=== PATIENT | male | born 1940 | race Caucasian/White ===

== ENCOUNTER 2018-03-28 09:29 | Emergency (ER) | payer MEDICARE, OTHER, SELFPAY ==
[2018-03-28] VITALS (11 sets, daily range): BP systolic 132–156; BP diastolic 71–96; PULSE 60–77; RESP 14–22; TEMP 36.2; O2SAT 95–99
--- NOTE | 2018-03-28 09:44 | ED_ITS ---
HPI - Neuro Symptoms/Deficit General Chief Complaint: Neuro Symptoms/Deficit Stated Complaint: headache Time Seen by Provider: 03/28/18 09:41 Source: patient Mode of arrival: ambulatory Limitations: no limitations History of Present Illness HPI Narrative: Patient has been confused since yesterday, and states he has been forgetting things, like his address. He has also been forgetting phone numbers he usually knows by heart. Patient states he had 3 ?TIAs? 2 days ago; however, when questioned, the episodes were dizzy spells that lasted for few seconds each. Patient denies any focal neurologic deficits at that time, though he does feel that his mentation has been slow over the last day. His friend, who is accompanied him, states that he seems to be functioning more slowly than usual. Patient denies chest pain, shortness of breath, nausea, or vomiting. No recent illnesses. No head trauma recently. Patient has never been formally diagnosed with a cerebral vascular accident of any kind. He states that he has been having the dizzy episodes for many years on and off, and that he calls them TIAs because a friend of his told him he was having TIAs when he had these episodes. Patient does note that he has had a very bad headache today. On Anticoagulants: Yes (ASA 81 mg) Related Data Home Medications Medication Instructions Recorded Confirmed ezetimibe [Zetia] 10 mg PO QPM #0 06/10/12 03/28/18 rosuvastatin [Crestor] 20 mg PO QPM #0 06/10/12 03/28/18 Fish Oil 1 cap PO BID 03/28/18 03/28/18 Vitamin D3 1 cap PO DAILY 03/28/18 03/28/18 ascorbic acid (vitamin C) [Vitamin 8 tab PO DAILY PRN 03/28/18 03/28/18 C] betamethasone valerate 1 applic TOPICAL DIRECTED 03/28/18 03/28/18 ibuprofen [Advil] 1 tab PO PRN PRN 03/28/18 03/28/18 multivitamin 1 tab PO DAILY 03/28/18 03/28/18 niacinamide 1 dose PO DIRECTED 03/28/18 03/28/18 omeprazole 1 cap PO DAILY 03/28/18 03/28/18 prednisone 1 dose PO DIRECTED 03/28/18 03/28/18 tamsulosin 1 - 2 cap PO DAILY 03/28/18 03/28/18 Previous Rx's Medication Instructions Recorded sumatriptan succinate [Imitrex] 50 mg PO Q2-4H PRN #20 tab 03/28/18 Allergies Allergy/AdvReac Type Severity Reaction Status Date / Time Sulfa (Sulfonamide Allergy Unknown Verified 03/28/18 09:37 Antibiotics) Review of Systems Review of Systems All systems reviewed & are unremarkable except as noted in HPI and below Constitutional Denies chills, Denies fever(s), Denies lethargy and Denies weakness Eyes Denies change in vision, Denies eye discharge, Denies irritation and Denies loss of vision ENT Ears, Nose, Mouth, and Throat: Denies change in voice, Reports dizziness, Denies neck pain and Denies sore throat Cardiovascular Denies chest pain, Denies irregular heart rhythm, Denies lightheadedness, Denies palpitations, Denies dyspnea, Denies dyspnea on exertion and Denies orthopnea Respiratory Denies cough, Denies dyspnea, Denies dyspnea on exertion and Denies wheezing Gastrointestinal Gastrointestinal: Denies abdominal pain, Denies change in bowel habits, Denies diarrhea, Denies nausea and Denies vomiting Genitourinary Denies hematuria, Denies flank pain, Denies urinary incontinence and Denies urinary urgency Musculoskeletal Denies neck pain Integumentary/Breasts Denies pruritus, Denies erythema, Denies rash and Denies wounds Neurologic Reports confusion, Reports dizziness, Denies loss of vision and Denies weakness Psychiatric Denies anxiety, Reports confusion, Denies depression, Denies homicidal ideation and Denies suicidal ideation Endocrine Denies palpitations Hematologic/Lymphatic Denies easy bruising Allergic/Immunologic Denies wheezing [facility] Medical History Hyperlipemia (Acute) Migraine (Acute) Atypical chest pain (Acute) Surgical History History of angioplasty Social History Smoking Status: Never smoker Exam Initial Vital Signs Initial Vital Signs: Vital Signs Temperature 97.1 F L 03/28/18 09:33 Pulse Rate 74 03/28/18 09:33 Respiratory Rate 14 03/28/18 09:33 Blood Pressure 133/75 03/28/18 09:33 Pulse Oximetry 98 03/28/18 09:33 Const General: cooperative and well developed Nutritional Appearance: well nourished Orientation: alert, awake, oriented x3 and not confused [facility] Head: normocephalic and atraumatic Ears: external ears normal and TM's normal bilaterally Nose: external nose normal and No nasal discharge Face and sinus: sinuses nontender, face symmetric, no sinus tenderness and No dry mucous membranes Mouth: oral mucosae normal and moist mucous membranes Teeth and gingiva: dentition normal Throat: tonsils normal and uvula midline Eyes General: appearance normal, both eyes and all related structures Eyelids: eyelids normal Conjunctivae: conjunctivae normal Sclera: sclerae normal Pupils: PERRL EOM: EOM intact bilaterally Neck Neck: normal visual inspection, trachea midline, No lymphadenopathy, No midline deformity and No JVD Lymphatic: No lymphedema Chest Chest: normal inspection of the chest Resp Effort & Inspection: normal respiratory effort, able to speak in complete sentences, no respiratory distress and no use of accessory muscles Auscultation: clear to auscultation bilaterally, no rales, no rhonchi and no wheezes Cardio Rate: regular rate Rhythm: regular rhythm Heart Sounds: no click, no gallops, no murmurs and no rubs Pulses: normal peripheral pulses GI Inspection: non-distended Palpation: soft, no hepatosplenomegaly, No guarding, No pulsatile mass and No tender Auscultation: normal bowel sounds Back/Spine/Pelvis Back: No CVA tenderness Cervical Spine: cervical ROM normal and No pain with cervical ROM Thoracic/Lumbar Spine: thoracic and lumbar spine normal to inspection Skin General: no rashes or lesions noted, No jaundice and No petechiae Neuro General: alert, oriented x3, gait normal and no focal motor deficits Speech: speech normal Gait: normal gait Motor: muscle tone normal throughout, strength 5/5 throughout, no pronator drift , no movement abnormalities noted, No fasciculations, No movement abnormality noted and No tremor Sensory Exam: no sensory deficits noted Other: Patient's neurologic exam is essentially normal. Extrem General: full ROM, no clubbing, cyanosis or edema, no pedal edema and no calf tenderness Psych Appearance: well kempt Mental Status: mental status grossly normal Attitude: cooperative Thought Content: normal and suicidality Judgment: judgment good Course Course Narrative: Patient was worked up in the emergency department with labs, EKG, and head CT. He was also treated symptomatically. Head CT was normal, so at this point, an MRI of the brain was ordered to sort out the dizzy episodes the patient was having. While patient was waiting to have his MRI done he was noted to have a run of narrow complex, supraventricular appearing tachycardia, for approximately 12 beats. This was noted on the surveillance monitor by staff. Patient was immediately asked how he was feeling if he had just felt dizzy and patient stated ?yes?. I felt that this was the most likely cause of the patient 's episodes of dizziness. However, since patient had other vague neurologic symptoms, I did go ahead with the MRI, which was found to be negative. I did go back and speak with the patient, his girlfriend, and his friend, all of who agreed the patient was back to his normal baseline. I have discussed with him the results of his tests, as well as home management of his symptoms. Patient is advised to follow up with his primary care physician, as well as Cardiology regarding the tachyarrhythmias. We have discussed the usual indications for return. Orders Ordered: Discontinued Medications Acetaminophen (Tylenol) 975 mg PO NOW ONE Stop: 03/28/18 11:32 Last Admin: 03/28/18 11:36 Dose: 975 mg Ketorolac Tromethamine (Toradol) 30 mg IV NOW ONE Stop: 03/28/18 11:32 Last Admin: 03/28/18 11:37 Dose: 30 mg Morphine Sulfate (Morphine) 4 mg IV NOW ONE Stop: 03/28/18 12:57 Last Admin: 03/28/18 13:13 Dose: 4 mg Vital Signs - 8 hr 03/28/18 09:33 Temperature 97.1 F L Pulse Rate 74 Respiratory Rate 14 Blood Pressure 133/75 Pulse Oximetry 98 MDM - Neuro Symptoms/Deficit Medical Records Attestation: I reviewed the patient's medical records. Lab Data Attestation: I reviewed the patient's lab results. Result diagrams: 03/28/18 09:45 03/28/18 09:45 Lab Results 03/28/18 03/28/18 03/28/18 Range/Units 09:45 09:45 09:45 WBC 6.6 (4.5-11.0) X10^3/uL RBC 4.61 (4.5-5.9) X10^6/uL Hgb 14.9 (13.5-17.5) g/dL Hct 44.0 (41-53) % MCV 95.3 (80-100) fL MCH 32.3 (26-34) PG MCHC 33.9 (30-36) % RDW 13.0 (11.6-14.8) % Plt Count 125 L (150-400) X10^3/uL Neut % (Auto) 86.5 H (50-75) % Lymph % (Auto) 6.0 L (25-40) % [place] % (Auto) 7.0 (3-14) % Eos % (Auto) 0.2 L (2-4) % Baso % (Auto) 0.3 (0-2) % Neut # (Auto) 5700 (4352-5400) /uL PT 12.3 (10.1-12.7) SECONDS INR 1.1 (0.9-1.3) APTT 24 L (26.4-36.2) SECONDS Sodium 136 L (137-145) mmol/L Potassium 3.8 (3.4-5.1) mmol/L Chloride 102 (98-107) mmol/L Carbon Dioxide 23 (22-32) mmol/L BUN 17 (9-20) mg/dL Creatinine 0.70 (0.66-1.25) mg/dL Estimated GFR > 60.0 (>60) mL/min BUN/Creatinine Ratio 24.3 H (6-22) Glucose 161 H (80-110) mg/dL Calcium 9.0 (8.4-10.2) mg/dL Total Bilirubin 0.8 (0.2-1.3) mg/dL AST 39 (17-59) IU/L ALT 37 (21-72) IU/L Alkaline Phosphatase 83 (38-126) U/L Total Creatine Kinase 93 (55-170) U/L CK-MB (CK-2) TNP CK-MB (CK-2) Rel Index TNP Troponin I < 0.012 (0.01-0.034) ng/mL Total Protein 6.7 (6.3-8.2) g/dL Albumin 4.2 (3.5-5.0) g/dL Globulin 2.5 (1.7-4.1) g/dL Albumin/Globulin Ratio 1.7 (1.0-2.8) Lipase 59 (23-300) U/L Ethyl Alcohol mg/dL 03/28/18 Range/Units 09:45 WBC (4.5-11.0) X10^3/uL RBC (4.5-5.9) X10^6/uL Hgb (13.5-17.5) g/dL Hct (41-53) % MCV (80-100) fL MCH (26-34) PG MCHC (30-36) % RDW (11.6-14.8) % Plt Count (150-400) X10^3/uL Neut % (Auto) (50-75) % Lymph % (Auto) (25-40) % [place] % (Auto) (3-14) % Eos % (Auto) (2-4) % Baso % (Auto) (0-2) % Neut # (Auto) (8104-0219) /uL PT (10.1-12.7) SECONDS INR (0.9-1.3) APTT (26.4-36.2) SECONDS Sodium (137-145) mmol/L Potassium (3.4-5.1) mmol/L Chloride (98-107) mmol/L Carbon Dioxide (22-32) mmol/L BUN (9-20) mg/dL Creatinine (0.66-1.25) mg/dL Estimated GFR (>60) mL/min BUN/Creatinine Ratio (6-22) Glucose (80-110) mg/dL Calcium (8.4-10.2) mg/dL Total Bilirubin (0.2-1.3) mg/dL AST (17-59) IU/L ALT (21-72) IU/L Alkaline Phosphatase (38-126) U/L Total Creatine Kinase (55-170) U/L CK-MB (CK-2) CK-MB (CK-2) Rel Index Troponin I (0.01-0.034) ng/mL Total Protein (6.3-8.2) g/dL Albumin (3.5-5.0) g/dL Globulin (1.7-4.1) g/dL Albumin/Globulin Ratio (1.0-2.8) Lipase (23-300) U/L Ethyl Alcohol < 10 mg/dL Imaging Data CT scan - head: Attestation: I personally reviewed and interpreted this imaging study as follows: My impression: Negative Radiologist's impression: PROCEDURE: CT HEAD/BRAIN WO CON INDICATIONS: memory loss, large frontal headache. TECHNIQUE: Noncontrast 4.5 mm thick angled axial sections acquired from the foramen magnum to the vertex, with coronal and sagittal reformats. For radiation dose reduction, the following was used: automated exposure control, adjustment of mA and/or kV according to patient size. COMPARISON: [facility], CT, HEAD WITHOUT CONTRAST, 10/19/2016, 21:47. FINDINGS: Image quality: Excellent. CSF spaces: Basal cisterns are patent. No extra-axial fluid collections. The ventricles are symmetric in size and shape. Brain: No intracranial bleeds or masses. There is cerebral volume loss for age , with resultant ventricular and sulcal prominence. There are periventricular and deep white matter chronic small vessel ischemic changes. There is intracranial internal carotid artery atherosclerosis. Skull and face: Calvarium and visualized facial bones appear intact, without suspicious lesions. Mild left maxillary sinus disease IMPRESSION: No acute intracranial abnormality. Mild left maxillary sinus disease. Dictated by: Anson Amador M.D. on 03/28/2018 at 10:37 Approved by: Anson Amador M.D. on 03/28/2018 at 10:44 MRI - head: Radiologist's impression: PROCEDURE: MR HEAD/BRAIN WO/W CON INDICATIONS: confusion, speech difficulty TECHNIQUE: Noncontrast axial T1 spin echo, axial T2 fast spin echo, sagittal and axial FLAIR, coronal T2 fast spin echo, axial gradient echo, axial diffusion and ADC through the brain. After the administration of contrast, axial T1 spin echo with fat saturation through the brain, with coronal and sagittal reformatted images. COMPARISON: [facility], CT, HEAD WITHOUT CONTRAST, 10/19/2016, 21:47. [facility], CT, CT HEAD/BRAIN WO CON, 03/28/2018, 10:14. FINDINGS: Image quality: Excellent. CSF spaces: Basal cisterns are patent. No extra-axial fluid collections. Ventricles are normal in size and shape. Brain: No midline shift. No intracranial bleeds or masses. No abnormal intracranial enhancement. There is cerebral volume loss for age. There is periventricular white matter chronic small vessel ischemic change. The brainstem appears normal. Diffusion-weighted images demonstrate no acute ischemic insults. No chronic ischemic insults. Normal intravascular flow voids are present. Skull and face: Calvarial marrow is normal in signal. Orbits appear normal. Note is made of bilateral lens replacements. Sinuses: Sinuses and mastoids appear clear. IMPRESSION: No findings of acute or subacute infarction can be seen. Note is made of age-appropriate brain parenchymal volume loss and chronic small vessel ischemic changes. No masses or abnormal enhancement can be seen. Dictated by: Deshaun Burris M.D. on 03/28/2018 at 15:32 Approved by: Deshaun Burris M.D. on 03/28/2018 at 15:34 Chest x-ray: Attestation: I personally reviewed and interpreted this imaging study as follows: My impression: Negative Radiologist's impression: [address] [address] XRay Report Signed Patient: Bon Corral MMR#: [id number] : 1940Acct:[id number] Age/Sex: 77 / MDate of Service: 03/28/18 Loc: ED Accession Number: [id number] Procedure: XR chest 1V Ordering Provider: Alyse Herron MD PROCEDURE: XR CHEST 1V INDICATIONS: chest pain TECHNIQUE: One view of the chest was acquired. COMPARISON: [facility] , CHEST 1 VIEW, 10/19/2016, 20:52. FINDINGS: Surgical changes and devices: None. Lungs and pleura: No pleural effusions or pneumothorax. Lungs are clear. Mediastinum: Mediastinal contours appear normal. Heart size is normal. Bones and chest wall: No suspicious bony lesions. Overlying soft tissues appear unremarkable. IMPRESSION: No acute pulmonary process. Dictated by: Alma Shelby M.D. on 03/28/2018 at 10:57 Approved by: Alma Shelby M.D. on 03/28/2018 at 10:58 ECG Data Attestation: I personally reviewed and interpreted this ECG as follows: (See below) Interpretation: Twelve lead EKG performed on March 28, 2018 at 9:45 a.m. as follows: Regular irregular ventricular rhythm with a rate of 68 beats per minute GA interval 167 millisecond QRS duration 102 millisecond QTC interval 408 milliseconds No ectopy Normal axis Interpretation: Sinus rhythm with sinus arrhythmia, probable IA of indeterminate age; abnormal EKG is interpreted by ED MD Discharge Plan Departure Patient Disposition: Home Clinical Impression: Tachyarrhythmia, Migraine Discharge Date/Time: 03/28/18 18:40 Interventions: ED Discharge Assessment Last Done: 03/28/18 19:41 Instructions: DI for Migraine, DI for Tachycardia Activity Restrictions/Additional Instructions: Your labs, CT, and MRI all look good. You have had at least one episode of a short-lived, high heart rate in the emergency department, which has been associated with your dizziness. It is not clear why you have had episodes of confusion, but there is no evidence of a stroke on any level, even a small one. Your heart rate is most likely the cause of your intermittent dizzy episodes. As such, you will need to follow up with your primary doctor and Cardiology to determine the next best step for your heart issues. Prescriptions: New sumatriptan succinate [Imitrex] 50 mg tablet 50 mg PO Q2-4H PRN (Reason: migraine headache) Qty: 20 RF: 0 No Action rosuvastatin [Crestor] 20 MG tablet 20 mg PO QPM Qty: 0 RF: 0 ezetimibe [Zetia] 10 MG tablet 10 mg PO QPM Qty: 0 RF: 0 betamethasone valerate 0.1 % ointment 1 applic Topical DIRECTED RF: 0 tamsulosin 0.4 mg capsule 1 - 2 cap PO DAILY RF: 0 multivitamin Tablet 1 tab PO DAILY RF: 0 prednisone 10 mg tablet 1 dose PO DIRECTED RF: 0 ibuprofen [Advil] 200 mg Tablet 1 tab PO PRN PRN (Reason: pain) RF: 0 Fish Oil 1 cap PO BID RF: 0 Vitamin D3 1 cap PO DAILY RF: 0 niacinamide 1 dose PO DIRECTED RF: 0 omeprazole 1 cap PO DAILY RF: 0 ascorbic acid (vitamin C) [Vitamin C] 500 mg Tablet 8 tab PO DAILY PRN (Reason: onset of cold symptoms) RF: 0 Referrals: [facility] [Provider Group] (Please call to make an appointment to be seen within the next week to follow up on your episodes of fast heartbeat.) Zack Iverson MD [Primary Care Provider] -
--- NOTE | 2018-03-28 10:13 | DI.CT.S_ITS ---
PROCEDURE: CT HEAD/BRAIN WO CON INDICATIONS: memory loss, large frontal headache. TECHNIQUE: Noncontrast 4.5 mm thick angled axial sections acquired from the foramen magnum to the vertex, with coronal and sagittal reformats. For radiation dose reduction, the following was used: automated exposure control, adjustment of mA and/or kV according to patient size. COMPARISON: [facility], CT, HEAD WITHOUT CONTRAST, 10/19/2016, 21:47. FINDINGS: Image quality: Excellent. CSF spaces: Basal cisterns are patent. No extra-axial fluid collections. The ventricles are symmetric in size and shape. Brain: No intracranial bleeds or masses. There is cerebral volume loss for age, with resultant ventricular and sulcal prominence. There are periventricular and deep white matter chronic small vessel ischemic changes. There is intracranial internal carotid artery atherosclerosis. Skull and face: Calvarium and visualized facial bones appear intact, without suspicious lesions. Mild left maxillary sinus disease IMPRESSION: No acute intracranial abnormality. Mild left maxillary sinus disease. Dictated by: Anson Amador M.D. on 03/28/2018 at 10:37 Approved by: Anson Amador M.D. on 03/28/2018 at 10:44
--- NOTE | 2018-03-28 10:13 | DI.RAD.S_ITS ---
PROCEDURE: XR CHEST 1V INDICATIONS: chest pain TECHNIQUE: One view of the chest was acquired. COMPARISON: [facility], , CHEST 1 VIEW, 10/19/2016, 20:52. FINDINGS: Surgical changes and devices: None. Lungs and pleura: No pleural effusions or pneumothorax. Lungs are clear. Mediastinum: Mediastinal contours appear normal. Heart size is normal. Bones and chest wall: No suspicious bony lesions. Overlying soft tissues appear unremarkable. IMPRESSION: No acute pulmonary process. Dictated by: Alma Shelby M.D. on 03/28/2018 at 10:57 Approved by: Alma Shelby M.D. on 03/28/2018 at 10:58
[2018-03-28 10:20] LABS: Add Manual Diff / Slide Review NO; Basophils Percent Auto 0.3 % (0-2); Eosinophils Percent Auto 0.2 % (2-4); Hemoglobin 14.9 g/dL (13.5-17.5); Mean Corpuscular HGB Conc 33.9 % (30-36); Mean Corpuscular Hemoglobin 32.3 PG (26-34); Mean Corpuscular Volume 95.3 fL (80-100); Neutrophils Absolute Auto 5700 /uL (3000-5900); Neutrophils Percent Auto 86.5 % (50-75); Platelet Count 125 X10^3/uL (150-400); Red Blood Cell Count 4.61 X10^6/uL (4.5-5.9); White Blood Cell Count 6.6 X10^3/uL (4.5-11.0)
[2018-03-28 10:21] LABS: INR 1.1 (0.9-1.3); Prothrombin Time 12.3 SECONDS (10.1-12.7)
[2018-03-28 10:24] LABS: PTT Partial Thromboplastin Tim 24 SECONDS (26.4-36.2)
[2018-03-28 10:26] LABS: Alanine Aminotransferase 37 IU/L (21-72); Albumin 4.2 g/dL (3.5-5.0); Albumin Globulin Ratio 1.7 (1.0-2.8); Alkaline Phosphatase 83 U/L (38-126); Aspartate Aminotransferase 39 IU/L (17-59); BUN Creatinine Ratio 24.3 (6-22); Bilirubin Total 0.8 mg/dL (0.2-1.3); Blood Urea Nitrogen 17 mg/dL (9-20); Carbon Dioxide 23 mmol/L (22-32); Chloride 102 mmol/L (98-107); Creatine Kinase 93 U/L (55-170); Estimated Glomerular Filt Rate > 60.0 mL/min (>60); Globulin 2.5 g/dL (1.7-4.1); Glucose 161 mg/dL (80-110); HEMOLYSIS 29 (0-50); Lipase 59 U/L (23-300); Potassium 3.8 mmol/L (3.4-5.1); Sodium 136 mmol/L (137-145); Total Protein 6.7 g/dL (6.3-8.2)
--- NOTE | 2018-03-28 10:27 | PC.NURSE ---
Per , ok to have water. Friend at bedside has left and pts sig other will be here soon
[2018-03-28 10:38] LABS: Troponin I < 0.012 ng/mL (0.01-0.034)
[2018-03-28 11:10] LABS: Ethanol (ETOH) < 10 mg/dL
--- NOTE | 2018-03-28 11:19 | PC.NURSE ---
Pt with tachy arrhythmia. Strip on chart, MD sevilla
--- NOTE | 2018-03-28 11:29 | DI.MRI.S_ITS ---
PROCEDURE: MR HEAD/BRAIN WO/W CON INDICATIONS: confusion, speech difficulty TECHNIQUE: Noncontrast axial T1 spin echo, axial T2 fast spin echo, sagittal and axial FLAIR, coronal T2 fast spin echo, axial gradient echo, axial diffusion and ADC through the brain. After the administration of contrast, axial T1 spin echo with fat saturation through the brain, with coronal and sagittal reformatted images. COMPARISON: [facility], CT, HEAD WITHOUT CONTRAST, 10/19/2016, 21:47. [facility], CT, CT HEAD/BRAIN WO CON, 03/28/2018, 10:14. FINDINGS: Image quality: Excellent. CSF spaces: Basal cisterns are patent. No extra-axial fluid collections. Ventricles are normal in size and shape. Brain: No midline shift. No intracranial bleeds or masses. No abnormal intracranial enhancement. There is cerebral volume loss for age. There is periventricular white matter chronic small vessel ischemic change. The brainstem appears normal. Diffusion-weighted images demonstrate no acute ischemic insults. No chronic ischemic insults. Normal intravascular flow voids are present. Skull and face: Calvarial marrow is normal in signal. Orbits appear normal. Note is made of bilateral lens replacements. Sinuses: Sinuses and mastoids appear clear. IMPRESSION: No findings of acute or subacute infarction can be seen. Note is made of age-appropriate brain parenchymal volume loss and chronic small vessel ischemic changes. No masses or abnormal enhancement can be seen. Dictated by: Deshaun Burris M.D. on 03/28/2018 at 15:32 Approved by: Deshaun Burris M.D. on 03/28/2018 at 15:34
[2018-03-28] MEDS: ACETAMINOPHEN 325 MG TABLET 975 MG PO (11:36)
[2018-03-28] MEDS: KETOROLAC 60 MG/2 ML VIAL 30 MG IV (11:37)
[2018-03-28] MEDS: MORPHINE 4 MG/ML INJ IV (13:13)
== END 2018-03-28 18:40 | disposition home or self-care (01) ==
PROVIDERS: Emergency Provider Emergency Medicine; Family Provider Internal Medicine; PCP Internal Medicine
DX: G43.909 Migraine, unspecified, not intractable, without status migrainosus (principal); R00.0 Tachycardia, unspecified
CPT/HCPCS: 36591; 70450; 70553; 71045; 80053; 80320; 82550; 83690; 84484; 85025; 85610; 85730; 93005; 93010; 93041; 96374; 96375; 99285; 99291; J1885; J2270

== ENCOUNTER → 2018-07-20 16:19 | Outpatient (CLI) | payer MEDICARE, OTHER, SELFPAY | PROVIDERS: Family Provider Internal Medicine; PCP Internal Medicine; Visit Provider Urology | DX: R97.20 Elevated prostate specific antigen [PSA] (principal) | CPT/HCPCS: 36415; 84153 ==

== ENCOUNTER 2018-08-16 13:22 | Day surgery (SDC) | payer MEDICARE, OTHER, SELFPAY ==
[2018-08-16] VITALS (7 sets, daily range): BP systolic 103–136; BP diastolic 70–92; PULSE 57–70; RESP 12–24; TEMP 36.1–36.3; O2SAT 92–96; BMI 24.4
[2018-08-16] MEDS: SODIUM CHLORIDE 0.9% 1,000 ML 200 ML IV (13:59)
--- NOTE | 2018-08-16 14:16 | PM.HP.1 ---
History of Present Illness Date Patient Seen: 08/16/18 Time Patient Seen: 14:16 Chief complaint: [id number] SCREENING COLONOSCOPY Narrative: 78-year-old male who presents for colorectal screening. His last examination was 7 years ago. He has a personal history of colon polyps removed at that time. On further history today he denies any recent gastrointestinal symptoms. No nausea, vomiting, loss of appetite, abdominal pain, unexplained weight loss, change in bowel habits, diarrhea, constipation, melena, hematochezia, or bright red blood per rectum. Patient History Medical History Hyperlipemia (Acute) Atypical chest pain (Acute) Benign prostatic hyperplasia (Acute) Gastroesophageal reflux disease (Acute) History of TIA (transient ischemic attack) (Acute) History of migraine (Acute) History of myocardial infarction (Acute) Hypertension (Acute) Urinary frequency (Acute) Migraine (Inactive) Surgical History History of angioplasty History of coronary artery stent placement (Acute) Social History household members: none Smoking Status: Never smoker Family & Social History Social History: household members none Tobacco & Substance use: Smoking Status Never smoker alcohol intake frequency 0-2 drinks per day Substance Use Type does not use Meds Home Medications Medication Instructions Recorded Confirmed Type ezetimibe [Zetia] 10 mg PO QPM #0 06/10/12 08/16/18 History rosuvastatin [Crestor] 20 mg PO QPM #0 06/10/12 08/16/18 History Fish Oil 1 cap PO BID 03/28/18 08/16/18 History Vitamin D3 1 cap PO DAILY 03/28/18 08/16/18 History ascorbic acid (vitamin C) [Vitamin 8 tab PO DAILY PRN 03/28/18 08/16/18 History C] multivitamin 1 tab PO DAILY 03/28/18 08/16/18 History niacinamide 1 dose PO DIRECTED 03/28/18 08/16/18 History omeprazole 1 cap PO DAILY 03/28/18 08/16/18 History tamsulosin 1 - 2 cap PO DAILY 03/28/18 08/16/18 History Allergies Allergy/AdvReac Type Severity Reaction Status Date / Time Sulfa (Sulfonamide Allergy Unknown Verified 08/16/18 13:46 Antibiotics) Review of Systems Review of Systems All systems reviewed & are unremarkable except as noted in HPI and below Exam Vital Signs (past 8 hours): - 08/16/18 13:50 Temperature 97.2 F L Pulse Rate 65 Respiratory Rate 24 Blood Pressure 136/92 H Pulse Oximetry 96 Oxygen Delivery Method Room Air Narrative Exam Narrative: Well-nourished well-developed male in no acute distress. Alert oriented x3 Sclera nonicteric Regular rhythm Abdomen is protuberant but soft. Nondistended. No masses. Extremities show no clubbing or cyanosis Objective Labs Labs: No recent laboratory or radiographic studies review Assessment & Plan Assessment & Plan narrative: 78-year-old male requiring colorectal screening for personal history colon polyps. Colonoscopy is currently recommended since his last examination was 7 years ago. Technical details of procedure were explained. Risks, benefits, and alternatives were discussed. Risks including but not limited to sedation, aspiration, bleeding, pain, missed lesion, incomplete examination, need for further radiographic studies, colonic perforation, need for major abdominal surgery, and all attendant risks of major surgery were discussed at length. All questions were answered to his satisfaction, and he voiced understanding. Consent was placed on the chart. We will proceed as above.
--- NOTE | 2018-08-16 14:19 | PM.PREOP ---
Pre-operative Note Interval Note History & Physical reviewed/Exam performed by Physician: Yes Changes to H&P: No H&P completed within 30 days and has changed as indicated here:: Patient seen and examined today. History and physical examination documented and placed on the chart. Obviously, there have been no changes in the last 15 min. Proceed with colonoscopy today as planned. ASA Class (for procedural sedation): II
[2018-08-16] MEDS: fentaNYL 250 MCG/5 ML INJ IV (14:37)
[2018-08-16] MEDS: MIDAZOLAM 5 MG/5 ML VIAL IV (14:38)
--- NOTE | 2018-08-16 14:47 | PM.OP.ENDO ---
Operative Date/Time/Diagnoses Date of procedure: 08/16/18 Time of procedure: 14:47 Pre-op diagnosis: Personal history of colon polyps Post-op diagnosis: other (Diverticulosis but otherwise normal colon and rectum) Procedure & Clinicians Study performed: 1. Sedation per surgeon 2. Colonoscopy Same procedure as scheduled: Yes Indications: 78-year-old male with personal history of colon polyps. Last colonoscopy was 7 years ago. He presents now for screening. Colonoscopy is once again recommended. Surgeon: Zack Wolff Procedure Notes SCOAP/Timeout: Yes Procedure in detail: After obtaining informed consent, the patient was brought to the GI suite and placed in the left lateral decubitus position on the examination table. After placement of appropriate monitors, the patient was given incremental doses of Versed and Fentanyl until an appropriate level of sedation was achieved. A time out was held per SCOAP protocol. A digital rectal examination was performed and did not reveal any masses or obstructing lesions. The colonoscope was gently passed into the patient's anus and the entire colon navigated to the level of the cecum with minimal difficulty. Terminal ileum was intubated and noted to be grossly normal. Once in the cecum, the scope was withdrawn being sure to go before and beyond all mucosal folds and prominences and get an excellent examination. The findings are noted above. At the level of the rectal vault, the scope was retroflexed and the internal anal canal was examined. The scope was straightened and air aspirated from the colon. The instrument was removed from the patient's body and the procedure was concluded. The patient was allowed to awaken from sedation without difficulty and taken to the post-anesthesia care unit in good condition. Scope withdrawal time: 9:31 min Sedation minutes: 26 Findings: diverticulosis and other findings (Otherwise normal colon and rectum) Specimen(s): none sent Complications: none Recommendations: High fiber diet and Other recommendation (No further colonoscopy indicated in the absence of any new symptoms or issues) Plan for aftercare: 1. Discharge home Follow up: as needed Disposition: PACU
--- NOTE | 2018-08-16 15:27 | SUR.PHASEII ---
Stable phase 2, ready for discharge, here just awaiting his friend to pick him up, report to mckay.
== END 2018-08-16 15:38 | disposition home or self-care (01) ==
PROVIDERS: Family Provider Internal Medicine; PCP Internal Medicine; Visit Provider Surgery
PROC: 0DJD8ZZ Inspection of Lower Intestinal Tract, Via Natural or Artificial Opening Endoscopic (ICD-10-PCS; CPT 45378; principal; 2018-08-16 15:00)
DX: Z86.010 Personal history of colon polyps (principal); K57.30 Diverticulosis of large intestine without perforation or abscess without bleeding; E78.5 Hyperlipidemia, unspecified; I10 Essential (primary) hypertension; Z86.73 Personal history of transient ischemic attack (TIA), and cerebral infarction without residual deficits; I25.2 Old myocardial infarction
CPT/HCPCS: G0105; 99152; 99153; J2250; J3010

== ENCOUNTER → 2018-09-26 11:38 | Outpatient (CLI) | payer MEDICARE, OTHER, SELFPAY ==
[2018-09-26 13:14] LABS: Cholesterol 176 mg/dL (140-199); HDL Cholesterol 74 mg/dL (40-60); LDL Cholesterol Calculated 87 mg/dL (<100); Triglycerides 77 mg/dL (35-150)
== END ==
PROVIDERS: Family Provider Internal Medicine; PCP Internal Medicine; Visit Provider Internal Medicine Endocrinology, Diabetes & Metabolism
DX: E78.01 Familial hypercholesterolemia (principal); R73.01 Impaired fasting glucose
CPT/HCPCS: 36415; 80061; 83036

== ENCOUNTER → 2019-03-28 16:51 | Outpatient (CLI) | payer MEDICARE, OTHER, SELFPAY ==
[2019-03-28 17:44] LABS: Alanine Aminotransferase 52 IU/L (21-72); Aspartate Aminotransferase 47 IU/L (17-59)
== END ==
PROVIDERS: PCP Internal Medicine; Visit Provider Internal Medicine
DX: E78.00 Pure hypercholesterolemia, unspecified (principal)
CPT/HCPCS: 36415; 84450; 84460

== ENCOUNTER → 2019-05-25 10:03 | Outpatient (CLI) | payer MEDICARE, OTHER, SELFPAY ==
[2019-05-25 13:26] LABS: Prostate Specific Antigen 3.29 ng/mL (0.10-4.00)
== END ==
PROVIDERS: Family Provider Internal Medicine; PCP Internal Medicine; Visit Provider Urology
DX: R97.20 Elevated prostate specific antigen [PSA] (principal)
CPT/HCPCS: 36415; 84153

== ENCOUNTER → 2019-10-18 11:19 | Outpatient (CLI) | payer MEDICARE, OTHER, SELFPAY ==
[2019-10-18 13:16] LABS: Cholesterol 127 mg/dL (140-199); HDL Cholesterol 78 mg/dL (40-60); LDL Cholesterol Calculated 40 mg/dL (<100); Triglycerides 46 mg/dL (35-150)
== END ==
PROVIDERS: Family Provider Internal Medicine; PCP Internal Medicine; Referring Provider Internal Medicine Endocrinology, Diabetes & Metabolism; Visit Provider Internal Medicine Endocrinology, Diabetes & Metabolism
DX: E78.01 Familial hypercholesterolemia (principal)
CPT/HCPCS: 36415; 80061

== ENCOUNTER → 2020-01-01 11:24 | Outpatient (CLI) | payer MEDICARE, OTHER, SELFPAY ==
[2020-01-01 12:57] LABS: Alanine Aminotransferase 37 IU/L (<50); Albumin 4.2 g/dL (3.5-5.0); Albumin Globulin Ratio 1.9 (1.0-2.8); Alkaline Phosphatase 87 U/L (38-126); Aspartate Aminotransferase 36 IU/L (17-59); BUN Creatinine Ratio 27.9 (6-22); Blood Urea Nitrogen 19 mg/dL (9-20); Calcium 9.5 mg/dL (8.4-10.2); Carbon Dioxide 29 mmol/L (22-32); Chloride 105 mmol/L (98-107); Cholesterol 143 mg/dL (140-199); Estimated Glomerular Filt Rate > 60.0 mL/min (>60); Globulin 2.2 g/dL (1.7-4.1); Glucose 110 mg/dL (80-110); HDL Cholesterol 74 mg/dL (40-60); HEMOLYSIS < 15 (0-50); LDL Cholesterol Calculated 57 mg/dL (<100); Potassium 4.3 mmol/L (3.4-5.1); Sodium 137 mmol/L (137-145); Total Protein 6.4 g/dL (6.3-8.2); Triglycerides 59 mg/dL (35-150)
== END ==
PROVIDERS: Family Provider Internal Medicine; PCP Internal Medicine; Referring Provider Internal Medicine; Visit Provider Internal Medicine
DX: E78.2 Mixed hyperlipidemia (principal); I10 Essential (primary) hypertension
CPT/HCPCS: 36415; 80053; 80061

== ENCOUNTER → 2020-02-14 10:03 | Outpatient (CLI) | payer MEDICARE, OTHER, SELFPAY ==
[2020-02-14 11:57] LABS: Alanine Aminotransferase 40 IU/L (<50); Albumin 4.1 g/dL (3.5-5.0); Albumin Globulin Ratio 1.7 (1.0-2.8); Alkaline Phosphatase 83 U/L (38-126); Aspartate Aminotransferase 39 IU/L (17-59); BUN Creatinine Ratio 18.8 (6-22); Bilirubin Total 0.9 mg/dL (0.2-1.3); Blood Urea Nitrogen 15 mg/dL (9-20); Calcium 9.3 mg/dL (8.4-10.2); Carbon Dioxide 26 mmol/L (22-32); Chloride 105 mmol/L (98-107); Cholesterol 149 mg/dL (140-199); Estimated Glomerular Filt Rate > 60.0 mL/min (>60); Globulin 2.4 g/dL (1.7-4.1); Glucose 108 mg/dL (80-110); HDL Cholesterol 74 mg/dL (40-60); HEMOLYSIS < 15 (0-50); LDL Cholesterol Calculated 64 mg/dL (<100); Potassium 4.7 mmol/L (3.4-5.1); Sodium 137 mmol/L (137-145); Total Protein 6.5 g/dL (6.3-8.2); Triglycerides 53 mg/dL (35-150)
== END ==
PROVIDERS: Family Provider Internal Medicine; PCP Internal Medicine; Referring Provider Internal Medicine Endocrinology, Diabetes & Metabolism; Visit Provider Internal Medicine Endocrinology, Diabetes & Metabolism
DX: E78.01 Familial hypercholesterolemia (principal)
CPT/HCPCS: 36415; 80053; 80061

== ENCOUNTER → 2020-04-17 11:21 | Outpatient (CLI) | payer MEDICARE, OTHER, SELFPAY ==
[2020-04-17 13:31] LABS: Cholesterol 164 mg/dL (140-199); HDL Cholesterol 83 mg/dL (40-60); LDL Cholesterol Calculated 68 mg/dL (<100); Triglycerides 64 mg/dL (35-150)
== END ==
PROVIDERS: Family Provider Internal Medicine; PCP Internal Medicine; Referring Provider Internal Medicine Endocrinology, Diabetes & Metabolism; Visit Provider Internal Medicine Endocrinology, Diabetes & Metabolism
DX: E78.01 Familial hypercholesterolemia (principal)
CPT/HCPCS: 36415; 80061

== ENCOUNTER 2020-07-14 15:47 | Emergency (ER) | payer MEDICARE, OTHER, SELFPAY ==
[2020-07-14] VITALS (11 sets, daily range): BP systolic 131–163; BP diastolic 78–91; PULSE 51–76; RESP 10–20; TEMP 36.7–36.8; O2SAT 90–98
--- NOTE | 2020-07-14 15:55 | DI.RAD.S_ITS ---
PROCEDURE: XR CHEST 1V INDICATIONS: chest pain TECHNIQUE: One view of the chest was acquired. COMPARISON: [facility], , XR CHEST 1V, 03/28/2018, 9:56. [facility], , CHEST 1 VIEW, 10/19/2016, 20:52. FINDINGS: Surgical changes and devices: None. Lungs and pleura: Lungs are mildly abnormal, with a mild interstitial prominence. No pleural effusions or pneumothorax. Mediastinum: Mediastinal contours appear stable considering patient mild rotation rightward. Heart size is normal. Bones and chest wall: No suspicious bony lesions. Overlying soft tissues appear unremarkable. IMPRESSION: Chronic mild interstitial prominence. Cardiovascular structures are slightly accentuated at the mediastinal borders by patient rotation rightward. Dictated by: Pedro Tello M.D. on 07/14/2020 at 16:39 Approved by: Pedro Tello M.D. on 07/14/2020 at 16:40
[2020-07-14 16:24] LABS: Add Manual Diff / Slide Review NO; Basophils Absolute Auto 0 /uL (0-100); Basophils Percent Auto 0.8 % (0-2); Eosinophils Absolute Auto 0 /uL (0-450); Eosinophils Percent Auto 0.7 % (2-4); Hematocrit 42.9 % (41-53); Hemoglobin 14.6 g/dL (13.5-17.5); Lymphocytes Absolute Auto 900 /uL (1100-4500); Lymphocytes Percent Auto 20.4 % (25-40); Mean Corpuscular HGB Conc 34.1 % (30-36); Mean Corpuscular Hemoglobin 32.5 PG (26-34); Mean Corpuscular Volume 95.4 fL (80-100); Monocytes Absolute Auto 500 /uL (0-900); Monocytes Percent Auto 12.5 % (3-14); Neutrophils Absolute Auto 2900 /uL (1500-7000); Neutrophils Percent Auto 65.6 % (50-75); Platelet Count 145 X10^3/uL (150-400); Red Blood Cell Count 4.49 X10^6/uL (4.5-5.9); Red Cell Distribution Width 13.5 % (11.6-14.8); White Blood Cell Count 4.4 X10^3/uL (4.5-11.0)
[2020-07-14 16:28] LABS: INR 1.1 (0.9-1.3); Prothrombin Time 12.3 SECONDS (10.1-12.7)
[2020-07-14 16:31] LABS: PTT Partial Thromboplastin Tim 30 SECONDS (26.4-36.2)
[2020-07-14 16:34] LABS: Alanine Aminotransferase 45 IU/L (<50); Albumin 4.2 g/dL (3.5-5.0); Albumin Globulin Ratio 1.6 (1.0-2.8); Alkaline Phosphatase 74 U/L (38-126); Aspartate Aminotransferase 40 IU/L (17-59); BUN Creatinine Ratio 21.1 (6-22); Bilirubin Total 0.6 mg/dL (0.2-1.3); Blood Urea Nitrogen 15 mg/dL (9-20); Calcium 9.4 mg/dL (8.4-10.2); Carbon Dioxide 25 mmol/L (22-32); Chloride 107 mmol/L (98-107); Creatine Kinase 135 U/L (55-170); Estimated Glomerular Filt Rate > 60.0 mL/min (>60); Globulin 2.7 g/dL (1.7-4.1); Glucose 83 mg/dL (80-110); HEMOLYSIS 22 (0-50); Lipase 87 U/L (23-300); Potassium 3.9 mmol/L (3.4-5.1); Sodium 137 mmol/L (137-145); Total Protein 6.9 g/dL (6.3-8.2)
--- NOTE | 2020-07-14 16:39 | ED_ITS ---
HPI - Chest Pain General Chief Complaint: Chest Pain Stated Complaint: respiratory issues Time Seen by Provider: 07/14/20 16:24 Source: patient Mode of arrival: Ambulatory Limitations: no limitations History of Present Illness HPI narrative: Patient is an 80-year-old male. He does have a history of coronary artery disease and had a stent placed but this was 20 years ago. Also has a history of high cholesterol. He does have a primary doctor that he sees on a fairly regular basis. He reports the emergency department today stating that he for the past week he has had intermittent episodes where he is having d iscomfort in his neck. Describes it is both sides of his neck. Does not get worse with movement or palpation. Does not seem to be associated with any exercise. He also reports that he has noticed some issues with shortness of breath with exertion although he states that this is not with his normal everyday activities with walking. He states he can walk several miles without having any issues but is when he starts to run or is on a treadmill with elevation associated with that that he become short of breath. He is here because he thinks that there are potentially issues with the vasculature in his neck. Related Data Home Medications Medication Instructions Recorded Confirmed ezetimibe [Zetia] 10 mg PO QPM #0 06/10/12 07/14/20 ascorbic acid (vitamin C) [Vitamin 8 tab PO DAILY PRN 03/28/18 07/14/20 C] multivitamin 1 tab PO DAILY 03/28/18 07/14/20 tamsulosin 1 - 2 cap PO DAILY 03/28/18 07/14/20 aspirin [Adult Low Dose Aspirin] 81 mg PO DAILY 07/14/20 07/14/20 niacin 500 mg PO DAILY 07/14/20 07/14/20 rosuvastatin 40 mg PO DAILY 07/14/20 07/14/20 Allergies Allergy/AdvReac Type Severity Reaction Status Date / Time Sulfa (Sulfonamide Allergy Unknown Verified 07/14/20 16:13 Antibiotics) Review of Systems Constitutional Constitutional: Denies headache(s) ENT Ears, Nose, Mouth, and Throat: Denies headache(s) Comments: Neck pain Cardiovascular Cardiovascular: Denies chest pain and Denies dyspnea Respiratory Respiratory: Denies cough and Denies dyspnea Gastrointestinal Gastrointestinal: Denies abdominal pain and Denies nausea Musculoskeletal Musculoskeletal: Denies back pain and Denies myalgias Integumentary/Breasts Skin/Breast: Denies rash Neurologic Neurologic: Denies behavioral changes and Denies headache(s) Psychiatric Psychiatric: Denies behavioral changes Hematologic/Lymphatic On Anticoagulants: No Allergic/Immunologic Allergic/Immunologic: Denies urticaria Patient History Medical History Atypical chest pain Benign prostatic hyperplasia Gastroesophageal reflux disease History of migraine History of myocardial infarction History of TIA (transient ischemic attack) Hyperlipemia Hypertension Migraine Urinary frequency Surgical History History of angioplasty History of coronary artery stent placement Social History household members: none Smoking Status: Never smoker Smoking Status: Never smoker alcohol intake frequency: 0-2 drinks per day Substance Use Type: does not use Exam Initial Vital Signs Initial Vital Signs: Vital Signs Temperature 98.2 F 07/14/20 15:50 Pulse Rate 76 07/14/20 15:50 Respiratory Rate 20 07/14/20 15:50 Blood Pressure 149/88 H 07/14/20 15:50 Pulse Oximetry 97 07/14/20 15:50 Const General: cooperative and comfortable Limitations: mental status not altered HENMT Head: normal to inspection and normocephalic Neck Lymphatic: No lymphadenopathy Chest Chest: No crepitus and No tenderness Resp Effort & Inspection: normal respiratory effort Auscultation: clear to auscultation bilaterally Cardio Rate: regular rate Rhythm: regular rhythm GI Inspection: non-distended Palpation: soft Skin Lesions: no lesions Rashes: no rashes Neuro General: patient alert, patient awake and patient oriented x3 Cognition: normal cognition Speech: speech normal Extrem General: normal to inspection and capillary refill normal Psych Appearance: grossly normal and well kempt Scores GCS Brenna coma scale eye opening: Spontaneous Howard coma scale verbal response: Orientated Howard coma scale motor response: Obey commands Brenna coma scale total score: 15 Course Orders Ordered: ED Orders 07/14/20 15:55 XR chest 1V Stat EKG-12 Lead Stat 07/14/20 16:05 BNP [NT-proBNP (BNP-Adult 18+)] Stat Complete Blood Count AUTO DIFF Stat Comprehensive Metabolic Panel Stat Lipase Stat Partial Thromboplastin Time Stat Prothrombin Time INR Stat Troponin & CK Cardiac Panel Stat 07/14/20 18:47 Troponin & CK Cardiac Panel Stat Vital Signs Vital signs: Vital Signs - 8 hr 07/14/20 15:50 07/14/20 16:01 07/14/20 16:09 Temperature 98.2 F 98.1 F Pulse Rate 76 57 L 57 L Respiratory Rate 20 18 15 Blood Pressure 149/88 H 145/84 H Pulse Oximetry 97 96 98 07/14/20 16:30 07/14/20 17:00 07/14/20 17:30 Temperature Pulse Rate 53 L 52 L 52 L Respiratory Rate 14 14 15 Blood Pressure 158/82 H 150/89 H 163/91 H Pulse Oximetry 96 95 97 07/14/20 18:00 07/14/20 18:01 07/14/20 19:01 Temperature Pulse Rate 52 L 51 L Respiratory Rate 16 17 Blood Pressure 154/83 H Pulse Oximetry 98 97 90 L MDM - Chest Pain Lab Data Attestation: I reviewed the patient's lab results. Result diagrams: 07/14/20 16:05 07/14/20 16:05 Labs: Lab Results 07/14/20 07/14/20 07/14/20 Range/Units 16:05 16:05 16:05 WBC 4.4 L (4.5-11.0) X10^3/uL RBC 4.49 L (4.5-5.9) X10^6/uL Hgb 14.6 (13.5-17.5) g/dL Hct 42.9 (41-53) % MCV 95.4 (80-100) fL MCH 32.5 (26-34) PG MCHC 34.1 (30-36) % RDW 13.5 (11.6-14.8) % Plt Count 145 L (150-400) X10^3/uL Neut % (Auto) 65.6 (50-75) % Lymph % (Auto) 20.4 L (25-40) % [place] % (Auto) 12.5 (3-14) % Eos % (Auto) 0.7 L (2-4) % Baso % (Auto) 0.8 (0-2) % Neut # (Auto) 2900 (9485-5203) /uL Lymph # (Auto) 900 L (2318-6455) /uL [place] # (Auto) 500 (0-900) /uL Eos # (Auto) 0 (0-450) /uL Baso # (Auto) 0 (0-100) /uL PT 12.3 (10.1-12.7) SECONDS INR 1.1 (0.9-1.3) APTT 30 D (26.4-36.2) SECONDS Sodium 137 (137-145) mmol/L Potassium 3.9 (3.4-5.1) mmol/L Chloride 107 (98-107) mmol/L Carbon Dioxide 25 (22-32) mmol/L BUN 15 (9-20) mg/dL Creatinine 0.71 (0.66-1.25) mg/dL Estimated GFR > 60.0 (>60) mL/min BUN/Creatinine Ratio 21.1 (6-22) Glucose 83 (80-110) mg/dL Calcium 9.4 (8.4-10.2) mg/dL Total Bilirubin 0.6 (0.2-1.3) mg/dL AST 40 (17-59) IU/L ALT 45 (<50) IU/L Alkaline Phosphatase 74 (38-126) U/L Total Creatine Kinase 135 (55-170) U/L CK-MB (CK-2) 1.07 (<2.37) ng/mL CK-MB (CK-2) Rel Index 0.8 L (1.5-5.0) % Troponin I < 0.012 (0.01-0.034) ng/mL NT-Pro-B Natriuret Pep 107 (<450) pg/mL Total Protein 6.9 (6.3-8.2) g/dL Albumin 4.2 (3.5-5.0) g/dL Globulin 2.7 (1.7-4.1) g/dL Albumin/Globulin Ratio 1.6 (1.0-2.8) Lipase 87 (23-300) U/L 07/14/20 Range/Units 18:47 WBC (4.5-11.0) X10^3/uL RBC (4.5-5.9) X10^6/uL Hgb (13.5-17.5) g/dL Hct (41-53) % MCV (80-100) fL MCH (26-34) PG MCHC (30-36) % RDW (11.6-14.8) % Plt Count (150-400) X10^3/uL Neut % (Auto) (50-75) % Lymph % (Auto) (25-40) % [place] % (Auto) (3-14) % Eos % (Auto) (2-4) % Baso % (Auto) (0-2) % Neut # (Auto) (4016-6196) /uL Lymph # (Auto) (7573-9740) /uL [place] # (Auto) (0-900) /uL Eos # (Auto) (0-450) /uL Baso # (Auto) (0-100) /uL PT (10.1-12.7) SECONDS INR (0.9-1.3) APTT (26.4-36.2) SECONDS Sodium (137-145) mmol/L Potassium (3.4-5.1) mmol/L Chloride (98-107) mmol/L Carbon Dioxide (22-32) mmol/L BUN (9-20) mg/dL Creatinine (0.66-1.25) mg/dL Estimated GFR (>60) mL/min BUN/Creatinine Ratio (6-22) Glucose (80-110) mg/dL Calcium (8.4-10.2) mg/dL Total Bilirubin (0.2-1.3) mg/dL AST (17-59) IU/L ALT (<50) IU/L Alkaline Phosphatase (38-126) U/L Total Creatine Kinase 120 (55-170) U/L CK-MB (CK-2) 0.99 (<2.37) ng/mL CK-MB (CK-2) Rel Index 0.8 L (1.5-5.0) % Troponin I < 0.012 (0.01-0.034) ng/mL NT-Pro-B Natriuret Pep (<450) pg/mL Total Protein (6.3-8.2) g/dL Albumin (3.5-5.0) g/dL Globulin (1.7-4.1) g/dL Albumin/Globulin Ratio (1.0-2.8) Lipase (23-300) U/L Imaging Data Chest x-ray: Radiologist's Impression: [address] [id number] ReportSigned Patient: Bon [place]ral MMR#: [id number]: 1940Acct:[id number]/Sex: 80 / MDate of Service: 07/14/20Loc: EDAccession Number: [id number] Procedure: XR chest 1V Ordering Provider: Jaime Carlos D.O. PROCEDURE: XR CHEST 1V INDICATIONS: chest pain TECHNIQUE: One view of the chest was acquired. COMPARISON: [facility], , XR CHEST 1V, 03/28/2018, 9:56. [facility], , CHEST 1 VIEW, 10/19/2016, 20:52. FINDINGS: Surgical changes and devices: None. Lungs and pleura: Lungs are mildly abnormal, with a mild interstitial prominence. No pleural effusions or pneumothorax. Mediastinum: Mediastinal contours appear stable considering patient mild rotation rightward. Heart size is normal. Bones and chest wall: No suspicious bony lesions. Overlying soft tissues appear unremarkable. IMPRESSION: Chronic mild interstitial prominence. Cardiovascular structures are slightly accentuated at the mediastinal borders by patient rotation rightward. Dictated by: Pedro Tello M.D. on 07/14/2020 at 16:39 Approved by: Pedro Tello M.D. on 07/14/2020 at 16:40 ECG Data Attestation: I personally reviewed and interpreted this ECG as follows: Prior ECG tracings: not available for review Interpretation: Sinus bradycardia Ventricular rate of 59 Normal axis Normal QRS Normal QTC No ST T wave changes MDM Narrative Medical decision making narrative: Patient is asymptomatic here in the emergency department. He came under the advice from the nurse at his primary doctor's office. His EKG is unremarkable. He has had troponins negative x2. The shortness of breath with exertion is not during his normal daily activities but when he is exercising. The pain in his neck is not consistent with classic ACS. Had a discussion with him regarding his symptoms. We did discuss his risks of ACS. Plan will be is to discharge home. He will continue all of his medications. He was given return precautions. Will have him contact his primary doctor to discuss further workup to include a stress test or potential further evaluation of his neck vasculature is to include carotid Dopplers. He expressed understanding and agree with this plan Discharge Plan Departure Patient Disposition: Home Clinical Impression: Atypical chest pain Instructions: DI for Atypical Chest Pain Activity Restrictions/Additional Instructions: I do recommend that you contact your primary doctor to discuss further workup to include a stress test and also to discuss the indications for further imaging of the vessels in your neck. Return to the emergency department for any new or worsening symptoms. Continue all of your medications as directed. Prescriptions: No Action ezetimibe [Zetia] 10 MG tablet 10 mg PO QPM Qty: 0 RF: 0 tamsulosin 0.4 mg capsule 1 - 2 cap PO DAILY RF: 0 multivitamin Tablet 1 tab PO DAILY RF: 0 ascorbic acid (vitamin C) [Vitamin C] 500 mg Tablet 8 tab PO DAILY PRN (Reason: onset of cold symptoms) RF: 0 Adult Low Dose Aspirin 81 mg Tablet 81 mg PO DAILY RF: 0 rosuvastatin 40 mg tablet 40 mg PO DAILY RF: 0 niacin 500 mg tablet extended release 500 mg PO DAILY RF: 0 Referrals: Zack Iverson MD [Primary Care Provider] -
[2020-07-14 16:46] LABS: NT-proBNP (BNP-Adult 18+) 107 pg/mL (<450); Troponin I < 0.012 ng/mL (0.01-0.034)
[2020-07-14 16:49] LABS: CKMB % Relative Index 0.8 % (1.5-5.0); Creatine Kinase MB 1.07 ng/mL (<2.37)
[2020-07-14 19:03] LABS: Creatine Kinase 120 U/L (55-170)
[2020-07-14 19:16] LABS: Troponin I < 0.012 ng/mL (0.01-0.034)
[2020-07-14 19:25] LABS: CKMB % Relative Index 0.8 % (1.5-5.0); Creatine Kinase MB 0.99 ng/mL (<2.37)
== END 2020-07-14 19:47 | disposition home or self-care (01) ==
PROVIDERS: Emergency Provider Emergency Medicine; Family Provider Internal Medicine; PCP Internal Medicine
DX: R07.89 Other chest pain (principal); M54.2 Cervicalgia; R06.02 Shortness of breath; R00.1 Bradycardia, unspecified; I25.10 Atherosclerotic heart disease of native coronary artery without angina pectoris; Z86.73 Personal history of transient ischemic attack (TIA), and cerebral infarction without residual deficits; Z95.5 Presence of coronary angioplasty implant and graft; E78.5 Hyperlipidemia, unspecified; I10 Essential (primary) hypertension
CPT/HCPCS: 36415; 71045; 80053; 82550; 82553; 83690; 83880; 84484; 85025; 85610; 85730; 93005; 99283; 99284

== ENCOUNTER → 2020-07-23 16:17 | Outpatient (CLI) | payer MEDICARE, OTHER, SELFPAY ==
--- NOTE | 2020-07-23 | DI.US.S_ITS ---
PROCEDURE: US CAROTID DOPPLER BI INDICATIONS: Transient cerebral ischemic attack, unspecified TECHNIQUE: Color and pulse Doppler interrogation was performed of both carotid systems, with image documentation and velocity measurements. COMPARISON: [facility], , CAROTID ARTERY DOPPLER BIL, 11/02/2016, 10:31. FINDINGS: Stenosis calculations are based on SRU (Society of Radiologists in Ultrasound) criteria. The flow velocities and the arterial waveforms are normal within both carotid arterial systems. A small amount of atherosclerotic plaque can be seen on the left. The estimated degree of internal carotid artery stenosis is less than 50%. Antegrade flow is confirmed within both vertebral arteries. IMPRESSION: No hemodynamically significant stenosis is seen. Dictated by: Deshaun Burris M.D. on 07/23/2020 at 16:45 Approved by: Deshaun Burris M.D. on 07/23/2020 at 16:46
== END ==
PROVIDERS: Family Provider Internal Medicine; PCP Internal Medicine; Referring Provider Internal Medicine; Visit Provider Internal Medicine
DX: G45.9 Transient cerebral ischemic attack, unspecified (principal)
CPT/HCPCS: 93880

== ENCOUNTER → 2020-09-08 11:33 | Outpatient (CLI) | payer MEDICARE, OTHER, SELFPAY ==
[2020-09-08 13:37] LABS: Prostate Specific Antigen 3.21 ng/mL (0.10-4.00)
== END ==
PROVIDERS: Family Provider Internal Medicine; PCP Internal Medicine; Referring Provider Specialist; Visit Provider Specialist
DX: R97.20 Elevated prostate specific antigen [PSA] (principal); N39.0 Urinary tract infection, site not specified; N40.1 Benign prostatic hyperplasia with lower urinary tract symptoms; N13.8 Other obstructive and reflux uropathy
CPT/HCPCS: 36415; 51798; 81002; 84153; 99214

== ENCOUNTER → 2021-03-15 09:57 | Outpatient (CLI) | payer MEDICARE, OTHER, SELFPAY ==
[2021-03-15 12:42] LABS: Prostate Specific Antigen 1.33 ng/mL (0.10-4.00)
== END ==
PROVIDERS: Family Provider Internal Medicine; PCP Internal Medicine; Referring Provider Specialist; Visit Provider Specialist
DX: N13.8 Other obstructive and reflux uropathy (principal); N40.1 Benign prostatic hyperplasia with lower urinary tract symptoms
CPT/HCPCS: 36415; 84153

== ENCOUNTER → 2021-09-20 14:02 | Outpatient (CLI) | payer MEDICARE, OTHER, SELFPAY ==
[2021-09-20 16:42] LABS: Prostate Specific Antigen 1.46 ng/mL (0.10-4.00)
== END ==
PROVIDERS: Family Provider Internal Medicine; PCP Internal Medicine; Referring Provider Specialist; Visit Provider Specialist
DX: N13.8 Other obstructive and reflux uropathy (principal); N40.1 Benign prostatic hyperplasia with lower urinary tract symptoms
CPT/HCPCS: 36415; 84153

== ENCOUNTER → 2021-11-25 15:20 | Outpatient (CLI) | payer MEDICARE, OTHER, SELFPAY ==
[2021-11-25 16:37] LABS: Appearance Urine UA CLEAR; Bilirubin Urine UA NEGATIVE (NEGATIVE); Color Urine UA YELLOW; Glucose Urine UA NEGATIVE (Negative); Ketones Urine UA NEGATIVE (NEGATIVE); Leukocyte Esterase Urine UA NEGATIVE (NEGATIVE); Nitrite Urine UA NEGATIVE (Negative); Occult Blood Urine UA TRACE-INTACT (Negative); Protein Urine UA NEGATIVE (Negative); Specific Gravity Urine UA 1.015 (1.000-1.035); Urobilinogen Urine UA 0.2 E.U./dL (0.2); pH Urine UA 6.5 (4.5-8.0)
[2021-11-25 16:49] LABS: Add Manual Diff / Slide Review NO; Basophils Absolute Auto 0 /uL (0-100); Basophils Percent Auto 0.8 % (0-2); Eosinophils Absolute Auto 0 /uL (0-450); Eosinophils Percent Auto 1.4 % (2-4); Hematocrit 46.6 % (41-53); Hemoglobin 15.8 g/dL (13.5-17.5); Lymphocytes Absolute Auto 800 /uL (1100-4500); Lymphocytes Percent Auto 24.3 % (25-40); Mean Corpuscular HGB Conc 33.9 % (30-36); Mean Corpuscular Hemoglobin 32.6 PG (26-34); Mean Corpuscular Volume 96.2 fL (80-100); Monocytes Absolute Auto 400 /uL (0-900); Monocytes Percent Auto 12.2 % (3-14); Neutrophils Absolute Auto 2100 /uL (1500-7000); Neutrophils Percent Auto 61.3 % (50-75); Platelet Count 150 X10^3/uL (150-400); Red Blood Cell Count 4.84 X10^6/uL (4.5-5.9); Red Cell Distribution Width 13.3 % (11.6-14.8); White Blood Cell Count 3.4 X10^3/uL (4.5-11.0)
[2021-11-25 17:35] LABS: Alanine Aminotransferase 45 IU/L (<50); Albumin 4.8 g/dL (3.5-5.0); Albumin Globulin Ratio 1.7 (1.0-2.8); Alkaline Phosphatase 85 U/L (38-126); Aspartate Aminotransferase 39 IU/L (17-59); BUN Creatinine Ratio 18.4 (6-22); Bilirubin Total 0.9 mg/dL (0.2-1.3); Blood Urea Nitrogen 14 mg/dL (9-20); Calcium 9.3 mg/dL (8.4-10.2); Carbon Dioxide 27 mmol/L (22-32); Chloride 103 mmol/L (98-107); Cholesterol 178 mg/dL (140-199); Estimated Glomerular Filt Rate > 60 mL/min (>60); Globulin 2.8 g/dL (1.7-4.1); Glucose 114 mg/dL (80-110); HDL Cholesterol 90 mg/dL (40-60); HEMOLYSIS < 15 (0-50); LDL Cholesterol Calculated 77 mg/dL (<100); Potassium 3.8 mmol/L (3.4-5.1); Sodium 138 mmol/L (137-145); Total Protein 7.6 g/dL (6.3-8.2); Triglycerides 55 mg/dL (35-150)
[2021-11-25 18:29] LABS: Bacteria Urine None Seen; Culture Indicated Urine Cult Not Indicated; RBC Urine None Seen (0-5/HPF); Squamous Epithelial Cell Urine None Seen (0-5/HPF); WBC Urine None Seen (0-5/HPF)
[2021-11-25 19:01] LABS: Hemoglobin A1C% w Est Avg Glu 6.2 % (4.0-6.0)
== END ==
PROVIDERS: Family Provider Internal Medicine; PCP Internal Medicine; Referring Provider Internal Medicine Endocrinology, Diabetes & Metabolism; Visit Provider Internal Medicine Endocrinology, Diabetes & Metabolism
DX: E78.01 Familial hypercholesterolemia (principal); E74.89 Other specified disorders of carbohydrate metabolism
CPT/HCPCS: 36415; 80053; 80061; 81001; 83036; 85025

== ENCOUNTER → 2022-08-04 09:13 | Outpatient (CLI) | payer MEDICARE, OTHER, SELFPAY ==
[2022-08-04 11:14] LABS: Hemoglobin A1C% w Est Avg Glu 6.4 % (4.0-6.0)
[2022-08-04 11:19] LABS: Alanine Aminotransferase 45 IU/L (<50); Albumin 4.4 g/dL (3.5-5.0); Alkaline Phosphatase 78 U/L (38-126); Aspartate Aminotransferase 41 IU/L (17-59); Blood Urea Nitrogen 20 mg/dL (9-20); Calcium 9.2 mg/dL (8.4-10.2); Carbon Dioxide 29 mmol/L (22-32); Chloride 103 mmol/L (98-107); Cholesterol 150 mg/dL (140-199); Estimated Glomerular Filt Rate > 60 mL/min (>60); Globulin 2.2 g/dL (1.7-4.1); Glucose 103 mg/dL (80-110); HDL Cholesterol 75 mg/dL (40-60); HEMOLYSIS < 15 (0-50); LDL Cholesterol Calculated 65 mg/dL (<100); Potassium 4.3 mmol/L (3.4-5.1); Sodium 138 mmol/L (137-145); Total Protein 6.6 g/dL (6.3-8.2); Triglycerides 49 mg/dL (35-150)
== END ==
PROVIDERS: Family Provider Internal Medicine; PCP Internal Medicine; Referring Provider Internal Medicine; Visit Provider Internal Medicine
DX: R73.02 Impaired glucose tolerance (oral) (principal); E78.2 Mixed hyperlipidemia; I10 Essential (primary) hypertension
CPT/HCPCS: 36415; 80053; 80061; 83036

== ENCOUNTER → 2022-09-15 10:57 | Outpatient (CLI) | payer MEDICARE, OTHER, SELFPAY ==
[2022-09-15 13:25] LABS: Prostate Specific Antigen 1.53 ng/mL (0.10-4.00)
== END ==
PROVIDERS: Family Provider Internal Medicine; PCP Internal Medicine; Referring Provider Specialist; Visit Provider Specialist
DX: N40.1 Benign prostatic hyperplasia with lower urinary tract symptoms (principal); N13.8 Other obstructive and reflux uropathy
CPT/HCPCS: 36415; 84153

== ENCOUNTER → 2022-10-03 10:40 | Outpatient (CLI) | payer MEDICARE, OTHER, SELFPAY ==
[2022-10-03 12:47] LABS: Alanine Aminotransferase 38 IU/L (<50); Albumin 4.2 g/dL (3.5-5.0); Albumin Globulin Ratio 1.8 (1.0-2.8); Alkaline Phosphatase 86 U/L (38-126); Aspartate Aminotransferase 31 IU/L (17-59); BUN Creatinine Ratio 16.7 (6-22); Bilirubin Total 1.1 mg/dL (0.2-1.3); Blood Urea Nitrogen 13 mg/dL (9-20); Calcium 8.9 mg/dL (8.4-10.2); Carbon Dioxide 29 mmol/L (22-32); Chloride 103 mmol/L (98-107); Estimated Glomerular Filt Rate > 60 mL/min (>60); Globulin 2.3 g/dL (1.7-4.1); Glucose 111 mg/dL (80-110); HEMOLYSIS < 15 (0-50); Potassium 4.3 mmol/L (3.4-5.1); Sodium 137 mmol/L (137-145); Total Protein 6.5 g/dL (6.3-8.2)
[2022-10-03 16:41] LABS: Creatinine Urine Random 106.1 mg/dL
[2022-10-03 17:00] LABS: Microalbumin Urine Random < 0.6 mg/dL (0-1.6)
[2022-10-04 03:09] LABS: x Labcorp Estim. Avg Glu (eAG) 134 mg/dL (.); x Labcorp Hemoglobin A1c 6.3 % (4.8-5.6)
== END ==
PROVIDERS: Family Provider Internal Medicine; PCP Internal Medicine; Referring Provider Internal Medicine; Visit Provider Internal Medicine
DX: E11.9 Type 2 diabetes mellitus without complications (principal); I10 Essential (primary) hypertension
CPT/HCPCS: 36415; 80053; 82043; 82570; 83036

== ENCOUNTER → 2023-02-22 14:44 | Outpatient (CLI) | payer MEDICARE, OTHER, SELFPAY ==
--- NOTE | 2023-02-22 14:45 | DI.RAD.S_ITS ---
PROCEDURE: XR ELBOW RT MIN 3V INDICATIONS: fall 7d [employer], eval for effusion/suspect traumatic bursitis TECHNIQUE: 3 views of the elbow were acquired. COMPARISON: None. FINDINGS: Bones: No fractures or dislocations. No suspicious bony lesions. Soft tissues: No elbow joint effusion. No suspicious soft tissue calcifications. No significant soft tissue swelling to suggest bursitis. IMPRESSION: No acute osseous abnormality. If pain persists with conservative management, consider repeat x-ray in 10-14 days or cross-sectional imaging. Dictated by: Igor Olsen M.D. on 02/22/2023 at 15:23 Approved by: Igor Olsen M.D. on 02/22/2023 at 15:24
== END ==
PROVIDERS: Family Provider Internal Medicine; PCP Internal Medicine; Referring Provider Student in an Organized Health Care Education/Training Program; Visit Provider Student in an Organized Health Care Education/Training Program
DX: M25.521 Pain in right elbow (principal)
CPT/HCPCS: 73080

== ENCOUNTER → 2023-04-24 10:18 | Outpatient (CLI) | payer MEDICARE, OTHER, SELFPAY ==
[2023-04-24 11:22] LABS: Alanine Aminotransferase 59 IU/L (<50); Albumin 4.1 g/dL (3.5-5.0); Albumin Globulin Ratio 1.6 (1.0-2.8); Alkaline Phosphatase 72 U/L (38-126); Aspartate Aminotransferase 51 IU/L (17-59); BUN Creatinine Ratio 15.4 (6-22); Bilirubin Total 0.9 mg/dL (0.2-1.3); Blood Urea Nitrogen 10 mg/dL (9-20); Calcium 9.7 mg/dL (8.4-10.2); Carbon Dioxide 27 mmol/L (22-32); Chloride 103 mmol/L (98-107); Cholesterol 138 mg/dL (140-199); Estimated Glomerular Filt Rate > 60 mL/min (>60); Globulin 2.6 g/dL (1.7-4.1); Glucose 109 mg/dL (80-110); HDL Cholesterol 64 mg/dL (40-60); HEMOLYSIS 16 (0-50); Hemoglobin A1C% w Est Avg Glu 6.2 % (4.0-6.0); LDL Cholesterol Calculated 62 mg/dL (<100); Potassium 4.2 mmol/L (3.4-5.1); Sodium 137 mmol/L (137-145); Total Protein 6.7 g/dL (6.3-8.2); Triglycerides 60 mg/dL (35-150)
== END ==
PROVIDERS: Family Provider Internal Medicine; PCP Internal Medicine; Referring Provider Internal Medicine; Visit Provider Internal Medicine
DX: E11.9 Type 2 diabetes mellitus without complications (principal); I10 Essential (primary) hypertension; E78.2 Mixed hyperlipidemia
CPT/HCPCS: 36415; 80053; 80061; 83036

== ENCOUNTER → 2023-08-10 16:03 | Outpatient (CLI) | payer MEDICARE, OTHER, SELFPAY ==
--- NOTE | 2023-08-10 16:05 | DI.RAD.S_ITS ---
PROCEDURE: XR LUMBAR SPINE 2-3V INDICATIONS: low back pain TECHNIQUE: 3 views of the lumbar spine were acquired. COMPARISON: None. FINDINGS: Bones: 5 [id number] vertebrae are present. There is straightening of the normal lumbar lordosis. Multilevel disc height loss, worse at L4-L5 and L5-S1. Prominent anterior osteophyte at. L2-L3. No vertebral body compression fractures. No suspicious bony lesions. Soft tissues: Overlying bowel gas pattern is normal. No suspicious soft tissue calcifications. IMPRESSION: No acute bony abnormality. Multilevel degenerative disc disease, worse at L4-L5 and L5-S1. If symptoms persist with conservative management, consider cross-sectional imaging such as CT or MRI. Approved by: Carrie Duque M.D. on 08/11/2023 at 7:23
== END ==
PROVIDERS: Family Provider Internal Medicine; PCP Internal Medicine; Referring Provider Internal Medicine; Visit Provider Internal Medicine
DX: M51.36 Other intervertebral disc degeneration, lumbar region (principal); M51.37 Other intervertebral disc degeneration, lumbosacral region; M54.50 Low back pain, unspecified
CPT/HCPCS: 72100

== ENCOUNTER → 2023-09-13 11:36 | Outpatient (CLI) | payer MEDICARE, OTHER, SELFPAY ==
[2023-09-13 13:40] LABS: Prostate Specific Antigen 1.75 ng/mL (0.10-4.00)
== END ==
PROVIDERS: Family Provider Internal Medicine; PCP Internal Medicine; Referring Provider Specialist; Visit Provider Specialist
DX: N40.1 Benign prostatic hyperplasia with lower urinary tract symptoms (principal); N13.8 Other obstructive and reflux uropathy
CPT/HCPCS: 36415; 84153

== ENCOUNTER → 2023-10-26 14:10 | Outpatient (CLI) | payer MEDICARE, OTHER, SELFPAY ==
[2023-10-26 20:57] LABS: Microalbumin Urine Random < 0.6 mg/dL (0-1.6)
[2023-10-26 21:00] LABS: Creatinine Urine Random 110.24 mg/dL
[2023-10-26 21:02] LABS: Alanine Aminotransferase 39 IU/L (<50); Albumin 4.6 g/dL (3.5-5.0); Albumin Globulin Ratio 2.1 (1.0-2.8); Alkaline Phosphatase 76 U/L (38-126); Aspartate Aminotransferase 38 IU/L (17-59); BUN Creatinine Ratio 19.2 (6-22); Blood Urea Nitrogen 15 mg/dL (9-20); Calcium 9.1 mg/dL (8.4-10.2); Carbon Dioxide 27 mmol/L (22-32); Chloride 106 mmol/L (98-107); Cholesterol 147 mg/dL (140-199); Estimated Glomerular Filt Rate > 60 mL/min (>60); Globulin 2.2 g/dL (1.7-4.1); Glucose 97 mg/dL (80-110); HDL Cholesterol 79 mg/dL (40-60); HEMOLYSIS < 15 (0-50); LDL Cholesterol Calculated 56 mg/dL (<100); Potassium 4.1 mmol/L (3.4-5.1); Sodium 141 mmol/L (137-145); Total Protein 6.8 g/dL (6.3-8.2); Triglycerides 62 mg/dL (35-150)
== END ==
PROVIDERS: Family Provider Internal Medicine; PCP Internal Medicine; Referring Provider Internal Medicine; Visit Provider Internal Medicine
DX: E11.9 Type 2 diabetes mellitus without complications (principal); I10 Essential (primary) hypertension; E78.2 Mixed hyperlipidemia
CPT/HCPCS: 36415; 80053; 80061; 82043; 82570; 83036

== ENCOUNTER → 2023-10-30 12:53 | Outpatient (CLI) | payer MEDICARE, OTHER, SELFPAY ==
--- NOTE | 2023-10-30 13:59 | DI.RAD.S_ITS ---
PROCEDURE: XR THORACIC SPINE 2V INDICATIONS: Mid thoracic jolting pain, previous T7 fx 1979 TECHNIQUE: Numeral 3 views of the thoracic spine were acquired. COMPARISON: None. FINDINGS: Bones: No acute appearing vertebral body height loss. No traumatic subluxation. Mild overall degenerative changes and bridging osteophytes anterior to the vertebral bodies. Partially seen moderate cervical degenerative changes Cervical thoracic junction is not well seen. Soft tissues: No suspicious calcifications. IMPRESSION: Mild overall thoracic degenerative changes. No acute radiographic abnormality. If there is high concern for further derangement, consider MRI evaluation. Dictated by: Heron Cano M.D. on 10/30/2023 at 16:19 Approved by: Heron Cano M.D. on 10/30/2023 at 16:20
== END ==
LOC: RAD 12:54
PROVIDERS: Family Provider Internal Medicine; PCP Internal Medicine; Referring Provider Physician Assistant Medical; Visit Provider Physician Assistant Medical
DX: M47.814 Spondylosis without myelopathy or radiculopathy, thoracic region (principal); M54.6 Pain in thoracic spine
CPT/HCPCS: 72070

== ENCOUNTER 2023-12-01 11:15 | Outpatient (RCR) | payer MEDICARE, OTHER, SELFPAY ==
--- NOTE | 2023-09-11 15:57 | PT.OIE ---
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) Coronary heart disease Diabetes type 2, controlled Essential hypertension Gastroesophageal reflux disease History of adenomatous polyp of colon History of migraine History of myocardial infarction History of TIA (transient ischemic attack) Impaired glucose tolerance Migraine Mixed hyperlipidemia Primary osteoarthritis involving multiple joints Urinary frequency Past Surgical History (Last Reviewed 02/21/23 @ 16:25 by Comfort Nuñez PA-C) History of angioplasty History of circumcision History of coronary artery stent placement (~1999) History of hernia repair History of testicular surgery Visit Care Team Role Provider Type Zack Iverson MD Family Provider Physician Specialty: Internal Medicine Address: [address] [place] [address], [facility] Email: [email or web address] Rogers Martinez MD Attending Provider Physician Primary Care Provider Referring Provider Specialty: Internal Medicine Address: [address] [place] [address], [address], [place], [facility] Email: [email or web address] Physical Therapy Initial Evaluation PT-OP-A Visit Information Start: 09/11/23 09:44 Freq: Status: Active Protocol: Document 09/11/23 09:45 NM (Rec: 09/11/23 10:34 NM [id number]) Out-Patient Physical Therapy Visit Information Visit Information Visit Type Initial Evaluation Visit Start Time 09:45 Visit Stop Time 10:30 Visit Number 1 Evaluation Information Evaluation Date 09/11/23 Precautions Precautions Hx of thoracic and lumbar stress fractures PT-OP-B Current Condition Start: 09/11/23 09:44 Freq: Status: Active Protocol: Document 09/11/23 09:45 NM (Rec: 09/11/23 10:34 NM [id number]) Current Condition History of Current Condition Onset Date 3 weeks ago Current Complaints pain, decreased activity History of Current Condition Pt presents with low back pain after doing yard work. He was shoveling sand/mulch for 3 hours into a wheelbarrow (to L >R), which over did it. He had immediately increased soreness pain after that day, commonly flared with physical activity now. Reports restricting motions, very easily flared. Pt has hx of stress fracture (T5,7) in spine from from lifting/ carry 75# crate, previous L shoulder injury from fall ( rotator cuff tear) in 2021. Recent lumbar spine imaging reveals no fractures but degenerative disc disease L4-5 and L5-S1. Pt states he has not numbness/tingling, no changes in sensation. Pt reports no falls, but states balance is worsening and he is having balance issues/neuro issues (eyes, ears) Prior Treatments and Tests Previous PT for back pain injuries from (prone extension exercises helpful, traditional PT not helpful) Current Functional Impairments (Reported) Functional Limitations- ADL's just be careful with dressing/shoes Functional Limitations- Mobility/Gait 1/2 hr-1 hr standing, walk 9- 10 blocks (30-45 min) Functional Limitations- Work/School [employer] 1 day/month (lifting, loading) -unable to lift Functional Limitations- Recreation/ yard work: blower/bending to Hobbies pickling 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 work (1 hr) Functional Limitations- Other sit 1.5 hrs in [address] PT-OP-C Subjective Start: 09/11/23 09:44 Freq: Status: Active Protocol: Document 09/11/23 09:45 NM (Rec: 09/11/23 10:34 NM [id number]) OP-PT Subjective Patient Comments Patient Comments see hx above for pt report OP-PT Pain Assessment Location back Pain Location Details mid back, low back, bandlike Intensity 5 Description Aching,Stabbing Description- Other worst: 6/10 Frequency Constant Pain Duration 24-48 hrs Pain Aggravating Factors Activity,Bending,Lifting Other Pain Aggravating Factors sit in car (1.5 hr), twisting, bent over fatigues Pain Alleviating Factors Heat,Medication,Lying Supine, Rest Other Pain Alleviating Factors extension, sleep L side Home Pain Medication Use Pain Medications Used Yes: ibuprofen prn Patient Goal ended 1 week ago PT-OP-E Functional Tests Start: 09/11/23 09:44 Freq: Status: Active Protocol: Document 09/11/23 09:45 NM (Rec: 09/11/23 16:09 NM [id number]) Functional Tests 30 Second Sit to Stand Test Score 20 Comments pain free, valgus, fatiguing , feels pull/stretch Other Forward trunk flexion test Name of Test measured finger to floor Score 4 Comment cued knee ext due to hamstring length, no pain but stretch PT-OP-F Manual Assessment Start: 09/11/23 09:44 Freq: Status: Active Protocol: Document 09/11/23 09:45 NM (Rec: 09/11/23 16:09 NM [id number]) Manual Assessments Soft Tissue Assessment Soft Tissue Mobility Assessment Decreased B hamstring length. Tenderness of B paraspinals, Joint Mobility Assessment Joint Mobility Assessment Decreased lumbar lordosis. Decreased mobility with P-A springing along lumbar and thoracic spine. Midline tenderness at thoracic spine near T7; tenderness slightly lateral to spine at L4-S1. PT-OP-G Mobility & Gait Start: 09/11/23 09:44 Freq: Status: Active Protocol: Document 09/11/23 09:45 NM (Rec: 09/11/23 16:09 NM [id number]) OP Gait Assessment Gait Gait Assistance Required: Independent Distance (Feet) 150 Gait Deviations General Gait Pattern Antalgic,Flexed Trunk Factors Limiting Gait Function Factors Limiting Gait Function Decreased Strength,Pain PT-OP-H Neuro Start: 09/11/23 09:44 Freq: Status: Active Protocol: Document 09/11/23 09:45 NM (Rec: 09/11/23 10:34 NM [id number]) Sensation Evaluation Comments Summary Comments BLE equally intact to light touch sensation Deep Tendon Reflex & Clonus Assessment Deep Tendon Reflex Bilateral Patellar Deep Tendon Reflex 2+ Normal PT-OP-J Posture/Palpation/Skin Start: 09/11/23 09:44 Freq: Status: Active Protocol: Document 09/11/23 09:45 NM (Rec: 09/11/23 16:09 NM [id number]) Posture Evaluation Position Standing Head/C-Spine Posture Forward Head T-Spine Posture Flattened L-Spine Posture Decreased Lordosis Pelvis Posture Posterior Tilted Weight Distribution Balanced Hip Posture (L) Externally Rotated,(R) Externally Rotated Palpation Assessment Location back Palpation Findings Soft Tissue Tightness,Muscle Guarding,Tenderness Palpation Details Tenderness: T7, L4-L5, S1-2. Soft tissue tightness of B paraspinals, QL. Mid-thoracic and lower lumbar spine most tender, demos muscle guarding but no spasms PT-OP-K Range of Motion Start: 09/11/23 09:44 Freq: Status: Active Protocol: Document 09/11/23 09:45 NM (Rec: 09/11/23 10:34 NM [id number]) Lumbar Spine Range of Motion Lumbar Spine Active Percentage Flexion 85 Extension 50 Rotation Left 8 Rotation Right 2 Lateral Flexion Left 75 Lateral Flexion Right 50 ROM Limitations Soft Tissue Tightness Comments soreness with ext, B SB, rotation Hip Goniometric Range of Motion Hip Right Flexion w/Knee Flexed 100 Internal Rotation 25 External Rotation 25 Comments hamstring length 150 deg Left Flexion w/Knee Flexed 100 Internal Rotation 35 External Rotation 20 Comments hamstring length 160 deg Knee Goniometric Range of Motion Knee Right Flexion Active (degrees) 110 Extension Active (degrees) 2 Left Flexion Active (degrees) 110 Extension Active (degrees) 2 PT-OP-L Special Tests Start: 09/11/23 09:44 Freq: Status: Active Protocol: Document 09/11/23 09:45 NM (Rec: 09/11/23 10:34 NM [id number]) Special Tests Lumbar Spine Special Tests Plunkett/Quadrant Test Results + Comments local pain B, no radiation distraction Test Results + Comments reports relief of symptoms Straight Leg Raise Test Results + Comments right Slump Test Results - PT-OP-M Strength Start: 09/11/23 09:44 Freq: Status: Active Protocol: Document 09/11/23 09:45 NM (Rec: 09/11/23 10:34 NM [id number]) Trunk Strength Trunk Manual Muscle Testing Flexion 4+ Good+ Extension 4+ Good+ Rotation Left 4 Good Rotation Right 4 Good Lateral Flexion Left 4 Good Lateral Flexion Right 4 Good Comments Pain with resisted R lateral flexion, B rotation Hip Strength Hip Manual Muscle Testing Right Flexion (L2) 4 Good Extension (S1) 4- Good- Abduction 4- Good- Adduction 4+ Good+ External Rotation 4 Good Internal Rotation 4 Good Left Flexion (L2) 4 Good Extension (S1) 4- Good- Abduction 4- Good- Adduction 4+ Good+ External Rotation 4 Good Internal Rotation 4 Good Knee Strength Knee Manual Muscle Testing Right Flexion (S2) 5 Normal Extension (L3) 5 Normal Left Flexion (S2) 5 Normal Extension (L3) 5 Normal Ankle/Foot Strength Ankle and Foot Manual Muscle Testing Left Dorsiflexion (L4) 4 Good Plantarflexion (S1) 4 Good Right Dorsiflexion (L4) 4 Good Plantarflexion (S1) 4 Good PT-OP-T Assessment and Plan Start: 09/11/23 09:44 Freq: Status: Active Protocol: Document 09/11/23 09:45 NM (Rec: 09/11/23 10:34 NM [id number]) Physical Therapy Assessment Rehab Potential Rehabilitation Potential Good Evaluation Complexity Number of Personal Factors/Comorbidities 1-2 Number of Body Systems Impaired 1-2 Clinical Presentation at Evaluation Stable Impairments Impairments Activity Tolerance,Balance, Functional Activities, Functional Mobility,Gait,Pain, Posture,ROM,Sensation,Soft Tissue Mobility,Strength,Tone Goals Five Impairment HEP Short Term Goal (STG) Pt will report compliance with HEP at least 2-3x/wk in order to maximize progress made during PT sessions. STG Duration 6 weeks [facility] Goal (LTG) Pt will report compliance with HEP at least 3x/wk in order to maintain progress and smoothly transition into independent exercise upon discharge from PT LTG Duration 12 weeks Four Impairment 20 STS in 30 seconds, 20 mat Short Term Goal (STG) Pt will be able to perform at least 10 bilateral squats without compensation and back pain <4/10 in order to demonstrate improved BLE and trunk strength for lifting, ADL, and activity STG Duration 6 weeks Jack Prizer Goal (LTG) Pt will be able to perform >20 sit to stands in 30 seconds without compensation or back pain in order to demonstrate improved BLE and trunk strength for lifting, ADL, and activity LTG Duration 12 weeks Three Impairment strength/stabilization Impairment B lateral flexion/rotation strength 4/5 Short Term Goal (STG) Pt will improve global trunk strength to at least 5/5 in order to demonstrate improved stability and core bracing during ADLs/activity tolerance STG Duration 6 weeks Jack Prizer Goal (LTG) Pt will be able to lift at least 10# from a low surface with good core bracing and body mechanics with back pain <4/10 in order demonstrate improved trunk strength during ADLs/activity tolerance LTG Duration 12 weeks Two Impairment strength Impairment BLE hip strength 4-/5 to 4/5 Short Term Goal (STG) Pt will improve B hip flexion, abduction, and extension strength to at least 4/5 MMT in order to demonstrate increased BLE strength required for gait, ADLs STG Duration 6 weeks Jack Prizer Goal (LTG) Pt will improve B hip flexion, abduction, and extension strength to at least 4+/5 MMT in order to demonstrate increased BLE strength required for gait, ADLs LTG Duration 12 weeks One Impairment oswestry Impairment score 9/50 Short Term Goal (STG) Pt will decrease oswestry score <9/50 points in order to demonstrate improved activity tolerance, pain management, and QOL STG Duration 6 weeks [facility] Goal (LTG) Pt will decrease oswestry score <5/50 points in order to demonstrate improved activity tolerance, pain management, and QOL LTG Duration 12 weeks Assessment Summary Assessment Pt is a 83 y.o. male presenting with back pain beginning several weeks ago after shoveling sand. Recent lumbar radiographs reveal disc degeneration of L4-S1, but no fractures; pt has not had a thoracic spine radiograph recently despite PMH of stress fractures. Pt demos decreased global trunk ROM, particularly into R lateral flexion and R rotation AROM, which are also painful. Pt also demos decreased ability to stabilize trunk against resistance with pain against resisted lateral flexion/ rotation. Upon palpation, pt has tenderness at L4-L5, L5-S1 , and T7; he also had increased muscle tone at B paraspinals. Pt able to perform 20 sit to stands in 30 seconds with reports of stretching feeling. Plunkett/ Quadrant, straight leg raise are positive for reproducing symptoms; relief with distraction and no radiation or other nerve involvement evident at this time. He has decreased lumbar lordosis. Pt would benefit from additional radiographs of thoracic spine due to ALESHIA and PMH of stress fractures. PT discussed exam findings and plan of care with pt; pt verbalizes agreement. Depending on progression with PT, pt will be referred back for additional imaging or further assessment. Pt would benefit from skilled PT for trunk stabilization, progressive BLE strengthening in order to decrease pain symptoms, improve activity tolerance, and improve QOL. Physical Therapy Plan Frequency and Duration Frequency of Treatment 2x/Week Duration of treatment (weeks) 12 Plan of Care Start Date 09/11/23 Plan of Care End Date 12/08/23 Therapeutic Interventions Therapeutic Interventions Aquatic Therapy,Balance Training,Coordination Training ,Gait Training,Home Exercise Program,Joint Mobilizations, Manual Therapy,Neuromuscular Re-education,Orthotic/ Prosthetic Management,Patient/ Caregiver Education,Self-Care/ Home Management,Sensory Integration,Soft Tissue Mobilization,Taping, Therapeutic Activities, Therapeutic Exercises Modalities Biofeedback,Cold Pack/Ice Massage,Electric Stimulation, Hot Packs,Traction- Mechanical ,Ultrasound,Vasopneumatic Devices Other Therapeutic Interventions No thoracic spine mobilizations Other Referrals/Consults Referrals/Consults Recommended Due to pt PMH of thoracic stress fractures, would benefit from additional imaging to clear thoracic spine Next Visit Focus/Plan Next Note Type Treatment Note Next Visit Plan Manual: STM Trial extension-biased vs flexion biased due to previous preference, hip strengthening
--- NOTE | 2023-09-13 12:55 | PT.OTN ---
Current Diagnoses Low back pain, unspecified (09/13/23) Weakness (09/13/23) Physical Therapy Treatment Note PT-OP-A Visit Information Start: 09/11/23 09:44 Freq: Status: Active Protocol: Document 09/13/23 10:33 NM (Rec: 09/13/23 11:18 NM [id number]) Out-Patient Physical Therapy Visit Information Visit Information Visit Type Treatment Note Visit Start Time 10:33 Visit Stop Time 11:15 Visit Number 2 PT-OP-B Current Condition Start: 09/11/23 09:44 Freq: Status: Active Protocol: Document 09/11/23 09:45 NM (Rec: 09/11/23 10:34 NM [id number]) Current Condition History of Current Condition Onset Date 3 weeks ago Current Complaints pain, decreased activity History of Current Condition Pt presents with low back pain after doing yard work. He was shoveling sand/mulch for 3 hours into a wheelbarrow (to L >R), which over did it. He had immediately increased soreness pain after that day, commonly flared with physical activity now. Reports restricting motions, very easily flared. Pt has hx of stress fracture (T5,7) in spine from from lifting/ carry 75# crate, previous L shoulder injury from fall ( rotator cuff tear) in 2021. Recent lumbar spine imaging reveals no fractures but degenerative disc disease L4-5 and L5-S1. Pt states he has not numbness/tingling, no changes in sensation. 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 Pt mowed his lawn yesterday, which also contributes. PT-OP-E Functional Tests Start: 09/11/23 09:44 Freq: Status: Active Protocol: Document 09/11/23 09:45 NM (Rec: 09/11/23 16:09 NM [id number]) Functional Tests 30 Second Sit to Stand Test Score 20 Comments pain free, valgus, fatiguing , feels pull/stretch Other Forward trunk flexion test Name of Test measured finger to floor Score 4 Comment cued knee ext due to hamstring length, no pain but stretch PT-OP-F Manual Assessment Start: 09/11/23 09:44 Freq: Status: Active Protocol: Document 09/11/23 09:45 NM (Rec: 09/11/23 16:09 NM [id number]) Manual Assessments Soft Tissue Assessment Soft Tissue Mobility Assessment Decreased B hamstring length. Tenderness of B paraspinals, Joint Mobility Assessment Joint Mobility Assessment Decreased lumbar lordosis. Decreased mobility with P-A springing along lumbar and thoracic spine. Midline tenderness at thoracic spine near T7; tenderness slightly lateral to spine at L4-S1. PT-OP-G Mobility & Gait Start: 09/11/23 09:44 Freq: Status: Active Protocol: Document 09/11/23 09:45 NM (Rec: 09/11/23 16:09 NM [id number]) OP Gait Assessment Gait Gait Assistance Required: Independent Distance (Feet) 150 Gait Deviations General Gait Pattern Antalgic,Flexed Trunk Factors Limiting Gait Function Factors Limiting Gait Function Decreased Strength,Pain PT-OP-H Neuro Start: 09/11/23 09:44 Freq: Status: Active Protocol: Document 09/11/23 09:45 NM (Rec: 09/11/23 10:34 NM [id number]) Sensation Evaluation Comments Summary Comments BLE equally intact to light touch sensation Deep Tendon Reflex & Clonus Assessment Deep Tendon Reflex Bilateral Patellar Deep Tendon Reflex 2+ Normal PT-OP-J Posture/Palpation/Skin Start: 09/11/23 09:44 Freq: Status: Active Protocol: Document 09/11/23 09:45 NM (Rec: 09/11/23 16:09 NM [id number]) Posture Evaluation Position Standing Head/C-Spine Posture Forward Head T-Spine Posture Flattened L-Spine Posture Decreased Lordosis Pelvis Posture Posterior Tilted Weight Distribution Balanced Hip Posture (L) Externally Rotated,(R) Externally Rotated Palpation Assessment Location back Palpation Findings Soft Tissue Tightness,Muscle Guarding,Tenderness Palpation Details Tenderness: T7, L4-L5, S1-2. Soft tissue tightness of B paraspinals, QL. Mid-thoracic and lower lumbar spine most tender, demos muscle guarding but no spasms PT-OP-K Range of Motion Start: 09/11/23 09:44 Freq: Status: Active Protocol: Document 09/11/23 09:45 NM (Rec: 09/11/23 10:34 NM [id number]) Lumbar Spine Range of Motion Lumbar Spine Active Percentage Flexion 85 Extension 50 Rotation Left 8 Rotation Right 2 Lateral Flexion Left 75 Lateral Flexion Right 50 ROM Limitations Soft Tissue Tightness Comments soreness with ext, B SB, rotation Hip Goniometric Range of Motion Hip Right Flexion w/Knee Flexed 100 Internal Rotation 25 External Rotation 25 Comments hamstring length 150 deg Left Flexion w/Knee Flexed 100 Internal Rotation 35 External Rotation 20 Comments hamstring length 160 deg Knee Goniometric Range of Motion Knee Right Flexion Active (degrees) 110 Extension Active (degrees) 2 Left Flexion Active (degrees) 110 Extension Active (degrees) 2 PT-OP-L Special Tests Start: 09/11/23 09:44 Freq: Status: Active Protocol: Document 09/11/23 09:45 NM (Rec: 09/11/23 10:34 NM [id number]) Special Tests Lumbar Spine Special Tests Plunkett/Quadrant Test Results + Comments local pain B, no radiation distraction Test Results + Comments reports relief of symptoms Straight Leg Raise Test Results + Comments right Slump Test Results - PT-OP-M Strength Start: 09/11/23 09:44 Freq: Status: Active Protocol: Document 09/11/23 09:45 NM (Rec: 09/11/23 10:34 NM [id number]) Trunk Strength Trunk Manual Muscle Testing Flexion 4+ Good+ Extension 4+ Good+ Rotation Left 4 Good Rotation Right 4 Good Lateral Flexion Left 4 Good Lateral Flexion Right 4 Good Comments Pain with resisted R lateral flexion, B rotation Hip Strength Hip Manual Muscle Testing Right Flexion (L2) 4 Good Extension (S1) 4- Good- Abduction 4- Good- Adduction 4+ Good+ External Rotation 4 Good Internal Rotation 4 Good Left Flexion (L2) 4 Good Extension (S1) 4- Good- Abduction 4- Good- Adduction 4+ Good+ External Rotation 4 Good Internal Rotation 4 Good Knee Strength Knee Manual Muscle Testing Right Flexion (S2) 5 Normal Extension (L3) 5 Normal Left Flexion (S2) 5 Normal Extension (L3) 5 Normal Ankle/Foot Strength Ankle and Foot Manual Muscle Testing Left Dorsiflexion (L4) 4 Good Plantarflexion (S1) 4 Good Right Dorsiflexion (L4) 4 Good Plantarflexion (S1) 4 Good PT-OP-Q Treatments Start: 09/11/23 09:44 Freq: Status: Active Protocol: Document 09/13/23 10:33 NM (Rec: 09/13/23 11:18 NM [id number]) Therapeutic Exercises Supine Exercises bridge Side bilateral Reps/Minutes 2x10 Comments cued full range, glute activation; breathing; pain free in low back TrA activation Supine Exercise Name 1. activation with breathing, 2. LTR, 3. uni march Equipment Used PT cueing at abdominals Reps/Minutes 1. 1x10 with 2 breath hold, 2. 1x15 ea, 3. 2x10 ea Comments pain free; cued for core stability, form, slower control; LTR relaxing Prone Exercises prone on elbows Prone Exercise Name trialed in PT Side bilateral Reps/Minutes 60 Comments reports stretch, 1 brief instance of sharp pain; not tolerated so d/c Sitting Exercises pelvic tilts Sitting Exercise Name added to HEP: anterior pelvic tilt <> neutral spine Side bilateral Reps/Minutes 2x10 with 2sec hold Comments breathes; pain free, feels good stretch in back hip abduction Sitting Exercise Name added to HEP Side bilateral Resistance lvl 3 green tb around thighs Reps/Minutes 2x10 with 5 hold Comments pain free Therapeutic Activity Therapeutic Activity EOB transfers Reps/Minutes 2 reps Comments Cued for dropping legs off EOB together prior to lifting trunk. Educated on keeping BLE together vs segmental motions to limit low back pain with transfers on/off plinth. Pain free after education, pt demonstration sit to stand Reps/Minutes 1x10 Comments with ant pelvic tilt, hip hinge Cued for hip abduction to limit knee valgus, fwd reach for anterior weight shift and eccentric control to mesh chair. Pt improved with reps, able to maintain neutral spine and reports pain free with less UE assistance for hands log roll Reps/Minutes 2 reps to L side Comments to reduce low back pain Cued to prevent segmental rolling of BLE/trunk. Educated on keeping BLE together to prevent twisting at spine Manual Therapy Treatment Soft Tissue Mobilization lumbar spine Body Location paraspinals Mobilization Type Oscillations,Rolling,Strumming Intensity/Depth Moderate Body Position Sidelying Comments L Sidelying with pillow between thighs. Increased tightness of R lower lumbar paraspinals, QL compared to L side. Improved with rolling, oscillations, strumming. Avoided thoracic spine, lumbar midline spine. Tenderness reported above R PSIS/iliac crest with mobilization, but reports improvement soreness levels post STM Self-Care/Home Management Treatment Education Patient Education Home Exercise Program Other Education HEP: bridge, A/P tilt, seated hip abduction with band ( issued band). Educated on HEP PT-OP-T Assessment and Plan Start: 09/11/23 09:44 Freq: Status: Active Protocol: Document 09/13/23 10:33 NM (Rec: 09/13/23 11:18 NM [id number]) Physical Therapy Assessment Goals Five Impairment HEP Short Term Goal (STG) Pt will report compliance with HEP at least 2-3x/wk in order to maximize progress made during PT sessions. STG Duration 6 weeks Photo Stylist Goal (LTG) Pt will report compliance with HEP at least 3x/wk in order to maintain progress and smoothly transition into independent exercise upon discharge from PT LTG Duration 12 weeks Four Impairment 20 STS in 30 seconds, 20 mat Short Term Goal (STG) Pt will be able to perform at least 10 bilateral squats without compensation and back pain <4/10 in order to demonstrate improved BLE and trunk strength for lifting, ADL, and activity STG Duration 6 weeks Detention Goal (LTG) Pt will be able to perform >20 sit to stands in 30 seconds without compensation or back pain in order to demonstrate improved BLE and trunk strength for lifting, ADL, and activity LTG Duration 12 weeks Three Impairment strength/stabilization Impairment B lateral flexion/rotation strength 4/5 Short Term Goal (STG) Pt will improve global trunk strength to at least 5/5 in order to demonstrate improved stability and core bracing during ADLs/activity tolerance STG Duration 6 weeks Photo Stylist Goal (LTG) Pt will be able to lift at least 10# from a low surface with good core bracing and body mechanics with back pain <4/10 in order demonstrate improved trunk strength during ADLs/activity tolerance LTG Duration 12 weeks Two Impairment strength Impairment BLE hip strength 4-/5 to 4/5 Short Term Goal (STG) Pt will improve B hip flexion, abduction, and extension strength to at least 4/5 MMT in order to demonstrate increased BLE strength required for gait, ADLs STG Duration 6 weeks Detention Goal (LTG) Pt will improve B hip flexion, abduction, and extension strength to at least 4+/5 MMT in order to demonstrate increased BLE strength required for gait, ADLs LTG Duration 12 weeks One Impairment oswestry Impairment score 9/50 Short Term Goal (STG) Pt will decrease oswestry score <9/50 points in order to demonstrate improved activity tolerance, pain management, and QOL STG Duration 6 weeks Photo Stylist Goal (LTG) Pt will decrease oswestry score <5/50 points in order to demonstrate improved activity tolerance, pain management, and QOL LTG Duration 12 weeks Assessment Summary Assessment Pt tolerated session well and reports good workout but no increase in symptoms or soreness. Initiated flexion biased treatment today. Pt does not tolerate extension based strengthening at this time due to mid back pain. Due to tendency for posterior pelvic tilt and decreased lordosis, initiated anterior pelvic tilt for spinal/pelvic mobility. Pain free with all motions compared to IE. Education and training in body mechanics during STS, transfers in/out of bed, log roll. Pt would benefit from skilled PT for lumbar/core stabilization and BLE strengthening in order to improve activity tolerance and decrease pain levels. Physical Therapy Plan Frequency and Duration Frequency of Treatment 2x/Week Duration of treatment (weeks) 12 Plan of Care Start Date 09/11/23 Plan of Care End Date 12/08/23 Therapeutic Interventions Therapeutic Interventions Aquatic Therapy,Balance Training,Coordination Training ,Gait Training,Home Exercise Program,Joint Mobilizations, Manual Therapy,Neuromuscular Re-education,Orthotic/ Prosthetic Management,Patient/ Caregiver Education,Self-Care/ Home Management,Sensory Integration,Soft Tissue Mobilization,Taping, Therapeutic Activities, Therapeutic Exercises Modalities Biofeedback,Cold Pack/Ice Massage,Electric Stimulation, Hot Packs,Traction- Mechanical ,Ultrasound,Vasopneumatic Devices Other Therapeutic Interventions No thoracic spine mobilizations Other Referrals/Consults Referrals/Consults Recommended Due to pt PMH of thoracic stress fractures, would benefit from additional imaging to clear thoracic spine Next Visit Focus/Plan Next Note Type Treatment Note Next Visit Plan Next session: assess HS length , log roll, hip hinge, flexion biased core strengthening ( trial pallof press- no rotation), trial bird dog with support vs dying bug, hip abduction/extension/quad strength Manual: STM POC: progress into flexion bias for core/lumbar strengthening, hip strengthening
--- NOTE | 2023-09-18 12:16 | PT.OTN ---
Current Diagnoses Low back pain, unspecified (09/18/23) Weakness (09/18/23) Physical Therapy Treatment Note PT-OP-A Visit Information Start: 09/11/23 09:44 Freq: Status: Active Protocol: Document 09/18/23 08:07 AB (Rec: 09/18/23 12:15 AB [id number]) Out-Patient Physical Therapy Visit Information Visit Information Visit Type Treatment Note Visit Note Access Code: [email or web address] Visit Start Time 09:48 Visit Stop Time 10:33 Visit Number 3 Number of LAND LEASE INFORMATION CLERK Visits 1 Evaluation Information Evaluation Date 09/11/23 Precautions Precautions Hx of thoracic and lumbar stress fractures PT-OP-B Current Condition Start: 09/11/23 09:44 Freq: Status: Active Protocol: Document 09/11/23 09:45 NM (Rec: 09/11/23 10:34 NM [id number]) Current Condition History of Current Condition Onset Date 3 weeks ago Current Complaints pain, decreased activity History of Current Condition Pt presents with low back pain after doing yard work. He was shoveling sand/mulch for 3 hours into a wheelbarrow (to L >R), which over did it. He had immediately increased soreness pain after that day, commonly flared with physical activity now. Reports restricting motions, very easily flared. Pt has hx of stress fracture (T5,7) in spine from from lifting/ carry 75# crate, previous L shoulder injury from fall ( rotator cuff tear) in 2021. Recent lumbar spine imaging reveals no fractures but degenerative disc disease L4-5 and L5-S1. Pt states he has not numbness/tingling, no changes in sensation. 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 Patient reports having pain thoracic area( lower comments 7-8 per patient . Patient reports the pain is sudden and sharp which is about the same as it was the previous session. Increased stiffnes observed AROM knee extension from 90/90 position in hooklying bilaterally. PT-OP-E Functional Tests Start: 09/11/23 09:44 Freq: Status: Active Protocol: Document 09/11/23 09:45 NM (Rec: 09/11/23 16:09 NM [id number]) Functional Tests 30 Second Sit to Stand Test Score 20 Comments pain free, valgus, fatiguing , feels pull/stretch Other Forward trunk flexion test Name of Test measured finger to floor Score 4 Comment cued knee ext due to hamstring length, no pain but stretch PT-OP-F Manual Assessment Start: 09/11/23 09:44 Freq: Status: Active Protocol: Document 09/11/23 09:45 NM (Rec: 09/11/23 16:09 NM [id number]) Manual Assessments Soft Tissue Assessment Soft Tissue Mobility Assessment Decreased B hamstring length. Tenderness of B paraspinals, Joint Mobility Assessment Joint Mobility Assessment Decreased lumbar lordosis. Decreased mobility with P-A springing along lumbar and thoracic spine. Midline tenderness at thoracic spine near T7; tenderness slightly lateral to spine at L4-S1. PT-OP-G Mobility & Gait Start: 09/11/23 09:44 Freq: Status: Active Protocol: Document 09/11/23 09:45 NM (Rec: 09/11/23 16:09 NM [id number]) OP Gait Assessment Gait Gait Assistance Required: Independent Distance (Feet) 150 Gait Deviations General Gait Pattern Antalgic,Flexed Trunk Factors Limiting Gait Function Factors Limiting Gait Function Decreased Strength,Pain PT-OP-H Neuro Start: 09/11/23 09:44 Freq: Status: Active Protocol: Document 09/11/23 09:45 NM (Rec: 09/11/23 10:34 NM [id number]) Sensation Evaluation Comments Summary Comments BLE equally intact to light touch sensation Deep Tendon Reflex & Clonus Assessment Deep Tendon Reflex Bilateral Patellar Deep Tendon Reflex 2+ Normal PT-OP-J Posture/Palpation/Skin Start: 09/11/23 09:44 Freq: Status: Active Protocol: Document 09/11/23 09:45 NM (Rec: 09/11/23 16:09 NM [id number]) Posture Evaluation Position Standing Head/C-Spine Posture Forward Head T-Spine Posture Flattened L-Spine Posture Decreased Lordosis Pelvis Posture Posterior Tilted Weight Distribution Balanced Hip Posture (L) Externally Rotated,(R) Externally Rotated Palpation Assessment Location back Palpation Findings Soft Tissue Tightness,Muscle Guarding,Tenderness Palpation Details Tenderness: T7, L4-L5, S1-2. Soft tissue tightness of B paraspinals, QL. Mid-thoracic and lower lumbar spine most tender, demos muscle guarding but no spasms PT-OP-K Range of Motion Start: 09/11/23 09:44 Freq: Status: Active Protocol: Document 09/11/23 09:45 NM (Rec: 09/11/23 10:34 NM [id number]) Lumbar Spine Range of Motion Lumbar Spine Active Percentage Flexion 85 Extension 50 Rotation Left 8 Rotation Right 2 Lateral Flexion Left 75 Lateral Flexion Right 50 ROM Limitations Soft Tissue Tightness Comments soreness with ext, B SB, rotation Hip Goniometric Range of Motion Hip Right Flexion w/Knee Flexed 100 Internal Rotation 25 External Rotation 25 Comments hamstring length 150 deg Left Flexion w/Knee Flexed 100 Internal Rotation 35 External Rotation 20 Comments hamstring length 160 deg Knee Goniometric Range of Motion Knee Right Flexion Active (degrees) 110 Extension Active (degrees) 2 Left Flexion Active (degrees) 110 Extension Active (degrees) 2 PT-OP-L Special Tests Start: 09/11/23 09:44 Freq: Status: Active Protocol: Document 09/11/23 09:45 NM (Rec: 09/11/23 10:34 NM [id number]) Special Tests Lumbar Spine Special Tests Plunkett/Quadrant Test Results + Comments local pain B, no radiation distraction Test Results + Comments reports relief of symptoms Straight Leg Raise Test Results + Comments right Slump Test Results - PT-OP-M Strength Start: 09/11/23 09:44 Freq: Status: Active Protocol: Document 09/11/23 09:45 NM (Rec: 09/11/23 10:34 NM [id number]) Trunk Strength Trunk Manual Muscle Testing Flexion 4+ Good+ Extension 4+ Good+ Rotation Left 4 Good Rotation Right 4 Good Lateral Flexion Left 4 Good Lateral Flexion Right 4 Good Comments Pain with resisted R lateral flexion, B rotation Hip Strength Hip Manual Muscle Testing Right Flexion (L2) 4 Good Extension (S1) 4- Good- Abduction 4- Good- Adduction 4+ Good+ External Rotation 4 Good Internal Rotation 4 Good Left Flexion (L2) 4 Good Extension (S1) 4- Good- Abduction 4- Good- Adduction 4+ Good+ External Rotation 4 Good Internal Rotation 4 Good Knee Strength Knee Manual Muscle Testing Right Flexion (S2) 5 Normal Extension (L3) 5 Normal Left Flexion (S2) 5 Normal Extension (L3) 5 Normal Ankle/Foot Strength Ankle and Foot Manual Muscle Testing Left Dorsiflexion (L4) 4 Good Plantarflexion (S1) 4 Good Right Dorsiflexion (L4) 4 Good Plantarflexion (S1) 4 Good PT-OP-Q Treatments Start: 09/11/23 09:44 Freq: Status: Active Protocol: Document 09/18/23 08:07 AB (Rec: 09/18/23 12:15 AB [id number]) Therapeutic Exercises Supine Exercises hamstring stretch from hooklying Reps/Minutes X2 each LE 60 seconds each Sitting Exercises hip abduction Sitting Exercise Name added to HEP Side bilateral Resistance lvl 3 green tb around thighs Reps/Minutes 1x10 with and 2 one min holds one with level 2 band Comments pain free Therapeutic Activity Therapeutic Activity sleep positioning Comments Patient ed to place pillow under UE and LE when in sidelying to decrease forces on thoracic spine log roll Reps/Minutes multiple trials left and right side Comments Verbal cues to bend knees prior to attempting log roll, to keep hip and shoulder aligned, to scoot back in sitting prior to sit to sidelying and for timing for supine to sit. Manual Therapy Treatment Soft Tissue Mobilization lumbar spine Body Location paraspinals Mobilization Type Sustained Pressure Intensity/Depth Moderate Body Position Sidelying Comments L Sidelying with pillow between thighs. Taping thoracic and lumbar Body Location for pain and posture Type of Tape Kinesio Tape Skin Inspection WNL Comments Patient ed to remove tape in 3 -5 days or immediately if skin irritation occurs. PT-OP-T Assessment and Plan Start: 09/11/23 09:44 Freq: Status: Active Protocol: Document 09/18/23 08:07 AB (Rec: 04/08/24 12:15 AB [id number]) Physical Therapy Assessment Goals Five Impairment HEP Short Term Goal (STG) Pt will report compliance with HEP at least 2-3x/wk in order to maximize progress made during PT sessions. STG Duration 6 weeks [employer] Manager Goal (LTG) Pt will report compliance with HEP at least 3x/wk in order to maintain progress and smoothly transition into independent exercise upon discharge from PT LTG Duration 12 weeks Four Impairment 20 STS in 30 seconds, 20 mat Short Term Goal (STG) Pt will be able to perform at least 10 bilateral squats without compensation and back pain <4/10 in order to demonstrate improved BLE and trunk strength for lifting, ADL, and activity STG Duration 6 weeks [employer] Manager Goal (LTG) Pt will be able to perform >20 sit to stands in 30 seconds without compensation or back pain in order to demonstrate improved BLE and trunk strength for lifting, ADL, and activity LTG Duration 12 weeks Three Impairment strength/stabilization Impairment B lateral flexion/rotation strength 4/5 Short Term Goal (STG) Pt will improve global trunk strength to at least 5/5 in order to demonstrate improved stability and core bracing during ADLs/activity tolerance STG Duration 6 weeks Fdc Goal (LTG) Pt will be able to lift at least 10# from a low surface with good core bracing and body mechanics with back pain <4/10 in order demonstrate improved trunk strength during ADLs/activity tolerance LTG Duration 12 weeks Two Impairment strength Impairment BLE hip strength 4-/5 to 4/5 Short Term Goal (STG) Pt will improve B hip flexion, abduction, and extension strength to at least 4/5 MMT in order to demonstrate increased BLE strength required for gait, ADLs STG Duration 6 weeks Fdc Goal (LTG) Pt will improve B hip flexion, abduction, and extension strength to at least 4+/5 MMT in order to demonstrate increased BLE strength required for gait, ADLs LTG Duration 12 weeks One Impairment oswestry Impairment score 9/50 Short Term Goal (STG) Pt will decrease oswestry score <9/50 points in order to demonstrate improved activity tolerance, pain management, and QOL STG Duration 6 weeks [employer] Manager Goal (LTG) Pt will decrease oswestry score <5/50 points in order to demonstrate improved activity tolerance, pain management, and QOL LTG Duration 12 weeks Assessment Summary Assessment Patient reports feeling sore like he got a work out this session Physical Therapy Plan Frequency and Duration Frequency of Treatment 2x/Week Duration of treatment (weeks) 12 Plan of Care Start Date 09/11/23 Plan of Care End Date 12/08/23 Next Visit Focus/Plan Next Note Type Treatment Note Next Visit Plan Next session: review log roll, hip hinge, flexion biased core strengthening (trial pallof press- no rotation), trial bird dog with support vs dying bug, hip abduction/ extension/quad strength Manual: STM POC: progress into flexion bias for core/lumbar strengthening, hip strengthening
--- NOTE | 2023-09-20 10:52 | PT.OTN ---
Current Diagnoses Low back pain, unspecified (09/20/23) Weakness (09/20/23) Physical Therapy Treatment Note PT-OP-A Visit Information Start: 09/11/23 09:44 Freq: Status: Active Protocol: Document 09/20/23 08:01 AB (Rec: 09/20/23 10:51 AB [id number]) Out-Patient Physical Therapy Visit Information Visit Information Visit Type Treatment Note Visit Note Access Code: [email or web address] Visit Start Time 09:47 Visit Stop Time 10:34 Visit Number 4 Number of ELECTRIC HOIST OPERATOR Visits 2 Evaluation Information Evaluation Date 09/11/23 Precautions Precautions Hx of thoracic and lumbar stress fractures PT-OP-B Current Condition Start: 09/11/23 09:44 Freq: Status: Active Protocol: Document 09/11/23 09:45 NM (Rec: 09/11/23 10:34 NM [id number]) Current Condition History of Current Condition Onset Date 3 weeks ago Current Complaints pain, decreased activity History of Current Condition Pt presents with low back pain after doing yard work. He was shoveling sand/mulch for 3 hours into a wheelbarrow (to L >R), which over did it. He had immediately increased soreness pain after that day, commonly flared with physical activity now. Reports restricting motions, very easily flared. Pt has hx of stress fracture (T5,7) in spine from from lifting/ carry 75# crate, previous L shoulder injury from fall ( rotator cuff tear) in 2021. Recent lumbar spine imaging reveals no fractures but degenerative disc disease L4-5 and L5-S1. Pt states he has not numbness/tingling, no changes in sensation. 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 Patient reports he was walking on and off 5 hours, Monday with no increased pain until he shoved a bookcase. Patient reports having fatigue soreness as if the muscles in the back have been worked. PT-OP-E Functional Tests Start: 09/11/23 09:44 Freq: Status: Active Protocol: Document 09/11/23 09:45 NM (Rec: 09/11/23 16:09 NM [id number]) Functional Tests 30 Second Sit to Stand Test Score 20 Comments pain free, valgus, fatiguing , feels pull/stretch Other Forward trunk flexion test Name of Test measured finger to floor Score 4 Comment cued knee ext due to hamstring length, no pain but stretch PT-OP-F Manual Assessment Start: 09/11/23 09:44 Freq: Status: Active Protocol: Document 09/11/23 09:45 NM (Rec: 09/11/23 16:09 NM [id number]) Manual Assessments Soft Tissue Assessment Soft Tissue Mobility Assessment Decreased B hamstring length. Tenderness of B paraspinals, Joint Mobility Assessment Joint Mobility Assessment Decreased lumbar lordosis. Decreased mobility with P-A springing along lumbar and thoracic spine. Midline tenderness at thoracic spine near T7; tenderness slightly lateral to spine at L4-S1. PT-OP-G Mobility & Gait Start: 09/11/23 09:44 Freq: Status: Active Protocol: Document 09/11/23 09:45 NM (Rec: 09/11/23 16:09 NM [id number]) OP Gait Assessment Gait Gait Assistance Required: Independent Distance (Feet) 150 Gait Deviations General Gait Pattern Antalgic,Flexed Trunk Factors Limiting Gait Function Factors Limiting Gait Function Decreased Strength,Pain PT-OP-H Neuro Start: 09/11/23 09:44 Freq: Status: Active Protocol: Document 09/11/23 09:45 NM (Rec: 09/11/23 10:34 NM [id number]) Sensation Evaluation Comments Summary Comments BLE equally intact to light touch sensation Deep Tendon Reflex & Clonus Assessment Deep Tendon Reflex Bilateral Patellar Deep Tendon Reflex 2+ Normal PT-OP-J Posture/Palpation/Skin Start: 09/11/23 09:44 Freq: Status: Active Protocol: Document 09/11/23 09:45 NM (Rec: 09/11/23 16:09 NM [id number]) Posture Evaluation Position Standing Head/C-Spine Posture Forward Head T-Spine Posture Flattened L-Spine Posture Decreased Lordosis Pelvis Posture Posterior Tilted Weight Distribution Balanced Hip Posture (L) Externally Rotated,(R) Externally Rotated Palpation Assessment Location back Palpation Findings Soft Tissue Tightness,Muscle Guarding,Tenderness Palpation Details Tenderness: T7, L4-L5, S1-2. Soft tissue tightness of B paraspinals, QL. Mid-thoracic and lower lumbar spine most tender, demos muscle guarding but no spasms PT-OP-K Range of Motion Start: 09/11/23 09:44 Freq: Status: Active Protocol: Document 09/11/23 09:45 NM (Rec: 09/11/23 10:34 NM [id number]) Lumbar Spine Range of Motion Lumbar Spine Active Percentage Flexion 85 Extension 50 Rotation Left 8 Rotation Right 2 Lateral Flexion Left 75 Lateral Flexion Right 50 ROM Limitations Soft Tissue Tightness Comments soreness with ext, B SB, rotation Hip Goniometric Range of Motion Hip Right Flexion w/Knee Flexed 100 Internal Rotation 25 External Rotation 25 Comments hamstring length 150 deg Left Flexion w/Knee Flexed 100 Internal Rotation 35 External Rotation 20 Comments hamstring length 160 deg Knee Goniometric Range of Motion Knee Right Flexion Active (degrees) 110 Extension Active (degrees) 2 Left Flexion Active (degrees) 110 Extension Active (degrees) 2 PT-OP-L Special Tests Start: 09/11/23 09:44 Freq: Status: Active Protocol: Document 09/11/23 09:45 NM (Rec: 09/11/23 10:34 NM [id number]) Special Tests Lumbar Spine Special Tests Plunkett/Quadrant Test Results + Comments local pain B, no radiation distraction Test Results + Comments reports relief of symptoms Straight Leg Raise Test Results + Comments right Slump Test Results - PT-OP-M Strength Start: 09/11/23 09:44 Freq: Status: Active Protocol: Document 09/11/23 09:45 NM (Rec: 09/11/23 10:34 NM [id number]) Trunk Strength Trunk Manual Muscle Testing Flexion 4+ Good+ Extension 4+ Good+ Rotation Left 4 Good Rotation Right 4 Good Lateral Flexion Left 4 Good Lateral Flexion Right 4 Good Comments Pain with resisted R lateral flexion, B rotation Hip Strength Hip Manual Muscle Testing Right Flexion (L2) 4 Good Extension (S1) 4- Good- Abduction 4- Good- Adduction 4+ Good+ External Rotation 4 Good Internal Rotation 4 Good Left Flexion (L2) 4 Good Extension (S1) 4- Good- Abduction 4- Good- Adduction 4+ Good+ External Rotation 4 Good Internal Rotation 4 Good Knee Strength Knee Manual Muscle Testing Right Flexion (S2) 5 Normal Extension (L3) 5 Normal Left Flexion (S2) 5 Normal Extension (L3) 5 Normal Ankle/Foot Strength Ankle and Foot Manual Muscle Testing Left Dorsiflexion (L4) 4 Good Plantarflexion (S1) 4 Good Right Dorsiflexion (L4) 4 Good Plantarflexion (S1) 4 Good PT-OP-Q Treatments Start: 09/11/23 09:44 Freq: Status: Active Protocol: Document 09/20/23 08:01 AB (Rec: 09/20/23 10:51 AB [id number]) Therapeutic Exercises Supine Exercises breathing from diaphragm in modified restorative pose Reps/Minutes 3 min Comments Pt ed use of self tactile cues bug Reps/Minutes X3-4 Comments Increased difficulty coordinating the pattern, in spite of verbal, vis& tac abdominal bracing with LE extension Supine Exercise Name from hooklying Side bilateral Reps/Minutes X10 Comments verbal cues to brace as LE is extended Standing Exercises counter plank bird dog Side bilateral Reps/Minutes X10 Comments VC to initiate one extremity at a time and brace with abdominal muscles Pallof press Resistance level one band Reps/Minutes 20X2 each direction Other Exercises quadruped bird dog Reps/Minutes X4 Comments unable to coordinate pattern, in spite of verbal, visual and tactile cues Manual Therapy Treatment Soft Tissue Mobilization lumbar spine Body Location paraspinals bilateral Mobilization Type Sustained Pressure Intensity/Depth Moderate Body Position Sidelying Comments L Sidelying with pillow between thighs. Taping thoracic and lumbar Comments Tape (from previous session) removed at patient's request. Self-Care/Home Management Treatment Activities Self-Care/Home Management Activities counter plank bird dog, abdominal bracing with LE extension, Pallof press with level one band, and breathing while in modified restorative pose added to HEP PT-OP-T Assessment and Plan Start: 09/11/23 09:44 Freq: Status: Active Protocol: Document 09/20/23 08:01 AB (Rec: 09/20/23 10:51 AB [id number]) Physical Therapy Assessment Goals Five Impairment HEP Short Term Goal (STG) Pt will report compliance with HEP at least 2-3x/wk in order to maximize progress made during PT sessions. STG Duration 6 weeks Mcc Goal (LTG) Pt will report compliance with HEP at least 3x/wk in order to maintain progress and smoothly transition into independent exercise upon discharge from PT LTG Duration 12 weeks Four Impairment 20 STS in 30 seconds, 20 mat Short Term Goal (STG) Pt will be able to perform at least 10 bilateral squats without compensation and back pain <4/10 in order to demonstrate improved BLE and trunk strength for lifting, ADL, and activity STG Duration 6 weeks Mcc Goal (LTG) Pt will be able to perform >20 sit to stands in 30 seconds without compensation or back pain in order to demonstrate improved BLE and trunk strength for lifting, ADL, and activity LTG Duration 12 weeks Three Impairment strength/stabilization Impairment B lateral flexion/rotation strength 4/5 Short Term Goal (STG) Pt will improve global trunk strength to at least 5/5 in order to demonstrate improved stability and core bracing during ADLs/activity tolerance STG Duration 6 weeks Mcc Goal (LTG) Pt will be able to lift at least 10# from a low surface with good core bracing and body mechanics with back pain <4/10 in order demonstrate improved trunk strength during ADLs/activity tolerance LTG Duration 12 weeks Two Impairment strength Impairment BLE hip strength 4-/5 to 4/5 Short Term Goal (STG) Pt will improve B hip flexion, abduction, and extension strength to at least 4/5 MMT in order to demonstrate increased BLE strength required for gait, ADLs STG Duration 6 weeks Proofer Prepress Goal (LTG) Pt will improve B hip flexion, abduction, and extension strength to at least 4+/5 MMT in order to demonstrate increased BLE strength required for gait, ADLs LTG Duration 12 weeks One Impairment oswestry Impairment score 9/50 Short Term Goal (STG) Pt will decrease oswestry score <9/50 points in order to demonstrate improved activity tolerance, pain management, and QOL STG Duration 6 weeks Mcc Goal (LTG) Pt will decrease oswestry score <5/50 points in order to demonstrate improved activity tolerance, pain management, and QOL LTG Duration 12 weeks Assessment Summary Assessment Patient reports having no pain end of session, feels like he did exercise. Physical Therapy Plan Frequency and Duration Frequency of Treatment 2x/Week Duration of treatment (weeks) 12 Plan of Care Start Date 09/11/23 Plan of Care End Date 12/08/23 Next Visit Focus/Plan Next Note Type Treatment Note Next Visit Plan Next session: review hip hinge/possibly add squat/sit to stand to HEP, flexion biased core strengthening ( trial pallof press- no rotation), revist bird dog with support vs dying bug, review modifed bird dog/abd bracing with LE extension if unable to progress to bird dog and bug, hip abduction/ extension/quad strength Manual: STM POC: progress into flexion bias for core/lumbar strengthening, hip strengthening
--- NOTE | 2023-09-29 12:52 | PT.OTN ---
Current Diagnoses Low back pain, unspecified (09/29/23) Weakness (09/29/23) Physical Therapy Treatment Note PT-OP-A Visit Information Start: 09/11/23 09:44 Freq: Status: Active Protocol: Document 09/29/23 11:19 NM (Rec: 09/29/23 12:06 NM [id number]) Out-Patient Physical Therapy Visit Information Visit Information Visit Type Treatment Note Visit Start Time 11:19 Visit Stop Time 12:00 Visit Number 5 Evaluation Information Evaluation Date 09/11/23 PT-OP-B Current Condition Start: 09/11/23 09:44 Freq: Status: Active Protocol: Document 09/11/23 09:45 NM (Rec: 09/11/23 10:34 NM [id number]) Current Condition History of Current Condition Onset Date 3 weeks ago Current Complaints pain, decreased activity History of Current Condition Pt presents with low back pain after doing yard work. He was shoveling sand/mulch for 3 hours into a wheelbarrow (to L >R), which over did it. He had immediately increased soreness pain after that day, commonly flared with physical activity now. Reports restricting motions, very easily flared. Pt has hx of stress fracture (T5,7) in spine from from lifting/ carry 75# crate, previous L shoulder injury from fall ( rotator cuff tear) in 2021. Recent lumbar spine imaging reveals no fractures but degenerative disc disease L4-5 and L5-S1. Pt states he has not numbness/tingling, no changes in sensation. 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 States that he was edging his yard on Monday, which aggravated his back. Currently has mid back pain and soft tissue soreness. Reports sensitive to re- aggravation. Pt states improving still since IE, able to do squat and use legs/hip if centered PT-OP-E Functional Tests Start: 09/11/23 09:44 Freq: Status: Active Protocol: Document 09/11/23 09:45 NM (Rec: 09/11/23 16:09 NM [id number]) Functional Tests 30 Second Sit to Stand Test Score 20 Comments pain free, valgus, fatiguing , feels pull/stretch Other Forward trunk flexion test Name of Test measured finger to floor Score 4 Comment cued knee ext due to hamstring length, no pain but stretch PT-OP-F Manual Assessment Start: 09/11/23 09:44 Freq: Status: Active Protocol: Document 09/11/23 09:45 NM (Rec: 09/11/23 16:09 NM [id number]) Manual Assessments Soft Tissue Assessment Soft Tissue Mobility Assessment Decreased B hamstring length. Tenderness of B paraspinals, Joint Mobility Assessment Joint Mobility Assessment Decreased lumbar lordosis. Decreased mobility with P-A springing along lumbar and thoracic spine. Midline tenderness at thoracic spine near T7; tenderness slightly lateral to spine at L4-S1. PT-OP-G Mobility & Gait Start: 09/11/23 09:44 Freq: Status: Active Protocol: Document 09/11/23 09:45 NM (Rec: 09/11/23 16:09 NM [id number]) OP Gait Assessment Gait Gait Assistance Required: Independent Distance (Feet) 150 Gait Deviations General Gait Pattern Antalgic,Flexed Trunk Factors Limiting Gait Function Factors Limiting Gait Function Decreased Strength,Pain PT-OP-H Neuro Start: 09/11/23 09:44 Freq: Status: Active Protocol: Document 09/11/23 09:45 NM (Rec: 09/11/23 10:34 NM [id number]) Sensation Evaluation Comments Summary Comments BLE equally intact to light touch sensation Deep Tendon Reflex & Clonus Assessment Deep Tendon Reflex Bilateral Patellar Deep Tendon Reflex 2+ Normal PT-OP-J Posture/Palpation/Skin Start: 09/11/23 09:44 Freq: Status: Active Protocol: Document 09/11/23 09:45 NM (Rec: 09/11/23 16:09 NM [id number]) Posture Evaluation Position Standing Head/C-Spine Posture Forward Head T-Spine Posture Flattened L-Spine Posture Decreased Lordosis Pelvis Posture Posterior Tilted Weight Distribution Balanced Hip Posture (L) Externally Rotated,(R) Externally Rotated Palpation Assessment Location back Palpation Findings Soft Tissue Tightness,Muscle Guarding,Tenderness Palpation Details Tenderness: T7, L4-L5, S1-2. Soft tissue tightness of B paraspinals, QL. Mid-thoracic and lower lumbar spine most tender, demos muscle guarding but no spasms PT-OP-K Range of Motion Start: 09/11/23 09:44 Freq: Status: Active Protocol: Document 09/11/23 09:45 NM (Rec: 09/11/23 10:34 NM [id number]) Lumbar Spine Range of Motion Lumbar Spine Active Percentage Flexion 85 Extension 50 Rotation Left 8 Rotation Right 2 Lateral Flexion Left 75 Lateral Flexion Right 50 ROM Limitations Soft Tissue Tightness Comments soreness with ext, B SB, rotation Hip Goniometric Range of Motion Hip Right Flexion w/Knee Flexed 100 Internal Rotation 25 External Rotation 25 Comments hamstring length 150 deg Left Flexion w/Knee Flexed 100 Internal Rotation 35 External Rotation 20 Comments hamstring length 160 deg Knee Goniometric Range of Motion Knee Right Flexion Active (degrees) 110 Extension Active (degrees) 2 Left Flexion Active (degrees) 110 Extension Active (degrees) 2 PT-OP-L Special Tests Start: 09/11/23 09:44 Freq: Status: Active Protocol: Document 09/11/23 09:45 NM (Rec: 09/11/23 10:34 NM [id number]) Special Tests Lumbar Spine Special Tests Plunkett/Quadrant Test Results + Comments local pain B, no radiation distraction Test Results + Comments reports relief of symptoms Straight Leg Raise Test Results + Comments right Slump Test Results - PT-OP-M Strength Start: 09/11/23 09:44 Freq: Status: Active Protocol: Document 09/11/23 09:45 NM (Rec: 09/11/23 10:34 NM [id number]) Trunk Strength Trunk Manual Muscle Testing Flexion 4+ Good+ Extension 4+ Good+ Rotation Left 4 Good Rotation Right 4 Good Lateral Flexion Left 4 Good Lateral Flexion Right 4 Good Comments Pain with resisted R lateral flexion, B rotation Hip Strength Hip Manual Muscle Testing Right Flexion (L2) 4 Good Extension (S1) 4- Good- Abduction 4- Good- Adduction 4+ Good+ External Rotation 4 Good Internal Rotation 4 Good Left Flexion (L2) 4 Good Extension (S1) 4- Good- Abduction 4- Good- Adduction 4+ Good+ External Rotation 4 Good Internal Rotation 4 Good Knee Strength Knee Manual Muscle Testing Right Flexion (S2) 5 Normal Extension (L3) 5 Normal Left Flexion (S2) 5 Normal Extension (L3) 5 Normal Ankle/Foot Strength Ankle and Foot Manual Muscle Testing Left Dorsiflexion (L4) 4 Good Plantarflexion (S1) 4 Good Right Dorsiflexion (L4) 4 Good Plantarflexion (S1) 4 Good PT-OP-Q Treatments Start: 09/11/23 09:44 Freq: Status: Active Protocol: Document 09/29/23 11:19 NM (Rec: 09/29/23 12:06 NM [id number]) Therapeutic Exercises Supine Exercises figure 4 stretch Supine Exercise Name knee flexed, slight pull to chest Side bilateral Reps/Minutes 1x60 ea Comments pain free, reports good feedback w/ stretch francisco j stretch Side bilateral Reps/Minutes 1x60 ea Comments pain free w/ stretch, but diff w/ assume position Standing Exercises counter plank bird dog Standing Exercise Name 1. LE only, 2. arms/legs Side bilateral Reps/Minutes 1. 1x10, 2. 2x10 ea Comments VC to initiate one extremity at a time and brace with abdominal muscles Therapeutic Activity Therapeutic Activity hip hinge Reps/Minutes 6 minutes total Comments 1. hip hinge to wall for tactile cues, verbally cued bend at hips like closing car door and tap wall Improved with reps but challenging for pt to coordinate, 2x10 2. deadlift AROM with dowel, 2x10 Wall for tactile cues behind pt, verbal cues for brief tap on wall and slight knee bend ~ lifting object from lower surface or ground. Pain free sit to stand Reps/Minutes 2 minutes total Comments with hip hinge, 2x10 to plinth , pain free Verbal cues for hip hinge with coordinated knee flexion, similar to picking object up from ground Manual Therapy Treatment Soft Tissue Mobilization lumbar spine Body Location paraspinals bilateral Mobilization Type Oscillations,Rolling,Strumming Intensity/Depth Moderate Body Position Sidelying Comments Pillow between thighs, L sidelying. Performed gentle to moderate rolling, strumming and oscillations of B lumbar paraspinals. Monitored for pain or discomfort. Pt with tenderness along lower lateral paraspinals and QL, reduced with rolling. Added gentle sidelying gapping with PT facilitating gentle elongation at paraspinals, blocking at R hips and ribs Self-Care/Home Management Treatment Education Patient Education Home Exercise Program Other Education HEP: supine figure 4 francisco j roe PT-OP-T Assessment and Plan Start: 09/11/23 09:44 Freq: Status: Active Protocol: Document 09/29/23 11:19 NM (Rec: 09/29/23 12:06 NM [id number]) Physical Therapy Assessment Goals Five Impairment HEP Short Term Goal (STG) Pt will report compliance with HEP at least 2-3x/wk in order to maximize progress made during PT sessions. STG Duration 6 weeks Plant Accountant Goal (LTG) Pt will report compliance with HEP at least 3x/wk in order to maintain progress and smoothly transition into independent exercise upon discharge from PT LTG Duration 12 weeks Four Impairment 20 STS in 30 seconds, 20 mat Short Term Goal (STG) Pt will be able to perform at least 10 bilateral squats without compensation and back pain <4/10 in order to demonstrate improved BLE and trunk strength for lifting, ADL, and activity STG Duration 6 weeks Long-Term Goal (LTG) Pt will be able to perform >20 sit to stands in 30 seconds without compensation or back pain in order to demonstrate improved BLE and trunk strength for lifting, ADL, and activity LTG Duration 12 weeks Three Impairment strength/stabilization Impairment B lateral flexion/rotation strength 4/5 Short Term Goal (STG) Pt will improve global trunk strength to at least 5/5 in order to demonstrate improved stability and core bracing during ADLs/activity tolerance STG Duration 6 weeks Plant Accountant Goal (LTG) Pt will be able to lift at least 10# from a low surface with good core bracing and body mechanics with back pain <4/10 in order demonstrate improved trunk strength during ADLs/activity tolerance LTG Duration 12 weeks Two Impairment strength Impairment BLE hip strength 4-/5 to 4/5 Short Term Goal (STG) Pt will improve B hip flexion, abduction, and extension strength to at least 4/5 MMT in order to demonstrate increased BLE strength required for gait, ADLs STG Duration 6 weeks Plant Accountant Goal (LTG) Pt will improve B hip flexion, abduction, and extension strength to at least 4+/5 MMT in order to demonstrate increased BLE strength required for gait, ADLs LTG Duration 12 weeks One Impairment oswestry Impairment score 9/50 Short Term Goal (STG) Pt will decrease oswestry score <9/50 points in order to demonstrate improved activity tolerance, pain management, and QOL STG Duration 6 weeks Plant Accountant Goal (LTG) Pt will decrease oswestry score <5/50 points in order to demonstrate improved activity tolerance, pain management, and QOL LTG Duration 12 weeks Assessment Summary Assessment Pt tolerated session well, reporting that he had a good workout after session and is painfree. PT educated pt on continued use of gentle soft tissue mobilization and modalities to relieve pain or soreness; also educated pt on listening to body, being aware of limitations and not trying to push through pain if present in order to prevent exacerbations. Pt verbalizes agreement. Initiated session with manual treatment to assist pt for elongation of paraspinal soft tissue and pain reduction; with gentle lengthening into L lateral flexion while in sidelying. Initiated hip flexor and piriformis stretch to address tightness of hip flexors and glutes. Continued with core bracing and coordinating lumbar extension with modified bird dog; cued to maintain neutral spine, minimize pelvic rotation. Emphasis on hip hinge during both deadlift and sit to stand for body mechanics retraining. Pt challenged by movement and with verbal/tactile cues against wall. Improved with reps, but pt would benefit from additional time to address neutral spine positioning, core bracing, and hip hinge movement with bending or lifting from ground . Pt pain free with hip hinge and sit to stand during session. Pt continues to have tenderness at thoracic spine near previous fracture; recommended pt follow up with PCP if his pain or tenderness worsens/increased frequency, as currently more intermittent with certani activities (pt cannot replicate in session). Pt would benefit from skilled PT for body mechanics training , BLE and core/lumbar strengthening in order to decrease pain symptoms and improve activity tolerance/QOL . Physical Therapy Plan Frequency and Duration Frequency of Treatment 2x/Week Duration of treatment (weeks) 12 Plan of Care Start Date 09/11/23 Plan of Care End Date 12/08/23 Therapeutic Interventions Therapeutic Interventions Aquatic Therapy,Balance Training,Coordination Training ,Gait Training,Home Exercise Program,Joint Mobilizations, Manual Therapy,Neuromuscular Re-education,Orthotic/ Prosthetic Management,Patient/ Caregiver Education,Self-Care/ Home Management,Sensory Integration,Soft Tissue Mobilization,Taping, Therapeutic Activities, Therapeutic Exercises Modalities Biofeedback,Cold Pack/Ice Massage,Electric Stimulation, Hot Packs,Traction- Mechanical ,Ultrasound,Vasopneumatic Devices Other Therapeutic Interventions No thoracic spine mobilizations Other Referrals/Consults Referrals/Consults Recommended Due to pt PMH of thoracic stress fractures, would benefit from additional imaging to clear thoracic spine Next Visit Focus/Plan Next Note Type Treatment Note Next Visit Plan Next session: review hip hinge and trial picking up objects from floor, review pallof press and add squat, lat pull down, cont with stretching and hip abd/ext/quad strength functionally, trial side steps and leg press in future sessions Manual: STM only POC: progress into flexion bias for core/lumbar strengthening, hip strengthening
--- NOTE | 2023-10-04 16:40 | PT.OTN ---
Current Diagnoses Low back pain, unspecified (10/04/23) Weakness (10/04/23) Physical Therapy Treatment Note PT-OP-A Visit Information Start: 09/11/23 09:44 Freq: Status: Active Protocol: Document 10/04/23 12:52 AB (Rec: 10/04/23 14:21 AB [id number]) Out-Patient Physical Therapy Visit Information Visit Information Visit Type Treatment Note Visit Note Access Code: [email or web address] Visit Start Time 13:52 Visit Stop Time 14:32 Visit Number 6 Number of SALES COMMISSIONS ANALYST Visits 1 Evaluation Information Evaluation Date 09/11/23 Precautions Precautions Hx of thoracic and lumbar stress fractures PT-OP-B Current Condition Start: 09/11/23 09:44 Freq: Status: Active Protocol: Document 09/11/23 09:45 NM (Rec: 09/11/23 10:34 NM [id number]) Current Condition History of Current Condition Onset Date 3 weeks ago Current Complaints pain, decreased activity History of Current Condition Pt presents with low back pain after doing yard work. He was shoveling sand/mulch for 3 hours into a wheelbarrow (to L >R), which over did it. He had immediately increased soreness pain after that day, commonly flared with physical activity now. Reports restricting motions, very easily flared. Pt has hx of stress fracture (T5,7) in spine from from lifting/ carry 75# crate, previous L shoulder injury from fall ( rotator cuff tear) in 2021. Recent lumbar spine imaging reveals no fractures but degenerative disc disease L4-5 and L5-S1. Pt states he has not numbness/tingling, no changes in sensation. 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 PT-OP-E Functional Tests Start: 09/11/23 09:44 Freq: Status: Active Protocol: Document 09/11/23 09:45 NM (Rec: 09/11/23 16:09 NM [id number]) Functional Tests 30 Second Sit to Stand Test Score 20 Comments pain free, valgus, fatiguing , feels pull/stretch Other Forward trunk flexion test Name of Test measured finger to floor Score 4 Comment cued knee ext due to hamstring length, no pain but stretch PT-OP-F Manual Assessment Start: 09/11/23 09:44 Freq: Status: Active Protocol: Document 09/11/23 09:45 NM (Rec: 09/11/23 16:09 NM [id number]) Manual Assessments Soft Tissue Assessment Soft Tissue Mobility Assessment Decreased B hamstring length. Tenderness of B paraspinals, Joint Mobility Assessment Joint Mobility Assessment Decreased lumbar lordosis. Decreased mobility with P-A springing along lumbar and thoracic spine. Midline tenderness at thoracic spine near T7; tenderness slightly lateral to spine at L4-S1. PT-OP-G Mobility & Gait Start: 09/11/23 09:44 Freq: Status: Active Protocol: Document 09/11/23 09:45 NM (Rec: 09/11/23 16:09 NM [id number]) OP Gait Assessment Gait Gait Assistance Required: Independent Distance (Feet) 150 Gait Deviations General Gait Pattern Antalgic,Flexed Trunk Factors Limiting Gait Function Factors Limiting Gait Function Decreased Strength,Pain PT-OP-H Neuro Start: 09/11/23 09:44 Freq: Status: Active Protocol: Document 09/11/23 09:45 NM (Rec: 09/11/23 10:34 NM [id number]) Sensation Evaluation Comments Summary Comments BLE equally intact to light touch sensation Deep Tendon Reflex & Clonus Assessment Deep Tendon Reflex Bilateral Patellar Deep Tendon Reflex 2+ Normal PT-OP-J Posture/Palpation/Skin Start: 09/11/23 09:44 Freq: Status: Active Protocol: Document 09/11/23 09:45 NM (Rec: 09/11/23 16:09 NM [id number]) Posture Evaluation Position Standing Head/C-Spine Posture Forward Head T-Spine Posture Flattened L-Spine Posture Decreased Lordosis Pelvis Posture Posterior Tilted Weight Distribution Balanced Hip Posture (L) Externally Rotated,(R) Externally Rotated Palpation Assessment Location back Palpation Findings Soft Tissue Tightness,Muscle Guarding,Tenderness Palpation Details Tenderness: T7, L4-L5, S1-2. Soft tissue tightness of B paraspinals, QL. Mid-thoracic and lower lumbar spine most tender, demos muscle guarding but no spasms PT-OP-K Range of Motion Start: 09/11/23 09:44 Freq: Status: Active Protocol: Document 09/11/23 09:45 NM (Rec: 09/11/23 10:34 NM [id number]) Lumbar Spine Range of Motion Lumbar Spine Active Percentage Flexion 85 Extension 50 Rotation Left 8 Rotation Right 2 Lateral Flexion Left 75 Lateral Flexion Right 50 ROM Limitations Soft Tissue Tightness Comments soreness with ext, B SB, rotation Hip Goniometric Range of Motion Hip Right Flexion w/Knee Flexed 100 Internal Rotation 25 External Rotation 25 Comments hamstring length 150 deg Left Flexion w/Knee Flexed 100 Internal Rotation 35 External Rotation 20 Comments hamstring length 160 deg Knee Goniometric Range of Motion Knee Right Flexion Active (degrees) 110 Extension Active (degrees) 2 Left Flexion Active (degrees) 110 Extension Active (degrees) 2 PT-OP-L Special Tests Start: 09/11/23 09:44 Freq: Status: Active Protocol: Document 09/11/23 09:45 NM (Rec: 09/11/23 10:34 NM [id number]) Special Tests Lumbar Spine Special Tests Plunkett/Quadrant Test Results + Comments local pain B, no radiation distraction Test Results + Comments reports relief of symptoms Straight Leg Raise Test Results + Comments right Slump Test Results - PT-OP-M Strength Start: 09/11/23 09:44 Freq: Status: Active Protocol: Document 09/11/23 09:45 NM (Rec: 09/11/23 10:34 NM [id number]) Trunk Strength Trunk Manual Muscle Testing Flexion 4+ Good+ Extension 4+ Good+ Rotation Left 4 Good Rotation Right 4 Good Lateral Flexion Left 4 Good Lateral Flexion Right 4 Good Comments Pain with resisted R lateral flexion, B rotation Hip Strength Hip Manual Muscle Testing Right Flexion (L2) 4 Good Extension (S1) 4- Good- Abduction 4- Good- Adduction 4+ Good+ External Rotation 4 Good Internal Rotation 4 Good Left Flexion (L2) 4 Good Extension (S1) 4- Good- Abduction 4- Good- Adduction 4+ Good+ External Rotation 4 Good Internal Rotation 4 Good Knee Strength Knee Manual Muscle Testing Right Flexion (S2) 5 Normal Extension (L3) 5 Normal Left Flexion (S2) 5 Normal Extension (L3) 5 Normal Ankle/Foot Strength Ankle and Foot Manual Muscle Testing Left Dorsiflexion (L4) 4 Good Plantarflexion (S1) 4 Good Right Dorsiflexion (L4) 4 Good Plantarflexion (S1) 4 Good PT-OP-Q Treatments Start: 09/11/23 09:44 Freq: Status: Active Protocol: Document 10/04/23 12:52 AB (Rec: 10/04/23 14:21 AB [id number]) Therapeutic Exercises Supine Exercises lower trunk rotation Reps/Minutes 2 min Comments verbal cues to perform in pain free range Prone Exercises prone UE/LE ext/superman Prone Exercise Name Patient reports this exercise decreased his thoracic back pain Side bilateral Reps/Minutes 20 seconds Comments Patient initiates and demonstrates this exercise commenting it dec pain Standing Exercises high row Side bilateral Resistance level 3 light green band Reps/Minutes 2 X15 Comments verbal cues to keep elbows flexed Pallof press Resistance level 3 then level 4 royal blue band Reps/Minutes X15 X 2 one set each band Comments monitored for difficulty Therapeutic Activity Therapeutic Activity lifting 5 lb with pivot/WS Reps/Minutes X8 counter height X 8 waist height post training Comments Patient ed with use of spine model importance of movement feet or weight shift/pivot when lifting and moving items Manual Therapy Treatment Soft Tissue Mobilization lumbar spine Body Location paraspinals bilateral Mobilization Type Sustained Pressure Intensity/Depth Moderate Body Position Sidelying Comments pillow between knees, monitored for pain PT-OP-T Assessment and Plan Start: 09/11/23 09:44 Freq: Status: Active Protocol: Document 10/04/23 12:52 AB (Rec: 10/04/23 14:21 AB [id number]) Physical Therapy Assessment Goals Five Impairment HEP Short Term Goal (STG) Pt will report compliance with HEP at least 2-3x/wk in order to maximize progress made during PT sessions. STG Duration 6 weeks Head Tennis Coach Goal (LTG) Pt will report compliance with HEP at least 3x/wk in order to maintain progress and smoothly transition into independent exercise upon discharge from PT LTG Duration 12 weeks Four Impairment 20 STS in 30 seconds, 20 mat Short Term Goal (STG) Pt will be able to perform at least 10 bilateral squats without compensation and back pain <4/10 in order to demonstrate improved BLE and trunk strength for lifting, ADL, and activity STG Duration 6 weeks Usp Goal (LTG) Pt will be able to perform >20 sit to stands in 30 seconds without compensation or back pain in order to demonstrate improved BLE and trunk strength for lifting, ADL, and activity LTG Duration 12 weeks Three Impairment strength/stabilization Impairment B lateral flexion/rotation strength 4/5 Short Term Goal (STG) Pt will improve global trunk strength to at least 5/5 in order to demonstrate improved stability and core bracing during ADLs/activity tolerance STG Duration 6 weeks Usp Goal (LTG) Pt will be able to lift at least 10# from a low surface with good core bracing and body mechanics with back pain <4/10 in order demonstrate improved trunk strength during ADLs/activity tolerance LTG Duration 12 weeks Two Impairment strength Impairment BLE hip strength 4-/5 to 4/5 Short Term Goal (STG) Pt will improve B hip flexion, abduction, and extension strength to at least 4/5 MMT in order to demonstrate increased BLE strength required for gait, ADLs STG Duration 6 weeks Head Tennis Coach Goal (LTG) Pt will improve B hip flexion, abduction, and extension strength to at least 4+/5 MMT in order to demonstrate increased BLE strength required for gait, ADLs LTG Duration 12 weeks One Impairment oswestry Impairment score 9/50 Short Term Goal (STG) Pt will decrease oswestry score <9/50 points in order to demonstrate improved activity tolerance, pain management, and QOL STG Duration 6 weeks Usp Goal (LTG) Pt will decrease oswestry score <5/50 points in order to demonstrate improved activity tolerance, pain management, and QOL LTG Duration 12 weeks Assessment Summary Assessment Patient reports feeling like he exercised end of session. Good return demonstration for WS pivot when lifting 5 lb weights Physical Therapy Plan Frequency and Duration Frequency of Treatment 2x/Week Duration of treatment (weeks) 12 Plan of Care Start Date 09/11/23 Plan of Care End Date 12/08/23 Next Visit Focus/Plan Next Note Type Treatment Note Next Visit Plan Next session: review hip hinge and trial picking up objects from floor, cont with stretching and hip abd/ext/ quad strength functionally, trial side steps and leg press in future sessions Manual: STM only POC: progress into flexion bias for core/lumbar strengthening, hip strengthening
--- NOTE | 2023-10-09 11:45 | PT.OTN ---
Current Diagnoses Low back pain, unspecified (10/09/23) Weakness (10/09/23) Physical Therapy Treatment Note PT-OP-A Visit Information Start: 09/11/23 09:44 Freq: Status: Active Protocol: Document 10/09/23 10:33 NM (Rec: 10/09/23 11:45 NM [id number]) Out-Patient Physical Therapy Visit Information Visit Information Visit Type Progress Note Visit Start Time 10:35 Visit Stop Time 11:15 Visit Number 7 Evaluation Information Evaluation Date 09/11/23 Precautions Precautions Hx of thoracic and lumbar stress fractures PT-OP-B Current Condition Start: 09/11/23 09:44 Freq: Status: Active Protocol: Document 09/11/23 09:45 NM (Rec: 09/11/23 10:34 NM [id number]) Current Condition History of Current Condition Onset Date 3 weeks ago Current Complaints pain, decreased activity History of Current Condition Pt presents with low back pain after doing yard work. He was shoveling sand/mulch for 3 hours into a wheelbarrow (to L >R), which over did it. He had immediately increased soreness pain after that day, commonly flared with physical activity now. Reports restricting motions, very easily flared. Pt has hx of stress fracture (T5,7) in spine from from lifting/ carry 75# crate, previous L shoulder injury from fall ( rotator cuff tear) in 2021. Recent lumbar spine imaging reveals no fractures but degenerative disc disease L4-5 and L5-S1. Pt states he has not numbness/tingling, no changes in sensation. 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 Pt states he has back pain from walking, states jarring on back on R side. On Monday, pt moved furniture at [employer], states no pain at the time but sore/aggravated afterward. PT-OP-E Functional Tests Start: 09/11/23 09:44 Freq: Status: Active Protocol: Document 09/11/23 09:45 NM (Rec: 09/11/23 16:09 NM [id number]) Functional Tests 30 Second Sit to Stand Test Score 20 Comments pain free, valgus, fatiguing , feels pull/stretch Other Forward trunk flexion test Name of Test measured finger to floor Score 4 Comment cued knee ext due to hamstring length, no pain but stretch PT-OP-F Manual Assessment Start: 09/11/23 09:44 Freq: Status: Active Protocol: Document 09/11/23 09:45 NM (Rec: 09/11/23 16:09 NM [id number]) Manual Assessments Soft Tissue Assessment Soft Tissue Mobility Assessment Decreased B hamstring length. Tenderness of B paraspinals, Joint Mobility Assessment Joint Mobility Assessment Decreased lumbar lordosis. Decreased mobility with P-A springing along lumbar and thoracic spine. Midline tenderness at thoracic spine near T7; tenderness slightly lateral to spine at L4-S1. PT-OP-G Mobility & Gait Start: 09/11/23 09:44 Freq: Status: Active Protocol: Document 09/11/23 09:45 NM (Rec: 09/11/23 16:09 NM [id number]) OP Gait Assessment Gait Gait Assistance Required: Independent Distance (Feet) 150 Gait Deviations General Gait Pattern Antalgic,Flexed Trunk Factors Limiting Gait Function Factors Limiting Gait Function Decreased Strength,Pain PT-OP-H Neuro Start: 09/11/23 09:44 Freq: Status: Active Protocol: Document 09/11/23 09:45 NM (Rec: 09/11/23 10:34 NM [id number]) Sensation Evaluation Comments Summary Comments BLE equally intact to light touch sensation Deep Tendon Reflex & Clonus Assessment Deep Tendon Reflex Bilateral Patellar Deep Tendon Reflex 2+ Normal PT-OP-J Posture/Palpation/Skin Start: 09/11/23 09:44 Freq: Status: Active Protocol: Document 09/11/23 09:45 NM (Rec: 09/11/23 16:09 NM [id number]) Posture Evaluation Position Standing Head/C-Spine Posture Forward Head T-Spine Posture Flattened L-Spine Posture Decreased Lordosis Pelvis Posture Posterior Tilted Weight Distribution Balanced Hip Posture (L) Externally Rotated,(R) Externally Rotated Palpation Assessment Location back Palpation Findings Soft Tissue Tightness,Muscle Guarding,Tenderness Palpation Details Tenderness: T7, L4-L5, S1-2. Soft tissue tightness of B paraspinals, QL. Mid-thoracic and lower lumbar spine most tender, demos muscle guarding but no spasms PT-OP-K Range of Motion Start: 09/11/23 09:44 Freq: Status: Active Protocol: Document 10/09/23 10:33 NM (Rec: 10/09/23 11:45 NM [id number]) Lumbar Spine Range of Motion Lumbar Spine Active Percentage Flexion 85 Extension 50 Rotation Left 8 Rotation Right 2 Lateral Flexion Left 75 Lateral Flexion Right 50 ROM Limitations Soft Tissue Tightness Comments soreness with ext, B SB, rotation 10/09/23: 3 from floor with cue for leg straight, 60% for R lateral flexion PT-OP-L Special Tests Start: 09/11/23 09:44 Freq: Status: Active Protocol: Document 09/11/23 09:45 NM (Rec: 09/11/23 10:34 NM [id number]) Special Tests Lumbar Spine Special Tests Plunkett/Quadrant Test Results + Comments local pain B, no radiation distraction Test Results + Comments reports relief of symptoms Straight Leg Raise Test Results + Comments right Slump Test Results - PT-OP-M Strength Start: 09/11/23 09:44 Freq: Status: Active Protocol: Document 10/09/23 10:33 NM (Rec: 10/09/23 11:45 NM [id number]) Trunk Strength Trunk Manual Muscle Testing Flexion 4+ Good+ Extension 4+ Good+ Rotation Left 4 Good Rotation Right 4 Good Lateral Flexion Left 4 Good Lateral Flexion Right 4 Good Comments Pain with resisted R lateral flexion, B rotation 10/09/23: 4/5, pain free PT-OP-Q Treatments Start: 09/11/23 09:44 Freq: Status: Active Protocol: Document 10/09/23 10:33 NM (Rec: 10/09/23 11:45 NM [id number]) Gym Equipment Shuttle Recovery B squat Details cued TKE w/o locking, no knee valgus Resistance 75# (3 navy), lvl 2 band around thighs Reps/Time 2x10 Therapeutic Exercises Standing Exercises stretching Standing Exercise Name 1. pec wall stretch 90/90, 2. hamstring stretch Side bilateral Equipment Used 1. hand support on stairs, foot elevated on 24 step Reps/Minutes 1x30 ea Comments requires cues, increased time for form/correct execution side steps Side bilateral Resistance lvl 2 band around ankles Reps/Minutes 2x20 ft Comments cued foot clearance, neutral hip rotation squat Standing Exercise Name AROM squats to plinth Side bilateral Reps/Minutes 2x15 Comments improved hip hinge post training to plinth Therapeutic Activity Therapeutic Activity hip hinge Reps/Minutes 12 minutes Comments 1. hip hinge to wall, 1x10 2. hip hinge with squat to table, 3x8 3. deadlift with 8# weight to knees, 2x8 4. box lifts from floor, 1x10 Cues for neutral spine, hip hinge (verbal and tactile), rhomboid and core facilitation /bracing. Improved with reps but requires moderate cues initially Self-Care/Home Management Treatment Education Patient Education Home Exercise Program Other Education HEP: side steps with band around ankles (issue band) PT-OP-T Assessment and Plan Start: 09/11/23 09:44 Freq: Status: Active Protocol: Document 10/09/23 10:33 NM (Rec: 10/09/23 11:45 NM [id number]) Physical Therapy Assessment Goals Five Impairment HEP Short Term Goal (STG) Pt will report compliance with HEP at least 2-3x/wk in order to maximize progress made during PT sessions. 10/09/23: daily STG Duration 6 weeks Railroad Police Officer Goal (LTG) Pt will report compliance with HEP at least 3x/wk in order to maintain progress and smoothly transition into independent exercise upon discharge from PT LTG Duration 12 weeks Four Impairment 20 STS in 30 seconds, 20 mat Short Term Goal (STG) Pt will be able to perform at least 10 bilateral squats without compensation and back pain <4/10 in order to demonstrate improved BLE and trunk strength for lifting, ADL, and activity 10/09/23: able to perform 10 squats with moderate cues to table, difficulty with coordinating squat & hip hinge STG Duration 6 weeks PROGRESSINg [employer] Officer Goal (LTG) Pt will be able to perform >20 sit to stands in 30 seconds without compensation or back pain in order to demonstrate improved BLE and trunk strength for lifting, ADL, and activity LTG Duration 12 weeks Three Impairment strength/stabilization Impairment B lateral flexion/rotation strength 4/5 Short Term Goal (STG) Pt will improve global trunk strength to at least 5/5 in order to demonstrate improved stability and core bracing during ADLs/activity tolerance 10/09/23: 5/5, improved stabilization STG Duration 6 weeks MET [employer] Police Officer Goal (LTG) Pt will be able to lift at least 10# from a low surface with good core bracing and body mechanics with back pain <4/10 in order demonstrate improved trunk strength during ADLs/activity tolerance LTG Duration 12 weeks Two Impairment strength Impairment BLE hip strength 4-/5 to 4/5 Short Term Goal (STG) Pt will improve B hip flexion, abduction, and extension strength to at least 4/5 MMT in order to demonstrate increased BLE strength required for gait, ADLs 10/09/23: 4/5 bilaterally STG Duration 6 weeks MET [employer] Officer Goal (LTG) Pt will improve B hip flexion, abduction, and extension strength to at least 4+/5 MMT in order to demonstrate increased BLE strength required for gait, ADLs LTG Duration 12 weeks One Impairment oswestry Impairment score 9/50 Short Term Goal (STG) Pt will decrease oswestry score <9/50 points in order to demonstrate improved activity tolerance, pain management, and QOL 10/09/23: 4/50 STG Duration 6 weeks MET [employer] Officer Goal (LTG) Pt will decrease oswestry score <5/50 points in order to demonstrate improved activity tolerance, pain management, and QOL 10/09/23: 4/50 LTG Duration 12 weeks MET Progress Towards Goals Progress Towards Goals Progressing Toward Goals,Goals Met Assessment Summary Assessment Pt tolerated session well without any increased pain. He demonstrates improvements in ability to brace core during functional trunk stabilization activities; however, requires moderate cues for core/ rhomboid faciliation and neutral spine/posture during lifting activities. Continued with addressing body mechanics through hip hinge, deadlift, and squat. Pt challenged initially by squat due to coordination of hip hinge, but improved with reps and tactile/verbal cues for form. Initiated hamstring and pectoralis stretching to improve muscle length of trunk and hips. Initiated side steps and lep press to increase B hip strength for improved stability during gait , functional ADLs with lifting and bending. Pt tolerated resistance and new exercises well. PT educated pt on safety and body mechanics during lifting. Pt verbalizes understanding. Physical Therapy Plan Frequency and Duration Frequency of Treatment 2x/Week Duration of treatment (weeks) 12 Plan of Care Start Date 09/11/23 Plan of Care End Date 12/08/23 Therapeutic Interventions Therapeutic Interventions Aquatic Therapy,Balance Training,Coordination Training ,Gait Training,Home Exercise Program,Joint Mobilizations, Manual Therapy,Neuromuscular Re-education,Orthotic/ Prosthetic Management,Patient/ Caregiver Education,Self-Care/ Home Management,Sensory Integration,Soft Tissue Mobilization,Taping, Therapeutic Activities, Therapeutic Exercises Modalities Biofeedback,Cold Pack/Ice Massage,Electric Stimulation, Hot Packs,Traction- Mechanical ,Ultrasound,Vasopneumatic Devices Other Therapeutic Interventions No thoracic spine mobilizations Other Referrals/Consults Referrals/Consults Recommended Due to pt PMH of thoracic stress fractures, would benefit from additional imaging to clear thoracic spine Next Visit Focus/Plan Next Note Type Treatment Note Next Visit Plan Next session: Review squat and deadlift, leg press/LAQ, hip 3 way vs side steps and step ups, functional core, picking up objects from floor, HS flexibility Manual: STM only POC: progress into flexion bias for core/lumbar strengthening, hip strengthening
--- NOTE | 2023-10-13 16:42 | PT.OTN ---
Current Diagnoses Low back pain, unspecified (10/13/23) Weakness (10/13/23) Physical Therapy Treatment Note PT-OP-A Visit Information Start: 09/11/23 09:44 Freq: Status: Active Protocol: Document 10/13/23 12:40 AB (Rec: 10/13/23 14:56 AB [id number]) Out-Patient Physical Therapy Visit Information Visit Information Visit Type Treatment Note Visit Note Access Code: [email or web address] Visit Start Time 13:05 Visit Stop Time 13:47 Visit Number 8 Number of BOSS MINER Visits 1 Evaluation Information Evaluation Date 09/11/23 Precautions Precautions Hx of thoracic and lumbar stress fractures PT-OP-B Current Condition Start: 09/11/23 09:44 Freq: Status: Active Protocol: Document 09/11/23 09:45 NM (Rec: 09/11/23 10:34 NM [id number]) Current Condition History of Current Condition Onset Date 3 weeks ago Current Complaints pain, decreased activity History of Current Condition Pt presents with low back pain after doing yard work. He was shoveling sand/mulch for 3 hours into a wheelbarrow (to L >R), which over did it. He had immediately increased soreness pain after that day, commonly flared with physical activity now. Reports restricting motions, very easily flared. Pt has hx of stress fracture (T5,7) in spine from from lifting/ carry 75# crate, previous L shoulder injury from fall ( rotator cuff tear) in 2021. Recent lumbar spine imaging reveals no fractures but degenerative disc disease L4-5 and L5-S1. Pt states he has not numbness/tingling, no changes in sensation. 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 Patient reports he is 80% recovered from this. AROM right hamstring lacking 35 deg . left lacking PT-OP-E Functional Tests Start: 09/11/23 09:44 Freq: Status: Active Protocol: Document 09/11/23 09:45 NM (Rec: 09/11/23 16:09 NM [id number]) Functional Tests 30 Second Sit to Stand Test Score 20 Comments pain free, valgus, fatiguing , feels pull/stretch Other Forward trunk flexion test Name of Test measured finger to floor Score 4 Comment cued knee ext due to hamstring length, no pain but stretch PT-OP-F Manual Assessment Start: 09/11/23 09:44 Freq: Status: Active Protocol: Document 09/11/23 09:45 NM (Rec: 09/11/23 16:09 NM [id number]) Manual Assessments Soft Tissue Assessment Soft Tissue Mobility Assessment Decreased B hamstring length. Tenderness of B paraspinals, Joint Mobility Assessment Joint Mobility Assessment Decreased lumbar lordosis. Decreased mobility with P-A springing along lumbar and thoracic spine. Midline tenderness at thoracic spine near T7; tenderness slightly lateral to spine at L4-S1. PT-OP-G Mobility & Gait Start: 09/11/23 09:44 Freq: Status: Active Protocol: Document 09/11/23 09:45 NM (Rec: 09/11/23 16:09 NM [id number]) OP Gait Assessment Gait Gait Assistance Required: Independent Distance (Feet) 150 Gait Deviations General Gait Pattern Antalgic,Flexed Trunk Factors Limiting Gait Function Factors Limiting Gait Function Decreased Strength,Pain PT-OP-H Neuro Start: 09/11/23 09:44 Freq: Status: Active Protocol: Document 09/11/23 09:45 NM (Rec: 09/11/23 10:34 NM [id number]) Sensation Evaluation Comments Summary Comments BLE equally intact to light touch sensation Deep Tendon Reflex & Clonus Assessment Deep Tendon Reflex Bilateral Patellar Deep Tendon Reflex 2+ Normal PT-OP-J Posture/Palpation/Skin Start: 09/11/23 09:44 Freq: Status: Active Protocol: Document 09/11/23 09:45 NM (Rec: 09/11/23 16:09 NM [id number]) Posture Evaluation Position Standing Head/C-Spine Posture Forward Head T-Spine Posture Flattened L-Spine Posture Decreased Lordosis Pelvis Posture Posterior Tilted Weight Distribution Balanced Hip Posture (L) Externally Rotated,(R) Externally Rotated Palpation Assessment Location back Palpation Findings Soft Tissue Tightness,Muscle Guarding,Tenderness Palpation Details Tenderness: T7, L4-L5, S1-2. Soft tissue tightness of B paraspinals, QL. Mid-thoracic and lower lumbar spine most tender, demos muscle guarding but no spasms PT-OP-K Range of Motion Start: 09/11/23 09:44 Freq: Status: Active Protocol: Document 10/09/23 10:33 NM (Rec: 10/09/23 11:45 NM [id number]) Lumbar Spine Range of Motion Lumbar Spine Active Percentage Flexion 85 Extension 50 Rotation Left 8 Rotation Right 2 Lateral Flexion Left 75 Lateral Flexion Right 50 ROM Limitations Soft Tissue Tightness Comments soreness with ext, B SB, rotation 10/09/23: 3 from floor with cue for leg straight, 60% for R lateral flexion PT-OP-L Special Tests Start: 09/11/23 09:44 Freq: Status: Active Protocol: Document 09/11/23 09:45 NM (Rec: 09/11/23 10:34 NM [id number]) Special Tests Lumbar Spine Special Tests Plunkett/Quadrant Test Results + Comments local pain B, no radiation distraction Test Results + Comments reports relief of symptoms Straight Leg Raise Test Results + Comments right Slump Test Results - PT-OP-M Strength Start: 09/11/23 09:44 Freq: Status: Active Protocol: Document 10/09/23 10:33 NM (Rec: 10/09/23 11:45 NM [id number]) Trunk Strength Trunk Manual Muscle Testing Flexion 4+ Good+ Extension 4+ Good+ Rotation Left 4 Good Rotation Right 4 Good Lateral Flexion Left 4 Good Lateral Flexion Right 4 Good Comments Pain with resisted R lateral flexion, B rotation 10/09/23: 4/5, pain free PT-OP-Q Treatments Start: 09/11/23 09:44 Freq: Status: Active Protocol: Document 10/13/23 12:40 AB (Rec: 10/13/23 14:56 AB [id number]) Therapeutic Exercises Supine Exercises lower trunk rotation Reps/Minutes 2 min Comments verbal cues to perform in pain free range hamstring stretch from hooklying Reps/Minutes X2 each LE 60 seconds each Standing Exercises lifts Standing Exercise Name with and without dowel Side bilateral Reps/Minutes X6 Comments Verbal and visual cues squat Standing Exercise Name AROM squats to plinth Side bilateral Resistance level 3 green band PT-OP-T Assessment and Plan Start: 09/11/23 09:44 Freq: Status: Active Protocol: Document 10/13/23 12:40 AB (Rec: 10/13/23 14:56 AB [id number]) Physical Therapy Assessment Goals Five Impairment HEP Short Term Goal (STG) Pt will report compliance with HEP at least 2-3x/wk in order to maximize progress made during PT sessions. 10/09/23: daily STG Duration 6 weeks Halfway Goal (LTG) Pt will report compliance with HEP at least 3x/wk in order to maintain progress and smoothly transition into independent exercise upon discharge from PT LTG Duration 12 weeks Four Impairment 20 STS in 30 seconds, 20 mat Short Term Goal (STG) Pt will be able to perform at least 10 bilateral squats without compensation and back pain <4/10 in order to demonstrate improved BLE and trunk strength for lifting, ADL, and activity 10/09/23: able to perform 10 squats with moderate cues to table, difficulty with coordinating squat & hip hinge STG Duration 6 weeks PROGRESSINg Halfway Goal (LTG) Pt will be able to perform >20 sit to stands in 30 seconds without compensation or back pain in order to demonstrate improved BLE and trunk strength for lifting, ADL, and activity LTG Duration 12 weeks Three Impairment strength/stabilization Impairment B lateral flexion/rotation strength 4/5 Short Term Goal (STG) Pt will improve global trunk strength to at least 5/5 in order to demonstrate improved stability and core bracing during ADLs/activity tolerance 10/09/23: 5/5, improved stabilization STG Duration 6 weeks MET Halfway Goal (LTG) Pt will be able to lift at least 10# from a low surface with good core bracing and body mechanics with back pain <4/10 in order demonstrate improved trunk strength during ADLs/activity tolerance LTG Duration 12 weeks Two Impairment strength Impairment BLE hip strength 4-/5 to 4/5 Short Term Goal (STG) Pt will improve B hip flexion, abduction, and extension strength to at least 4/5 MMT in order to demonstrate increased BLE strength required for gait, ADLs 10/09/23: 4/5 bilaterally STG Duration 6 weeks MET Burning Machine Operator Goal (LTG) Pt will improve B hip flexion, abduction, and extension strength to at least 4+/5 MMT in order to demonstrate increased BLE strength required for gait, ADLs LTG Duration 12 weeks One Impairment oswestry Impairment score 9/50 Short Term Goal (STG) Pt will decrease oswestry score <9/50 points in order to demonstrate improved activity tolerance, pain management, and QOL 10/09/23: 4/50 STG Duration 6 weeks MET Halfway Goal (LTG) Pt will decrease oswestry score <5/50 points in order to demonstrate improved activity tolerance, pain management, and QOL 10/09/23: 450 LTG Duration 12 weeks MET Assessment Summary Assessment Bon reports feeling muscle fatigue end of session, not sore. Increased verbal, visual and tactile cues for lift, increased hamstring stiffness Physical Therapy Plan Frequency and Duration Frequency of Treatment 2x/Week Duration of treatment (weeks) 12 Plan of Care Start Date 09/11/23 Plan of Care End Date 12/08/23 Next Visit Focus/Plan Next Note Type Treatment Note Next Visit Plan Next session: Review squat and deadlift, leg press/LAQ, hip 3 way vs side steps and step ups, functional core, picking up objects from floor, HS flexibility Manual: STM only POC: progress into flexion bias for core/lumbar strengthening, hip strengthening
--- NOTE | 2023-10-17 13:28 | PT.OTN ---
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 He was shoveling sand/mulch for 3 hours into a wheelbarrow (to L >R), which over did it. He had immediately increased soreness pain after that day, commonly flared with physical activity now. Reports restricting motions, very easily flared. Pt has hx of stress fracture (T5,7) in spine from from lifting/ carry 75# crate, previous L shoulder injury from fall ( rotator cuff tear) in 2021. Recent lumbar spine imaging reveals no fractures but degenerative disc disease L4-5 and L5-S1. Pt states he has not numbness/tingling, no changes in sensation. 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 Patient reports the back feels good walking around, back felt fine like during the exercises but had muscles soreness after. Patient reports the exercise/ manual previous session set hip up for the weekend yard work. Patient reports pain when it occurs right sided thoracic or thoracic lumbar junction. PT-OP-E Functional Tests Start: 09/11/23 09:44 Freq: Status: Active Protocol: Document 09/11/23 09:45 NM (Rec: 09/11/23 16:09 NM [id number]) Functional Tests 30 Second Sit to Stand Test Score 20 Comments pain free, valgus, fatiguing , feels pull/stretch Other Forward trunk flexion test Name of Test measured finger to floor Score 4 Comment cued knee ext due to hamstring length, no pain but stretch PT-OP-F Manual Assessment Start: 09/11/23 09:44 Freq: Status: Active Protocol: Document 09/11/23 09:45 NM (Rec: 09/11/23 16:09 NM [id number]) Manual Assessments Soft Tissue Assessment Soft Tissue Mobility Assessment Decreased B hamstring length. Tenderness of B paraspinals, Joint Mobility Assessment Joint Mobility Assessment Decreased lumbar lordosis. Decreased mobility with P-A springing along lumbar and thoracic spine. Midline tenderness at thoracic spine near T7; tenderness slightly lateral to spine at L4-S1. PT-OP-G Mobility & Gait Start: 09/11/23 09:44 Freq: Status: Active Protocol: Document 09/11/23 09:45 NM (Rec: 09/11/23 16:09 NM [id number]) OP Gait Assessment Gait Gait Assistance Required: Independent Distance (Feet) 150 Gait Deviations General Gait Pattern Antalgic,Flexed Trunk Factors Limiting Gait Function Factors Limiting Gait Function Decreased Strength,Pain PT-OP-H Neuro Start: 09/11/23 09:44 Freq: Status: Active Protocol: Document 09/11/23 09:45 NM (Rec: 09/11/23 10:34 NM [id number]) Sensation Evaluation Comments Summary Comments BLE equally intact to light touch sensation Deep Tendon Reflex & Clonus Assessment Deep Tendon Reflex Bilateral Patellar Deep Tendon Reflex 2+ Normal PT-OP-J Posture/Palpation/Skin Start: 09/11/23 09:44 Freq: Status: Active Protocol: Document 09/11/23 09:45 NM (Rec: 09/11/23 16:09 NM [id number]) Posture Evaluation Position Standing Head/C-Spine Posture Forward Head T-Spine Posture Flattened L-Spine Posture Decreased Lordosis Pelvis Posture Posterior Tilted Weight Distribution Balanced Hip Posture (L) Externally Rotated,(R) Externally Rotated Palpation Assessment Location back Palpation Findings Soft Tissue Tightness,Muscle Guarding,Tenderness Palpation Details Tenderness: T7, L4-L5, S1-2. Soft tissue tightness of B paraspinals, QL. Mid-thoracic and lower lumbar spine most tender, demos muscle guarding but no spasms PT-OP-K Range of Motion Start: 09/11/23 09:44 Freq: Status: Active Protocol: Document 10/09/23 10:33 NM (Rec: 10/09/23 11:45 NM [id number]) Lumbar Spine Range of Motion Lumbar Spine Active Percentage Flexion 85 Extension 50 Rotation Left 8 Rotation Right 2 Lateral Flexion Left 75 Lateral Flexion Right 50 ROM Limitations Soft Tissue Tightness Comments soreness with ext, B SB, rotation 10/09/23: 3 from floor with cue for leg straight, 60% for R lateral flexion PT-OP-L Special Tests Start: 09/11/23 09:44 Freq: Status: Active Protocol: Document 09/11/23 09:45 NM (Rec: 09/11/23 10:34 NM [id number]) Special Tests Lumbar Spine Special Tests Plunkett/Quadrant Test Results + Comments local pain B, no radiation distraction Test Results + Comments reports relief of symptoms Straight Leg Raise Test Results + Comments right Slump Test Results - PT-OP-M Strength Start: 09/11/23 09:44 Freq: Status: Active Protocol: Document 10/09/23 10:33 NM (Rec: 10/09/23 11:45 NM [id number]) Trunk Strength Trunk Manual Muscle Testing Flexion 4+ Good+ Extension 4+ Good+ Rotation Left 4 Good Rotation Right 4 Good Lateral Flexion Left 4 Good Lateral Flexion Right 4 Good Comments Pain with resisted R lateral flexion, B rotation 10/09/23: 4/5, pain free PT-OP-Q Treatments Start: 09/11/23 09:44 Freq: Status: Active Protocol: Document 10/17/23 11:19 AB (Rec: 10/17/23 13:28 AB [id number]) Therapeutic Exercises Supine Exercises lower trunk rotation Reps/Minutes 2 min Comments verbal cues to perform in pain free range hamstring stretch from hooklying Reps/Minutes X2 each LE 60 seconds each Standing Exercises single leg lift Standing Exercise Name with UE support Reps/Minutes X10 Comments Verbal and visual cues lifts Side bilateral Resistance level one light blue band Reps/Minutes X10 Comments verbal and visual cues Therapeutic Activity Therapeutic Activity log roll Reps/Minutes multiple trials left and right side Comments Review of log rolling with verbal cues to increase knee flexion and for aligning shoulder and hip. Patient ed to perform as an exercise from the left and right side of the body. Manual Therapy Treatment Soft Tissue Mobilization lumbar spine Body Location paraspinals bilateral Mobilization Type Sustained Pressure Intensity/Depth Moderate Body Position Sidelying Comments pillow between knees, monitored for pain Self-Care/Home Management Treatment Activities Self-Care/Home Management Activities single leg lift with UE support added to HEP PT-OP-T Assessment and Plan Start: 09/11/23 09:44 Freq: Status: Active Protocol: Document 10/17/23 11:19 AB (Rec: 10/17/23 13:28 AB [id number]) Physical Therapy Assessment Goals Five Impairment HEP Short Term Goal (STG) Pt will report compliance with HEP at least 2-3x/wk in order to maximize progress made during PT sessions. 10/09/23: daily STG Duration 6 weeks Care Home Goal (LTG) Pt will report compliance with HEP at least 3x/wk in order to maintain progress and smoothly transition into independent exercise upon discharge from PT LTG Duration 12 weeks Four Impairment 20 STS in 30 seconds, 20 mat Short Term Goal (STG) Pt will be able to perform at least 10 bilateral squats without compensation and back pain <4/10 in order to demonstrate improved BLE and trunk strength for lifting, ADL, and activity 10/09/23: able to perform 10 squats with moderate cues to table, difficulty with coordinating squat & hip hinge STG Duration 6 weeks PROGRESSINg Care Home Goal (LTG) Pt will be able to perform >20 sit to stands in 30 seconds without compensation or back pain in order to demonstrate improved BLE and trunk strength for lifting, ADL, and activity LTG Duration 12 weeks Three Impairment strength/stabilization Impairment B lateral flexion/rotation strength 4/5 Short Term Goal (STG) Pt will improve global trunk strength to at least 5/5 in order to demonstrate improved stability and core bracing during ADLs/activity tolerance 10/09/23: 5/5, improved stabilization STG Duration 6 weeks MET Care Home Goal (LTG) Pt will be able to lift at least 10# from a low surface with good core bracing and body mechanics with back pain <4/10 in order demonstrate improved trunk strength during ADLs/activity tolerance LTG Duration 12 weeks Two Impairment strength Impairment BLE hip strength 4-/5 to 4/5 Short Term Goal (STG) Pt will improve B hip flexion, abduction, and extension strength to at least 4/5 MMT in order to demonstrate increased BLE strength required for gait, ADLs 10/09/23: 4/5 bilaterally STG Duration 6 weeks MET Orthopedic Physical Therapist Goal (LTG) Pt will improve B hip flexion, abduction, and extension strength to at least 4+/5 MMT in order to demonstrate increased BLE strength required for gait, ADLs LTG Duration 12 weeks One Impairment oswestry Impairment score 9/50 Short Term Goal (STG) Pt will decrease oswestry score <9/50 points in order to demonstrate improved activity tolerance, pain management, and QOL 10/09/23: 4/50 STG Duration 6 weeks MET Orthopedic Physical Therapist Goal (LTG) Pt will decrease oswestry score <5/50 points in order to demonstrate improved activity tolerance, pain management, and QOL 10/09/23: 4/50 LTG Duration 12 weeks MET Assessment Summary Assessment Patient comments that he certainly feels like he had a workout end of session. Improved form for lift when performed with band under feet. Physical Therapy Plan Next Visit Focus/Plan Next Visit Plan Next session: Review squat and deadlift, leg press/LAQ, hip 3 way vs side steps and step ups, functional core, picking up objects from floor, HS flexibility Manual: STM only POC: progress into flexion bias for core/lumbar strengthening, hip strengthening
--- NOTE | 2023-10-20 12:27 | PT.OTN ---
Current Diagnoses Low back pain, unspecified (10/20/23) Weakness (10/20/23) Physical Therapy Treatment Note PT-OP-A Visit Information Start: 09/11/23 09:44 Freq: Status: Active Protocol: Document 10/20/23 10:33 AB (Rec: 10/20/23 12:27 AB [id number]) Out-Patient Physical Therapy Visit Information Visit Information Visit Type Treatment Note Visit Note Access Code: [email or web address] 09/19 for PN Visit Start Time 11:18 Visit Stop Time 12:01 Visit Number 10 Number of BARGE MASTER Visits 2 Evaluation Information Evaluation Date 09/11/23 Precautions Precautions Hx of thoracic and lumbar stress fractures PT-OP-B Current Condition Start: 09/11/23 09:44 Freq: Status: Active Protocol: Document 09/11/23 09:45 NM (Rec: 09/11/23 10:34 NM [id number]) Current Condition History of Current Condition Onset Date 3 weeks ago Current Complaints pain, decreased activity History of Current Condition Pt presents with low back pain after doing yard work. He was shoveling sand/mulch for 3 hours into a wheelbarrow (to L >R), which over did it. He had immediately increased soreness pain after that day, commonly flared with physical activity now. Reports restricting motions, very easily flared. Pt has hx of stress fracture (T5,7) in spine from from lifting/ carry 75# crate, previous L shoulder injury from fall ( rotator cuff tear) in 2021. Recent lumbar spine imaging reveals no fractures but degenerative disc disease L4-5 and L5-S1. Pt states he has not numbness/tingling, no changes in sensation. 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 Sit to stand with bilateral LE in ER quad dominant pattern. AROM lacking 24 deg bilateral hamstrings measured 90/90 position PT-OP-E Functional Tests Start: 09/11/23 09:44 Freq: Status: Active Protocol: Document 09/11/23 09:45 NM (Rec: 09/11/23 16:09 NM [id number]) Functional Tests 30 Second Sit to Stand Test Score 20 Comments pain free, valgus, fatiguing , feels pull/stretch Other Forward trunk flexion test Name of Test measured finger to floor Score 4 Comment cued knee ext due to hamstring length, no pain but stretch PT-OP-F Manual Assessment Start: 09/11/23 09:44 Freq: Status: Active Protocol: Document 09/11/23 09:45 NM (Rec: 09/11/23 16:09 NM [id number]) Manual Assessments Soft Tissue Assessment Soft Tissue Mobility Assessment Decreased B hamstring length. Tenderness of B paraspinals, Joint Mobility Assessment Joint Mobility Assessment Decreased lumbar lordosis. Decreased mobility with P-A springing along lumbar and thoracic spine. Midline tenderness at thoracic spine near T7; tenderness slightly lateral to spine at L4-S1. PT-OP-G Mobility & Gait Start: 09/11/23 09:44 Freq: Status: Active Protocol: Document 09/11/23 09:45 NM (Rec: 09/11/23 16:09 NM [id number]) OP Gait Assessment Gait Gait Assistance Required: Independent Distance (Feet) 150 Gait Deviations General Gait Pattern Antalgic,Flexed Trunk Factors Limiting Gait Function Factors Limiting Gait Function Decreased Strength,Pain PT-OP-H Neuro Start: 09/11/23 09:44 Freq: Status: Active Protocol: Document 09/11/23 09:45 NM (Rec: 09/11/23 10:34 NM [id number]) Sensation Evaluation Comments Summary Comments BLE equally intact to light touch sensation Deep Tendon Reflex & Clonus Assessment Deep Tendon Reflex Bilateral Patellar Deep Tendon Reflex 2+ Normal PT-OP-J Posture/Palpation/Skin Start: 09/11/23 09:44 Freq: Status: Active Protocol: Document 09/11/23 09:45 NM (Rec: 09/11/23 16:09 NM [id number]) Posture Evaluation Position Standing Head/C-Spine Posture Forward Head T-Spine Posture Flattened L-Spine Posture Decreased Lordosis Pelvis Posture Posterior Tilted Weight Distribution Balanced Hip Posture (L) Externally Rotated,(R) Externally Rotated Palpation Assessment Location back Palpation Findings Soft Tissue Tightness,Muscle Guarding,Tenderness Palpation Details Tenderness: T7, L4-L5, S1-2. Soft tissue tightness of B paraspinals, QL. Mid-thoracic and lower lumbar spine most tender, demos muscle guarding but no spasms PT-OP-K Range of Motion Start: 09/11/23 09:44 Freq: Status: Active Protocol: Document 10/09/23 10:33 NM (Rec: 10/09/23 11:45 NM [id number]) Lumbar Spine Range of Motion Lumbar Spine Active Percentage Flexion 85 Extension 50 Rotation Left 8 Rotation Right 2 Lateral Flexion Left 75 Lateral Flexion Right 50 ROM Limitations Soft Tissue Tightness Comments soreness with ext, B SB, rotation 10/09/23: 3 from floor with cue for leg straight, 60% for R lateral flexion PT-OP-L Special Tests Start: 09/11/23 09:44 Freq: Status: Active Protocol: Document 09/11/23 09:45 NM (Rec: 09/11/23 10:34 NM [id number]) Special Tests Lumbar Spine Special Tests Plunkett/Quadrant Test Results + Comments local pain B, no radiation distraction Test Results + Comments reports relief of symptoms Straight Leg Raise Test Results + Comments right Slump Test Results - PT-OP-M Strength Start: 09/11/23 09:44 Freq: Status: Active Protocol: Document 10/09/23 10:33 NM (Rec: 10/09/23 11:45 NM [id number]) Trunk Strength Trunk Manual Muscle Testing Flexion 4+ Good+ Extension 4+ Good+ Rotation Left 4 Good Rotation Right 4 Good Lateral Flexion Left 4 Good Lateral Flexion Right 4 Good Comments Pain with resisted R lateral flexion, B rotation 10/09/23: 4/5, pain free PT-OP-Q Treatments Start: 09/11/23 09:44 Freq: Status: Active Protocol: Document 10/20/23 10:33 AB (Rec: 10/20/23 12:27 AB [id number]) Therapeutic Exercises Supine Exercises hamstring stretch from hooklying Reps/Minutes X2 each LE 60 seconds each Standing Exercises lifts Side bilateral Resistance level one light blue band Reps/Minutes X10 X2 Comments verbal and visual cues Therapeutic Activity Therapeutic Activity sit to stand Reps/Minutes X20 and X 3 Comments Patient ed mechanics of sit to stand with use of spine model , use of self tactile cues for hip hinge, from mat, webbed chair and 16.5 inch seat height. Manual Therapy Treatment Soft Tissue Mobilization hamstrings Body Location bilateral hamstrings Mobilization Type Cross-Friction Intensity/Depth Moderate Body Position Sidelying Comments prior to stretch lumbar spine Body Location paraspinals bilateral Mobilization Type Sustained Pressure Intensity/Depth Moderate Body Position Sidelying Comments pillow between knees, monitored for pain PT-OP-T Assessment and Plan Start: 09/11/23 09:44 Freq: Status: Active Protocol: Document 10/20/23 10:33 AB (Rec: 10/20/23 12:27 AB [id number]) Physical Therapy Assessment Goals Five Impairment HEP Short Term Goal (STG) Pt will report compliance with HEP at least 2-3x/wk in order to maximize progress made during PT sessions. 10/09/23: daily STG Duration 6 weeks Assisted Goal (LTG) Pt will report compliance with HEP at least 3x/wk in order to maintain progress and smoothly transition into independent exercise upon discharge from PT LTG Duration 12 weeks Four Impairment 20 STS in 30 seconds, 20 mat Short Term Goal (STG) Pt will be able to perform at least 10 bilateral squats without compensation and back pain <4/10 in order to demonstrate improved BLE and trunk strength for lifting, ADL, and activity 10/09/23: able to perform 10 squats with moderate cues to table, difficulty with coordinating squat & hip hinge STG Duration 6 weeks PROGRESSINg Mva Reactor Operator Goal (LTG) Pt will be able to perform >20 sit to stands in 30 seconds without compensation or back pain in order to demonstrate improved BLE and trunk strength for lifting, ADL, and activity LTG Duration 12 weeks Three Impairment strength/stabilization Impairment B lateral flexion/rotation strength 4/5 Short Term Goal (STG) Pt will improve global trunk strength to at least 5/5 in order to demonstrate improved stability and core bracing during ADLs/activity tolerance 4/29/24: 5/5, improved stabilization STG Duration 6 weeks MET Assisted Goal (LTG) Pt will be able to lift at least 10# from a low surface with good core bracing and body mechanics with back pain <4/10 in order demonstrate improved trunk strength during ADLs/activity tolerance LTG Duration 12 weeks Two Impairment strength Impairment BLE hip strength 4-/5 to 4/5 Short Term Goal (STG) Pt will improve B hip flexion, abduction, and extension strength to at least 4/5 MMT in order to demonstrate increased BLE strength required for gait, ADLs 10/09/23: 4/5 bilaterally STG Duration 6 weeks MET Mva Reactor Operator Goal (LTG) Pt will improve B hip flexion, abduction, and extension strength to at least 4+/5 MMT in order to demonstrate increased BLE strength required for gait, ADLs LTG Duration 12 weeks One Impairment oswestry Impairment score 9/50 Short Term Goal (STG) Pt will decrease oswestry score <9/50 points in order to demonstrate improved activity tolerance, pain management, and QOL 10/09/23: 4/50 STG Duration 6 weeks MET Assisted Goal (LTG) Pt will decrease oswestry score <5/50 points in order to demonstrate improved activity tolerance, pain management, and QOL 10/09/23: 4/50 LTG Duration 12 weeks MET Assessment Summary Assessment Patient reports feeling better end of session, able to transfer sit to stand with improved hip hinge and into session with increased hamstring length compared to start of session 10/13/2023. Pt continues to initiate supine to sit with a sit up vs roll. Physical Therapy Plan Frequency and Duration Frequency of Treatment 2x/Week Duration of treatment (weeks) 12 Plan of Care Start Date 09/11/23 Plan of Care End Date 12/08/23 Next Visit Focus/Plan Next Note Type Treatment Note Next Visit Plan Next session: Review squat and deadlift, leg press/LAQ, hip 3 way vs side steps and step ups, functional core, picking up objects from floor, HS flexibility Manual: STM only POC: progress into flexion bias for core/lumbar strengthening, hip strengthening/review and progress Pallof press
--- NOTE | 2023-10-23 12:52 | PT.OTN ---
Current Diagnoses Low back pain, unspecified (10/23/23) Weakness (10/23/23) Physical Therapy Treatment Note PT-OP-A Visit Information Start: 09/11/23 09:44 Freq: Status: Active Protocol: Document 10/23/23 11:22 NM (Rec: 10/23/23 12:18 NM [id number]) Out-Patient Physical Therapy Visit Information Visit Information Visit Type Treatment Note Visit Note 08/19 post PN Visit Start Time 11:20 Visit Stop Time 12:00 Visit Number 11 Evaluation Information Evaluation Date 09/11/23 PT-OP-B Current Condition Start: 09/11/23 09:44 Freq: Status: Active Protocol: Document 09/11/23 09:45 NM (Rec: 09/11/23 10:34 NM [id number]) Current Condition History of Current Condition Onset Date 3 weeks ago Current Complaints pain, decreased activity History of Current Condition Pt presents with low back pain after doing yard work. He was shoveling sand/mulch for 3 hours into a wheelbarrow (to L >R), which over did it. He had immediately increased soreness pain after that day, commonly flared with physical activity now. Reports restricting motions, very easily flared. Pt has hx of stress fracture (T5,7) in spine from from lifting/ carry 75# crate, previous L shoulder injury from fall ( rotator cuff tear) in 2021. Recent lumbar spine imaging reveals no fractures but degenerative disc disease L4-5 and L5-S1. Pt states he has not numbness/tingling, no changes in sensation. 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 States HEP is going well, performs 2-3x/wk in addition to PT. Reports that he feels sessions are going well, states felt good after last sessions jaylene with body mechanics. He continues to feel like he is wanting his spine to feel healthy PT-OP-E Functional Tests Start: 09/11/23 09:44 Freq: Status: Active Protocol: Document 09/11/23 09:45 NM (Rec: 09/11/23 16:09 NM [id number]) Functional Tests 30 Second Sit to Stand Test Score 20 Comments pain free, valgus, fatiguing , feels pull/stretch Other Forward trunk flexion test Name of Test measured finger to floor Score 4 Comment cued knee ext due to hamstring length, no pain but stretch PT-OP-F Manual Assessment Start: 09/11/23 09:44 Freq: Status: Active Protocol: Document 09/11/23 09:45 NM (Rec: 09/11/23 16:09 NM [id number]) Manual Assessments Soft Tissue Assessment Soft Tissue Mobility Assessment Decreased B hamstring length. Tenderness of B paraspinals, Joint Mobility Assessment Joint Mobility Assessment Decreased lumbar lordosis. Decreased mobility with P-A springing along lumbar and thoracic spine. Midline tenderness at thoracic spine near T7; tenderness slightly lateral to spine at L4-S1. PT-OP-G Mobility & Gait Start: 09/11/23 09:44 Freq: Status: Active Protocol: Document 09/11/23 09:45 NM (Rec: 09/11/23 16:09 NM [id number]) OP Gait Assessment Gait Gait Assistance Required: Independent Distance (Feet) 150 Gait Deviations General Gait Pattern Antalgic,Flexed Trunk Factors Limiting Gait Function Factors Limiting Gait Function Decreased Strength,Pain PT-OP-H Neuro Start: 09/11/23 09:44 Freq: Status: Active Protocol: Document 09/11/23 09:45 NM (Rec: 09/11/23 10:34 NM [id number]) Sensation Evaluation Comments Summary Comments BLE equally intact to light touch sensation Deep Tendon Reflex & Clonus Assessment Deep Tendon Reflex Bilateral Patellar Deep Tendon Reflex 2+ Normal PT-OP-J Posture/Palpation/Skin Start: 09/11/23 09:44 Freq: Status: Active Protocol: Document 09/11/23 09:45 NM (Rec: 09/11/23 16:09 NM [id number]) Posture Evaluation Position Standing Head/C-Spine Posture Forward Head T-Spine Posture Flattened L-Spine Posture Decreased Lordosis Pelvis Posture Posterior Tilted Weight Distribution Balanced Hip Posture (L) Externally Rotated,(R) Externally Rotated Palpation Assessment Location back Palpation Findings Soft Tissue Tightness,Muscle Guarding,Tenderness Palpation Details Tenderness: T7, L4-L5, S1-2. Soft tissue tightness of B paraspinals, QL. Mid-thoracic and lower lumbar spine most tender, demos muscle guarding but no spasms PT-OP-K Range of Motion Start: 09/11/23 09:44 Freq: Status: Active Protocol: Document 10/09/23 10:33 NM (Rec: 10/09/23 11:45 NM [id number]) Lumbar Spine Range of Motion Lumbar Spine Active Percentage Flexion 85 Extension 50 Rotation Left 8 Rotation Right 2 Lateral Flexion Left 75 Lateral Flexion Right 50 ROM Limitations Soft Tissue Tightness Comments soreness with ext, B SB, rotation 10/09/23: 3 from floor with cue for leg straight, 60% for R lateral flexion PT-OP-L Special Tests Start: 09/11/23 09:44 Freq: Status: Active Protocol: Document 09/11/23 09:45 NM (Rec: 09/11/23 10:34 NM [id number]) Special Tests Lumbar Spine Special Tests Plunkett/Quadrant Test Results + Comments local pain B, no radiation distraction Test Results + Comments reports relief of symptoms Straight Leg Raise Test Results + Comments right Slump Test Results - PT-OP-M Strength Start: 09/11/23 09:44 Freq: Status: Active Protocol: Document 10/09/23 10:33 NM (Rec: 10/09/23 11:45 NM [id number]) Trunk Strength Trunk Manual Muscle Testing Flexion 4+ Good+ Extension 4+ Good+ Rotation Left 4 Good Rotation Right 4 Good Lateral Flexion Left 4 Good Lateral Flexion Right 4 Good Comments Pain with resisted R lateral flexion, B rotation 10/09/23: 4/5, pain free PT-OP-Q Treatments Start: 09/11/23 09:44 Freq: Status: Active Protocol: Document 10/23/23 11:22 NM (Rec: 10/23/23 12:18 NM [id number]) Gym Equipment Shuttle Recovery B squat Details cued TKE w/o locking, no knee valgus Resistance 75# (3 navy) Reps/Time 2x15 Therapeutic Exercises Supine Exercises hamstring stretch from hooklying Side bilateral Reps/Minutes 1x60 Comments pain free; post manual treatment Standing Exercises single leg lift Standing Exercise Name staggered stance RDL Side bilateral Resistance 5# db Reps/Minutes 1x10 Comments cues for form, execution; diff coord hip hinge, pain free lifts Side bilateral Resistance lvl 1 band for form > lvl 2 band Reps/Minutes 1x10 ea band Comments verbal cues for form, core bracing Pallof press Standing Exercise Name arms extended with rotation Resistance lvl 3 Equipment Used staggered stance Reps/Minutes 2x10 ea Comments cued keep arms align w/ belly button, pain free in back Manual Therapy Treatment Soft Tissue Mobilization hamstrings Body Location bilateral hamstrings Mobilization Type Cross-Friction Intensity/Depth Moderate Body Position Sidelying Comments Increased tightness, performed prior to stretching lumbar spine Body Location paraspinals bilateral Mobilization Type Sustained Pressure Intensity/Depth Moderate Body Position Sidelying Comments Pillow between knees. L > R tighteness but pain free PT-OP-T Assessment and Plan Start: 09/11/23 09:44 Freq: Status: Active Protocol: Document 10/23/23 11:22 NM (Rec: 10/23/23 12:18 NM [id number]) Physical Therapy Assessment Goals Five Impairment HEP Short Term Goal (STG) Pt will report compliance with HEP at least 2-3x/wk in order to maximize progress made during PT sessions. 10/09/23: daily STG Duration 6 weeks Snf Goal (LTG) Pt will report compliance with HEP at least 3x/wk in order to maintain progress and smoothly transition into independent exercise upon discharge from PT LTG Duration 12 weeks Four Impairment 20 STS in 30 seconds, 20 mat Short Term Goal (STG) Pt will be able to perform at least 10 bilateral squats without compensation and back pain <4/10 in order to demonstrate improved BLE and trunk strength for lifting, ADL, and activity 10/09/23: able to perform 10 squats with moderate cues to table, difficulty with coordinating squat & hip hinge STG Duration 6 weeks PROGRESSINg Snf Goal (LTG) Pt will be able to perform >20 sit to stands in 30 seconds without compensation or back pain in order to demonstrate improved BLE and trunk strength for lifting, ADL, and activity LTG Duration 12 weeks Three Impairment strength/stabilization Impairment B lateral flexion/rotation strength 4/5 Short Term Goal (STG) Pt will improve global trunk strength to at least 5/5 in order to demonstrate improved stability and core bracing during ADLs/activity tolerance 10/09/23: 5/5, improved stabilization STG Duration 6 weeks MET Personnel Security Assistant Goal (LTG) Pt will be able to lift at least 10# from a low surface with good core bracing and body mechanics with back pain <4/10 in order demonstrate improved trunk strength during ADLs/activity tolerance LTG Duration 12 weeks Two Impairment strength Impairment BLE hip strength 4-/5 to 4/5 Short Term Goal (STG) Pt will improve B hip flexion, abduction, and extension strength to at least 4/5 MMT in order to demonstrate increased BLE strength required for gait, ADLs 10/09/23: 4/5 bilaterally STG Duration 6 weeks MET Snf Goal (LTG) Pt will improve B hip flexion, abduction, and extension strength to at least 4+/5 MMT in order to demonstrate increased BLE strength required for gait, ADLs LTG Duration 12 weeks One Impairment oswestry Impairment score 9/50 Short Term Goal (STG) Pt will decrease oswestry score <9/50 points in order to demonstrate improved activity tolerance, pain management, and QOL 10/09/23: 4/50 STG Duration 6 weeks MET Snf Goal (LTG) Pt will decrease oswestry score <5/50 points in order to demonstrate improved activity tolerance, pain management, and QOL 10/09/23: 4/50 LTG Duration 12 weeks MET Assessment Summary Assessment Pt tolerated session well. Emphasis on lumbar/glute strengthening and body mechanics training for pain reduction with ADLs. Pt continues to have difficulty with coordinating hip hinge and attempts to compensate with extraneous movements despite verbal/visual and tactile cues. Progressed to level 2 banded deadlifts and initiated staggered stance RDLs for improved stability/ deadlift progression as part of body mechanics training. Progressed pallof press to include standing rotation away from resistance. Pt tolerated well without any increased pain. Manual treatment to improve soft tissue length, promote muscle relaxation. Continues to have limited hamstring length and occasional paraspinal spasms. Pt planning to follow up for regular check up with PCP this week; PT recommended pt bring up spasms with PCP and continued spine tenderness that is unchanged since IE. Pt would benefit from skilled PT for continued lumbar and core strengthening in addition to body mechanics training in order to Physical Therapy Plan Frequency and Duration Frequency of Treatment 2x/Week Duration of treatment (weeks) 12 Plan of Care Start Date 09/11/23 Plan of Care End Date 12/08/23 Therapeutic Interventions Therapeutic Interventions Aquatic Therapy,Balance Training,Coordination Training ,Gait Training,Home Exercise Program,Joint Mobilizations, Manual Therapy,Neuromuscular Re-education,Orthotic/ Prosthetic Management,Patient/ Caregiver Education,Self-Care/ Home Management,Sensory Integration,Soft Tissue Mobilization,Taping, Therapeutic Activities, Therapeutic Exercises Modalities Biofeedback,Cold Pack/Ice Massage,Electric Stimulation, Hot Packs,Traction- Mechanical ,Ultrasound,Vasopneumatic Devices Other Therapeutic Interventions No thoracic spine mobilizations Other Referrals/Consults Referrals/Consults Recommended Due to pt PMH of thoracic stress fractures, would benefit from additional imaging to clear thoracic spine Next Visit Focus/Plan Next Note Type Treatment Note Next Visit Plan Next session: Squat with press and deadlift, carries, leg press/LAQ, step ups with carries (resisted), functional core, picking up objects from floor, HS flexibility Manual: STM only POC: progress into flexion bias for core/lumbar strengthening, hip strengthening/review and progress Pallof press
--- NOTE | 2023-10-25 12:56 | PT.OTN ---
Current Diagnoses Low back pain, unspecified (10/25/23) Weakness (10/25/23) Physical Therapy Treatment Note PT-OP-A Visit Information Start: 09/11/23 09:44 Freq: Status: Active Protocol: Document 10/25/23 09:38 AB (Rec: 10/25/23 12:55 AB [id number]) Out-Patient Physical Therapy Visit Information Visit Information Visit Type Treatment Note Visit Note Access Code: [email or web address] 11/19 for PN Visit Start Time 11:18 Visit Stop Time 12:02 Visit Number 12 Number of CONCRETE ENGINEER Visits 1 Evaluation Information Evaluation Date 09/11/23 Precautions Precautions Hx of thoracic and lumbar stress fractures PT-OP-B Current Condition Start: 09/11/23 09:44 Freq: Status: Active Protocol: Document 09/11/23 09:45 NM (Rec: 09/11/23 10:34 NM [id number]) Current Condition History of Current Condition Onset Date 3 weeks ago Current Complaints pain, decreased activity History of Current Condition Pt presents with low back pain after doing yard work. He was shoveling sand/mulch for 3 hours into a wheelbarrow (to L >R), which over did it. He had immediately increased soreness pain after that day, commonly flared with physical activity now. Reports restricting motions, very easily flared. Pt has hx of stress fracture (T5,7) in spine from from lifting/ carry 75# crate, previous L shoulder injury from fall ( rotator cuff tear) in 2021. Recent lumbar spine imaging reveals no fractures but degenerative disc disease L4-5 and L5-S1. Pt states he has not numbness/tingling, no changes in sensation. 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 Patient comments during session that he cannot sleep on his back as it impacts his breathing. Patient advised to make MD aware. PT-OP-E Functional Tests Start: 09/11/23 09:44 Freq: Status: Active Protocol: Document 09/11/23 09:45 NM (Rec: 09/11/23 16:09 NM [id number]) Functional Tests 30 Second Sit to Stand Test Score 20 Comments pain free, valgus, fatiguing , feels pull/stretch Other Forward trunk flexion test Name of Test measured finger to floor Score 4 Comment cued knee ext due to hamstring length, no pain but stretch PT-OP-F Manual Assessment Start: 09/11/23 09:44 Freq: Status: Active Protocol: Document 09/11/23 09:45 NM (Rec: 09/11/23 16:09 NM [id number]) Manual Assessments Soft Tissue Assessment Soft Tissue Mobility Assessment Decreased B hamstring length. Tenderness of B paraspinals, Joint Mobility Assessment Joint Mobility Assessment Decreased lumbar lordosis. Decreased mobility with P-A springing along lumbar and thoracic spine. Midline tenderness at thoracic spine near T7; tenderness slightly lateral to spine at L4-S1. PT-OP-G Mobility & Gait Start: 09/11/23 09:44 Freq: Status: Active Protocol: Document 09/11/23 09:45 NM (Rec: 09/11/23 16:09 NM [id number]) OP Gait Assessment Gait Gait Assistance Required: Independent Distance (Feet) 150 Gait Deviations General Gait Pattern Antalgic,Flexed Trunk Factors Limiting Gait Function Factors Limiting Gait Function Decreased Strength,Pain PT-OP-H Neuro Start: 09/11/23 09:44 Freq: Status: Active Protocol: Document 09/11/23 09:45 NM (Rec: 09/11/23 10:34 NM [id number]) Sensation Evaluation Comments Summary Comments BLE equally intact to light touch sensation Deep Tendon Reflex & Clonus Assessment Deep Tendon Reflex Bilateral Patellar Deep Tendon Reflex 2+ Normal PT-OP-J Posture/Palpation/Skin Start: 09/11/23 09:44 Freq: Status: Active Protocol: Document 09/11/23 09:45 NM (Rec: 09/11/23 16:09 NM [id number]) Posture Evaluation Position Standing Head/C-Spine Posture Forward Head T-Spine Posture Flattened L-Spine Posture Decreased Lordosis Pelvis Posture Posterior Tilted Weight Distribution Balanced Hip Posture (L) Externally Rotated,(R) Externally Rotated Palpation Assessment Location back Palpation Findings Soft Tissue Tightness,Muscle Guarding,Tenderness Palpation Details Tenderness: T7, L4-L5, S1-2. Soft tissue tightness of B paraspinals, QL. Mid-thoracic and lower lumbar spine most tender, demos muscle guarding but no spasms PT-OP-K Range of Motion Start: 09/11/23 09:44 Freq: Status: Active Protocol: Document 10/09/23 10:33 NM (Rec: 10/09/23 11:45 NM [id number]) Lumbar Spine Range of Motion Lumbar Spine Active Percentage Flexion 85 Extension 50 Rotation Left 8 Rotation Right 2 Lateral Flexion Left 75 Lateral Flexion Right 50 ROM Limitations Soft Tissue Tightness Comments soreness with ext, B SB, rotation 10/09/23: 3 from floor with cue for leg straight, 60% for R lateral flexion PT-OP-L Special Tests Start: 09/11/23 09:44 Freq: Status: Active Protocol: Document 09/11/23 09:45 NM (Rec: 09/11/23 10:34 NM [id number]) Special Tests Lumbar Spine Special Tests Plunkett/Quadrant Test Results + Comments local pain B, no radiation distraction Test Results + Comments reports relief of symptoms Straight Leg Raise Test Results + Comments right Slump Test Results - PT-OP-M Strength Start: 09/11/23 09:44 Freq: Status: Active Protocol: Document 10/09/23 10:33 NM (Rec: 10/09/23 11:45 NM [id number]) Trunk Strength Trunk Manual Muscle Testing Flexion 4+ Good+ Extension 4+ Good+ Rotation Left 4 Good Rotation Right 4 Good Lateral Flexion Left 4 Good Lateral Flexion Right 4 Good Comments Pain with resisted R lateral flexion, B rotation 10/09/23: 4/5, pain free PT-OP-Q Treatments Start: 09/11/23 09:44 Freq: Status: Active Protocol: Document 10/25/23 09:38 AB (Rec: 10/25/23 12:55 AB [id number]) Therapeutic Exercises Supine Exercises lower trunk rotation Supine Exercise Name Pt ed to perform when lying on floor prior to initiating exercises Reps/Minutes 2 min Comments verbal cues to perform in pain free range hamstring stretch from hooklying Side bilateral Reps/Minutes 2x60 Comments pain free; post manual treatment Sitting Exercises pelvic tilts Sitting Exercise Name PPT and ant PT seated PPT hooklying Side bilateral Reps/Minutes X5, also PPT hooklyng with tactile cues Comments Verbal cues to perform in pain free range Standing Exercises torrez carry Side bilateral Equipment Used 5 lb each UE Reps/Minutes 2 min Comments verbal cues for posture squat Standing Exercise Name AROM squats to chair Side bilateral Resistance level 3 green band Reps/Minutes X10 X 2 with press 2 and 3 lb each UE the 5lb each UE without press Manual Therapy Treatment Soft Tissue Mobilization hamstrings Body Location bilateral hamstrings Mobilization Type Cross-Friction Intensity/Depth Moderate Body Position Sidelying Comments Increased tightness, performed prior to stretching lumbar spine Body Location paraspinals bilateral Mobilization Type Sustained Pressure Intensity/Depth Moderate Body Position Sidelying Comments Pillow between knees. L > R tighteness but pain free PT-OP-T Assessment and Plan Start: 09/11/23 09:44 Freq: Status: Active Protocol: Document 10/25/23 09:38 (Rec: 10/25/23 12:55 AB [id number]) Physical Therapy Assessment Goals Five Impairment HEP Short Term Goal (STG) Pt will report compliance with HEP at least 2-3x/wk in order to maximize progress made during PT sessions. 10/09/23: daily STG Duration 6 weeks Tube Laser Operator Goal (LTG) Pt will report compliance with HEP at least 3x/wk in order to maintain progress and smoothly transition into independent exercise upon discharge from PT LTG Duration 12 weeks Four Impairment 20 STS in 30 seconds, 20 mat Short Term Goal (STG) Pt will be able to perform at least 10 bilateral squats without compensation and back pain <4/10 in order to demonstrate improved BLE and trunk strength for lifting, ADL, and activity 10/09/23: able to perform 10 squats with moderate cues to table, difficulty with coordinating squat & hip hinge STG Duration 6 weeks PROGRESSINg Tube Laser Operator Goal (LTG) Pt will be able to perform >20 sit to stands in 30 seconds without compensation or back pain in order to demonstrate improved BLE and trunk strength for lifting, ADL, and activity LTG Duration 12 weeks Three Impairment strength/stabilization Impairment B lateral flexion/rotation strength 4/5 Short Term Goal (STG) Pt will improve global trunk strength to at least 5/5 in order to demonstrate improved stability and core bracing during ADLs/activity tolerance 10/09/23: 5/5, improved stabilization STG Duration 6 weeks MET Fdc Goal (LTG) Pt will be able to lift at least 10# from a low surface with good core bracing and body mechanics with back pain <4/10 in order demonstrate improved trunk strength during ADLs/activity tolerance LTG Duration 12 weeks Two Impairment strength Impairment BLE hip strength 4-/5 to 4/5 Short Term Goal (STG) Pt will improve B hip flexion, abduction, and extension strength to at least 4/5 MMT in order to demonstrate increased BLE strength required for gait, ADLs 10/09/23: 4/5 bilaterally STG Duration 6 weeks MET Tube Laser Operator Goal (LTG) Pt will improve B hip flexion, abduction, and extension strength to at least 4+/5 MMT in order to demonstrate increased BLE strength required for gait, ADLs LTG Duration 12 weeks One Impairment oswestry Impairment score 9/50 Short Term Goal (STG) Pt will decrease oswestry score <9/50 points in order to demonstrate improved activity tolerance, pain management, and QOL 10/09/23: 4/50 STG Duration 6 weeks MET Tube Laser Operator Goal (LTG) Pt will decrease oswestry score <5/50 points in order to demonstrate improved activity tolerance, pain management, and QOL 10/09/23: 4/50 LTG Duration 12 weeks MET Assessment Summary Assessment Patient comments he is not sore now, but may be later. Increased verbal cues required for posture during torrez carry. Patient requests increased weight for squat with press. Physical Therapy Plan Frequency and Duration Frequency of Treatment 2x/Week Duration of treatment (weeks) 12 Plan of Care Start Date 09/11/23 Plan of Care End Date 12/08/23 Next Visit Focus/Plan Next Note Type Treatment Note Next Visit Plan Next session: Assess sunil to Squat with press and review/ progress deadlift, carries, leg press/LAQ, step ups with carries (resisted), functional core, picking up objects from floor, HS flexibility Manual: STM only POC: progress into flexion bias for core/lumbar strengthening, hip strengthening/review and progress Pallof press
--- NOTE | 2023-10-30 11:38 | PT-OP ANOTE ---
Bon into session with reports of performing pelvic tilts on Monday, then moving and reporting back seizing up. Upon further questioning comments it feels like T7 area, and similar to when he injured the thoracic area in the past. Patient demonstrates the posterior pelvic tilt combined with abdominal bracing, and has been made aware that this is not on his home exercise list. Patient with guarded movement positioning hooklying from sitting prior to demonstrate which exercise caused the problem (Posterior pelvic tilt )and guarded movement/grimacing when shifting positions on the mat. Patient advised to go to walk in clinic, and make MD aware of these new symptoms, and to not perform any of his HEP until he returns to physical therapy. Patient also made aware that he should discontinue performing pelvic tilts.
--- NOTE | 2023-11-01 12:49 | PT.OTN ---
Current Diagnoses Low back pain, unspecified (11/01/23) Weakness (11/01/23) Physical Therapy Treatment Note PT-OP-A Visit Information Start: 09/11/23 09:44 Freq: Status: Active Protocol: Document 11/01/23 11:19 NM (Rec: 11/01/23 12:09 NM [id number]) Out-Patient Physical Therapy Visit Information Visit Information Visit Type Progress Note Visit Note 11/19 for PN Visit Start Time 11:20 Visit Stop Time 12:00 Visit Number 13 Evaluation Information Evaluation Date 09/11/23 PT-OP-B Current Condition Start: 09/11/23 09:44 Freq: Status: Active Protocol: Document 09/11/23 09:45 NM (Rec: 09/11/23 10:34 NM [id number]) Current Condition History of Current Condition Onset Date 3 weeks ago Current Complaints pain, decreased activity History of Current Condition Pt presents with low back pain after doing yard work. He was shoveling sand/mulch for 3 hours into a wheelbarrow (to L >R), which over did it. He had immediately increased soreness pain after that day, commonly flared with physical activity now. Reports restricting motions, very easily flared. Pt has hx of stress fracture (T5,7) in spine from from lifting/ carry 75# crate, previous L shoulder injury from fall ( rotator cuff tear) in 2021. Recent lumbar spine imaging reveals no fractures but degenerative disc disease L4-5 and L5-S1. Pt states he has not numbness/tingling, no changes in sensation. 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 Xrays negative of T spine from earlier this week. Pt reports that he is making progress with PT, particularly with overall strength. Pt reports that he is still having some leftover pain from the incident last weekend, when he was performing a post pelvic tilt on the floor (this was an exercise that he used to do after his original injury several decades ago); largely resolved. Pt reports more aware of his body mechanics. He can sleep bilaterally now but reports that he only was able to sleep on his R side. PT-OP-E Functional Tests Start: 09/11/23 09:44 Freq: Status: Active Protocol: Document 09/11/23 09:45 NM (Rec: 09/11/23 16:09 NM [id number]) Functional Tests 30 Second Sit to Stand Test Score 20 Comments pain free, valgus, fatiguing , feels pull/stretch Other Forward trunk flexion test Name of Test measured finger to floor Score 4 Comment cued knee ext due to hamstring length, no pain but stretch PT-OP-F Manual Assessment Start: 09/11/23 09:44 Freq: Status: Active Protocol: Document 09/11/23 09:45 NM (Rec: 09/11/23 16:09 NM [id number]) Manual Assessments Soft Tissue Assessment Soft Tissue Mobility Assessment Decreased B hamstring length. Tenderness of B paraspinals, Joint Mobility Assessment Joint Mobility Assessment Decreased lumbar lordosis. Decreased mobility with P-A springing along lumbar and thoracic spine. Midline tenderness at thoracic spine near T7; tenderness slightly lateral to spine at L4-S1. PT-OP-G Mobility & Gait Start: 09/11/23 09:44 Freq: Status: Active Protocol: Document 09/11/23 09:45 NM (Rec: 09/11/23 16:09 NM [id number]) OP Gait Assessment Gait Gait Assistance Required: Independent Distance (Feet) 150 Gait Deviations General Gait Pattern Antalgic,Flexed Trunk Factors Limiting Gait Function Factors Limiting Gait Function Decreased Strength,Pain PT-OP-H Neuro Start: 09/11/23 09:44 Freq: Status: Active Protocol: Document 09/11/23 09:45 NM (Rec: 09/11/23 10:34 NM [id number]) Sensation Evaluation Comments Summary Comments BLE equally intact to light touch sensation Deep Tendon Reflex & Clonus Assessment Deep Tendon Reflex Bilateral Patellar Deep Tendon Reflex 2+ Normal PT-OP-J Posture/Palpation/Skin Start: 09/11/23 09:44 Freq: Status: Active Protocol: Document 09/11/23 09:45 NM (Rec: 09/11/23 16:09 NM [id number]) Posture Evaluation Position Standing Head/C-Spine Posture Forward Head T-Spine Posture Flattened L-Spine Posture Decreased Lordosis Pelvis Posture Posterior Tilted Weight Distribution Balanced Hip Posture (L) Externally Rotated,(R) Externally Rotated Palpation Assessment Location back Palpation Findings Soft Tissue Tightness,Muscle Guarding,Tenderness Palpation Details Tenderness: T7, L4-L5, S1-2. Soft tissue tightness of B paraspinals, QL. Mid-thoracic and lower lumbar spine most tender, demos muscle guarding but no spasms PT-OP-K Range of Motion Start: 09/11/23 09:44 Freq: Status: Active Protocol: Document 10/09/23 10:33 NM (Rec: 10/09/23 11:45 NM [id number]) Lumbar Spine Range of Motion Lumbar Spine Active Percentage Flexion 85 Extension 50 Rotation Left 8 Rotation Right 2 Lateral Flexion Left 75 Lateral Flexion Right 50 ROM Limitations Soft Tissue Tightness Comments soreness with ext, B SB, rotation 10/09/23: 3 from floor with cue for leg straight, 60% for R lateral flexion PT-OP-L Special Tests Start: 09/11/23 09:44 Freq: Status: Active Protocol: Document 09/11/23 09:45 NM (Rec: 09/11/23 10:34 NM [id number]) Special Tests Lumbar Spine Special Tests Plunkett/Quadrant Test Results + Comments local pain B, no radiation distraction Test Results + Comments reports relief of symptoms Straight Leg Raise Test Results + Comments right Slump Test Results - PT-OP-M Strength Start: 09/11/23 09:44 Freq: Status: Active Protocol: Document 10/09/23 10:33 NM (Rec: 10/09/23 11:45 NM [id number]) Trunk Strength Trunk Manual Muscle Testing Flexion 4+ Good+ Extension 4+ Good+ Rotation Left 4 Good Rotation Right 4 Good Lateral Flexion Left 4 Good Lateral Flexion Right 4 Good Comments Pain with resisted R lateral flexion, B rotation 10/09/23: 4/5, pain free PT-OP-Q Treatments Start: 09/11/23 09:44 Freq: Status: Active Protocol: Document 11/01/23 11:19 NM (Rec: 11/01/23 12:09 NM [id number]) Therapeutic Exercises Standing Exercises torrez carry Standing Exercise Name 1. torrez carry, 2. suitcase carry, 3. OH carry Side bilateral Resistance 5 # db ea hand> 10# ea hand Reps/Minutes 4x20 ft ea Comments cued upright posture; improved core/trunk stabilization single leg lift Standing Exercise Name 1. staggered stance RDL, 2. 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 AROM squat to chair, 2. 30 sec STS, 3. squat>OH lift Side bilateral Reps/Minutes 1. 1x10, 2. 19 total, 3. 1x15 w/ 5# wt Comments pain free; improved form; cued fluid motion during squat Self-Care/Home Management Treatment Education Patient Education Body Mechanics,Home Exercise Program,Joint Protection, Safety Other Education 8 minutes - Extensive education on body mechanics during exercise/yard work and during HEP. PT educated pt on discontinuing previous exercises provided by different PT from original injury several years ago (not recent injury) due to recurrence of sharp pain and poor tolerance afterward. PT-OP-T Assessment and Plan Start: 09/11/23 09:44 Freq: Status: Active Protocol: Document 11/01/23 11:19 NM (Rec: 11/01/23 12:09 NM [id number]) Physical Therapy Assessment Goals Five Impairment HEP Short Term Goal (STG) Pt will report compliance with HEP at least 2-3x/wk in order to maximize progress made during PT sessions. 10/09/23: daily STG Duration 6 weeks [employer] Goal (LTG) Pt will report compliance with HEP at least 3x/wk in order to maintain progress and smoothly transition into independent exercise upon discharge from PT 11/01/23: daily LTG Duration 12 weeks Four Impairment 20 STS in 30 seconds, 20 mat Short Term Goal (STG) Pt will be able to perform at least 10 bilateral squats without compensation and back pain <4/10 in order to demonstrate improved BLE and trunk strength for lifting, ADL, and activity 10/09/23: able to perform 10 squats with moderate cues to table, difficulty with coordinating squat & hip hinge 11/01/23: 10 squats with hip hinge to mesh chair w/o pain STG Duration 6 weeks MET [employer] Goal (LTG) Pt will be able to perform >20 sit to stands in 30 seconds without compensation or back pain in order to demonstrate improved BLE and trunk strength for lifting, ADL, and activity 11/01/23: 19 STS from mesh chair (18), no pain in low back LTG Duration 12 weeks PROGRESSING Three Impairment strength/stabilization Impairment B lateral flexion/rotation strength 4/5 Short Term Goal (STG) Pt will improve global trunk strength to at least 5/5 in order to demonstrate improved stability and core bracing during ADLs/activity tolerance 10/09/23: 5/5, improved stabilization STG Duration 6 weeks MET Mcc Goal (LTG) Pt will be able to lift at least 10# from a low surface with good core bracing and body mechanics with back pain <4/10 in order demonstrate improved trunk strength during ADLs/activity tolerance LTG Duration 12 weeks Two Impairment strength Impairment BLE hip strength 4-/5 to 4/5 Short Term Goal (STG) Pt will improve B hip flexion, abduction, and extension strength to at least 4/5 MMT in order to demonstrate increased BLE strength required for gait, ADLs 10/09/23: 4/5 bilaterally STG Duration 6 weeks MET [employer] Goal (LTG) Pt will improve B hip flexion, abduction, and extension strength to at least 4+/5 MMT in order to demonstrate increased BLE strength required for gait, ADLs 11/01/23: 4+/5 MMT for all LTG Duration 12 weeks MET One Impairment oswestry Impairment score 9/50 Short Term Goal (STG) Pt will decrease oswestry score <9/50 points in order to demonstrate improved activity tolerance, pain management, and QOL 10/09/23: 4/50 STG Duration 6 weeks MET Mcc Goal (LTG) Pt will decrease oswestry score <5/50 points in order to demonstrate improved activity tolerance, pain management, and QOL 10/09/23: 4/50 11/01/23: 5/50 LTG Duration 12 weeks MET Assessment Summary Assessment Pt tolerated session well and denies any back pain throughout session with any activity. Requires increased time with activity. Pt reports fatigue at end of session. Reviewed most recent HEP for correct form and compliance. Continued with trunk/core and BLE strengthening in order to promote functional strength for ADLs. Pt demos improved squat form to chair with cueing to sit back into chair , otherwise continues to perform motion segmentally. Progressed resistance during weighted carries, adding suitcase and unilateral overhead carries. Pt demos slight lateral trunk shift with overhead carries, reduced with verbal cues and visual feedback. Initiated use of staggered stance RDL for picking up objects from floor to simulate ADLs at home. Pt demos improved hip hinge but requires moderate cues to prevent upper trunk flexion when bending. Physical Therapy Plan Frequency and Duration Frequency of Treatment 2x/Week Duration of treatment (weeks) 12 Plan of Care Start Date 09/11/23 Plan of Care End Date 12/08/23 Therapeutic Interventions Therapeutic Interventions Aquatic Therapy,Balance Training,Coordination Training ,Gait Training,Home Exercise Program,Joint Mobilizations, Manual Therapy,Neuromuscular Re-education,Orthotic/ Prosthetic Management,Patient/ Caregiver Education,Self-Care/ Home Management,Sensory Integration,Soft Tissue Mobilization,Taping, Therapeutic Activities, Therapeutic Exercises Modalities Biofeedback,Cold Pack/Ice Massage,Electric Stimulation, Hot Packs,Traction- Mechanical ,Ultrasound,Vasopneumatic Devices Other Therapeutic Interventions No thoracic spine mobilizations Other Referrals/Consults Referrals/Consults Recommended Due to pt PMH of thoracic stress fractures, would benefit from additional imaging to clear thoracic spine Next Visit Focus/Plan Next Note Type Treatment Note Next Visit Plan Next session: Assess sunil to Squat (make sure form is good) with press and review/ progress deadlift, carries, leg press, step ups with carries (resisted), functional core, picking up objects from floor, HS flexibility Manual: STM only POC: progress into flexion bias for core/lumbar strengthening, hip strengthening/review and progress Pallof press
--- NOTE | 2023-11-08 12:53 | PT.OTN ---
Current Diagnoses Low back pain, unspecified (11/08/23) Weakness (11/08/23) Physical Therapy Treatment Note PT-OP-A Visit Information Start: 09/11/23 09:44 Freq: Status: Active Protocol: Document 11/08/23 08:13 AB (Rec: 11/08/23 12:52 AB [id number]) Out-Patient Physical Therapy Visit Information Visit Information Visit Type Treatment Note Visit Note 07/22 for PN Visit Start Time 11:20 Visit Stop Time 12:06 Visit Number 14 Number of [employer] Visits 1 Evaluation Information Evaluation Date 09/11/23 Precautions Precautions Hx of thoracic and lumbar stress fractures PT-OP-B Current Condition Start: 09/11/23 09:44 Freq: Status: Active Protocol: Document 09/11/23 09:45 NM (Rec: 09/11/23 10:34 NM [id number]) Current Condition History of Current Condition Onset Date 3 weeks ago Current Complaints pain, decreased activity History of Current Condition Pt presents with low back pain after doing yard work. He was shoveling sand/mulch for 3 hours into a wheelbarrow (to L >R), which over did it. He had immediately increased soreness pain after that day, commonly flared with physical activity now. Reports restricting motions, very easily flared. Pt has hx of stress fracture (T5,7) in spine from from lifting/ carry 75# crate, previous L shoulder injury from fall ( rotator cuff tear) in 2021. Recent lumbar spine imaging reveals no fractures but degenerative disc disease L4-5 and L5-S1. Pt states he has not numbness/tingling, no changes in sensation. Pt reports no falls, but states balance is worsening and he is having balance issues/neuro issues (eyes, ears) Prior Treatments and Tests Previous PT for back pain injuries from (prone extension exercises helpful, traditional PT not helpful) Current Functional Impairments (Reported) Functional Limitations- ADL's just be careful with dressing/shoes Functional Limitations- Mobility/Gait 1/2 hr-1 hr standing, walk 9- 10 blocks (30-45 min) Functional Limitations- Work/School [employer] 1 day/month (lifting, loading) -unable to lift Functional Limitations- Recreation/ yard work: blower/bending to 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 Patient reports overall he is better, but the incidental stuff does cause pain. PT-OP-E Functional Tests Start: 09/11/23 09:44 Freq: Status: Active Protocol: Document 09/11/23 09:45 NM (Rec: 09/11/23 16:09 NM [id number]) Functional Tests 30 Second Sit to Stand Test Score 20 Comments pain free, valgus, fatiguing , feels pull/stretch Other Forward trunk flexion test Name of Test measured finger to floor Score 4 Comment cued knee ext due to hamstring length, no pain but stretch PT-OP-F Manual Assessment Start: 09/11/23 09:44 Freq: Status: Active Protocol: Document 09/11/23 09:45 NM (Rec: 09/11/23 16:09 NM [id number]) Manual Assessments Soft Tissue Assessment Soft Tissue Mobility Assessment Decreased B hamstring length. Tenderness of B paraspinals, Joint Mobility Assessment Joint Mobility Assessment Decreased lumbar lordosis. Decreased mobility with P-A springing along lumbar and thoracic spine. Midline tenderness at thoracic spine near T7; tenderness slightly lateral to spine at L4-S1. PT-OP-G Mobility & Gait Start: 09/11/23 09:44 Freq: Status: Active Protocol: Document 09/11/23 09:45 NM (Rec: 09/11/23 16:09 NM [id number]) OP Gait Assessment Gait Gait Assistance Required: Independent Distance (Feet) 150 Gait Deviations General Gait Pattern Antalgic,Flexed Trunk Factors Limiting Gait Function Factors Limiting Gait Function Decreased Strength,Pain PT-OP-H Neuro Start: 09/11/23 09:44 Freq: Status: Active Protocol: Document 09/11/23 09:45 NM (Rec: 09/11/23 10:34 NM [id number]) Sensation Evaluation Comments Summary Comments BLE equally intact to light touch sensation Deep Tendon Reflex & Clonus Assessment Deep Tendon Reflex Bilateral Patellar Deep Tendon Reflex 2+ Normal PT-OP-J Posture/Palpation/Skin Start: 09/11/23 09:44 Freq: Status: Active Protocol: Document 09/11/23 09:45 NM (Rec: 09/11/23 16:09 NM [id number]) Posture Evaluation Position Standing Head/C-Spine Posture Forward Head T-Spine Posture Flattened L-Spine Posture Decreased Lordosis Pelvis Posture Posterior Tilted Weight Distribution Balanced Hip Posture (L) Externally Rotated,(R) Externally Rotated Palpation Assessment Location back Palpation Findings Soft Tissue Tightness,Muscle Guarding,Tenderness Palpation Details Tenderness: T7, L4-L5, S1-2. Soft tissue tightness of B paraspinals, QL. Mid-thoracic and lower lumbar spine most tender, demos muscle guarding but no spasms PT-OP-K Range of Motion Start: 09/11/23 09:44 Freq: Status: Active Protocol: Document 10/09/23 10:33 NM (Rec: 10/09/23 11:45 NM [id number]) Lumbar Spine Range of Motion Lumbar Spine Active Percentage Flexion 85 Extension 50 Rotation Left 8 Rotation Right 2 Lateral Flexion Left 75 Lateral Flexion Right 50 ROM Limitations Soft Tissue Tightness Comments soreness with ext, B SB, rotation 10/09/23: 3 from floor with cue for leg straight, 60% for R lateral flexion PT-OP-L Special Tests Start: 09/11/23 09:44 Freq: Status: Active Protocol: Document 09/11/23 09:45 NM (Rec: 09/11/23 10:34 NM [id number]) Special Tests Lumbar Spine Special Tests Plunkett/Quadrant Test Results + Comments local pain B, no radiation distraction Test Results + Comments reports relief of symptoms Straight Leg Raise Test Results + Comments right Slump Test Results - PT-OP-M Strength Start: 09/11/23 09:44 Freq: Status: Active Protocol: Document 10/09/23 10:33 NM (Rec: 10/09/23 11:45 NM [id number]) Trunk Strength Trunk Manual Muscle Testing Flexion 4+ Good+ Extension 4+ Good+ Rotation Left 4 Good Rotation Right 4 Good Lateral Flexion Left 4 Good Lateral Flexion Right 4 Good Comments Pain with resisted R lateral flexion, B rotation 10/09/23: 4/5, pain free PT-OP-Q Treatments Start: 09/11/23 09:44 Freq: Status: Active Protocol: Document 11/08/23 08:13 AB (Rec: 11/08/23 12:52 AB [id number]) Therapeutic Exercises Supine Exercises lower trunk rotation Supine Exercise Name Pt ed to perform when lying on floor prior to initiating exercises Reps/Minutes 2 min Comments verbal cues to perform in pain free range hamstring stretch from hooklying Side bilateral Reps/Minutes 2x60 Comments pain free; post manual treatment Standing Exercises lunge Side bilateral Reps/Minutes X10 each LE Comments verbal and visual cues for hip hinge single leg lift Standing Exercise Name to chair height Side bilateral Reps/Minutes X10 each LE squat Standing Exercise Name to chair height Resistance level 4 band above knees Reps/Minutes X10 w/o weight X 10 3lb overhead, X 10 7 lb each UE Comments monitored for pain Manual Therapy Treatment Soft Tissue Mobilization lumbar spine Body Location paraspinals bilateral, and quadratus Mobilization Type Sustained Pressure Intensity/Depth Moderate Body Position Sidelying Comments Pillow between knees. L > R PT-OP-T Assessment and Plan Start: 09/11/23 09:44 Freq: Status: Active Protocol: Document 11/08/23 08:13 AB (Rec: 11/08/23 12:52 AB [id number]) Physical Therapy Assessment Goals Five Impairment HEP Short Term Goal (STG) Pt will report compliance with HEP at least 2-3x/wk in order to maximize progress made during PT sessions. 10/09/23: daily STG Duration 6 weeks [employer] Goal (LTG) Pt will report compliance with HEP at least 3x/wk in order to maintain progress and smoothly transition into independent exercise upon discharge from PT 11/01/23: daily LTG Duration 12 weeks Four Impairment 20 STS in 30 seconds, 20 mat Short Term Goal (STG) Pt will be able to perform at least 10 bilateral squats without compensation and back pain <4/10 in order to demonstrate improved BLE and trunk strength for lifting, ADL, and activity 10/09/23: able to perform 10 squats with moderate cues to table, difficulty with coordinating squat & hip hinge 11/01/23: 10 squats with hip hinge to mesh chair w/o pain STG Duration 6 weeks [facility] Goal (LTG) Pt will be able to perform >20 sit to stands in 30 seconds without compensation or back pain in order to demonstrate improved BLE and trunk strength for lifting, ADL, and activity 11/01/23: 19 STS from mesh chair (18), no pain in low back LTG Duration 12 weeks PROGRESSING Three Impairment strength/stabilization Impairment B lateral flexion/rotation strength 4/5 Short Term Goal (STG) Pt will improve global trunk strength to at least 5/5 in order to demonstrate improved stability and core bracing during ADLs/activity tolerance 10/09/23: 5/5, improved stabilization STG Duration 6 weeks MET [employer] Goal (LTG) Pt will be able to lift at least 10# from a low surface with good core bracing and body mechanics with back pain <4/10 in order demonstrate improved trunk strength during ADLs/activity tolerance LTG Duration 12 weeks Two Impairment strength Impairment BLE hip strength 4-/5 to 4/5 Short Term Goal (STG) Pt will improve B hip flexion, abduction, and extension strength to at least 4/5 MMT in order to demonstrate increased BLE strength required for gait, ADLs 10/09/23: 4/5 bilaterally STG Duration 6 weeks [facility] Goal (LTG) Pt will improve B hip flexion, abduction, and extension strength to at least 4+/5 MMT in order to demonstrate increased BLE strength required for gait, ADLs 11/01/23: 4+/5 MMT for all LTG Duration 12 weeks MET One Impairment oswestry Impairment score 9/50 Short Term Goal (STG) Pt will decrease oswestry score <9/50 points in order to demonstrate improved activity tolerance, pain management, and QOL 10/09/23: 4/50 STG Duration 6 weeks [facility] Goal (LTG) Pt will decrease oswestry score <5/50 points in order to demonstrate improved activity tolerance, pain management, and QOL 10/09/23: 4/50 11/01/23: 5/50 LTG Duration 12 weeks MET Assessment Summary Assessment Patient reports feeling good end of session. Progressed weight and band for squats and initiated lunges this session with no c/o pain throughout. Physical Therapy Plan Frequency and Duration Frequency of Treatment 2x/Week Duration of treatment (weeks) 12 Plan of Care Start Date 09/11/23 Plan of Care End Date 12/08/23 Therapeutic Interventions Therapeutic Interventions Aquatic Therapy,Balance Training,Coordination Training ,Gait Training,Home Exercise Program,Joint Mobilizations, Manual Therapy,Neuromuscular Re-education,Orthotic/ Prosthetic Management,Patient/ Caregiver Education,Self-Care/ Home Management,Sensory Integration,Soft Tissue Mobilization,Taping, Therapeutic Activities, Therapeutic Exercises Modalities Biofeedback,Cold Pack/Ice Massage,Electric Stimulation, Hot Packs,Traction- Mechanical ,Ultrasound,Vasopneumatic Devices Other Therapeutic Interventions No thoracic spine mobilizations Other Referrals/Consults Referrals/Consults Recommended Due to pt PMH of thoracic stress fractures, would benefit from additional imaging to clear thoracic spine Next Visit Focus/Plan Next Note Type Treatment Note Next Visit Plan Next session: Assess sunil to Squat (make sure form is good) with press and review/ progress deadlift, carries, leg press, step ups with carries (resisted), functional core, picking up objects from floor, HS flexibility Manual: STM only POC: progress into flexion bias for core/lumbar strengthening, hip strengthening/review and progress Pallof press
--- NOTE | 2023-11-15 12:10 | PT.OTN ---
Current Diagnoses Low back pain, unspecified (11/15/23) Weakness (11/15/23) Physical Therapy Treatment Note PT-OP-A Visit Information Start: 09/11/23 09:44 Freq: Status: Active Protocol: Document 11/15/23 11:24 NM (Rec: 11/15/23 12:10 NM [id number]) Out-Patient Physical Therapy Visit Information Visit Information Visit Type Progress Note Visit Note pt late Visit Start Time 11:24 Visit Stop Time 12:00 Visit Number 15 Evaluation Information Evaluation Date 09/11/23 PT-OP-B Current Condition Start: 09/11/23 09:44 Freq: Status: Active Protocol: Document 09/11/23 09:45 NM (Rec: 09/11/23 10:34 NM [id number]) Current Condition History of Current Condition Onset Date 3 weeks ago Current Complaints pain, decreased activity History of Current Condition Pt presents with low back pain after doing yard work. He was shoveling sand/mulch for 3 hours into a wheelbarrow (to L >R), which over did it. He had immediately increased soreness pain after that day, commonly flared with physical activity now. Reports restricting motions, very easily flared. Pt has hx of stress fracture (T5,7) in spine from from lifting/ carry 75# crate, previous L shoulder injury from fall ( rotator cuff tear) in 2021. Recent lumbar spine imaging reveals no fractures but degenerative disc disease L4-5 and L5-S1. Pt states he has not numbness/tingling, no changes in sensation. Pt reports no falls, but states balance is worsening and he is having balance issues/neuro issues (eyes, ears) Prior Treatments and Tests Previous PT for back pain injuries from (prone extension exercises helpful, traditional PT not helpful) Current Functional Impairments (Reported) Functional Limitations- ADL's just be careful with dressing/shoes Functional Limitations- Mobility/Gait 1/2 hr-1 hr standing, walk 9- 10 blocks (30-45 min) Functional Limitations- Work/School [employer] 1 day/month (lifting, loading) -unable to lift Functional Limitations- Recreation/ yard work: blower/bending to Hobbies 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 Reports that he is doing well unless he overdoes it. States usually sore for 2 days after sessions. Reports able to sleep on both sides now without pain, which is better than at evaluation PT-OP-E Functional Tests Start: 09/11/23 09:44 Freq: Status: Active Protocol: Document 09/11/23 09:45 NM (Rec: 09/11/23 16:09 NM [id number]) Functional Tests 30 Second Sit to Stand Test Score 20 Comments pain free, valgus, fatiguing , feels pull/stretch Other Forward trunk flexion test Name of Test measured finger to floor Score 4 Comment cued knee ext due to hamstring length, no pain but stretch PT-OP-F Manual Assessment Start: 09/11/23 09:44 Freq: Status: Active Protocol: Document 09/11/23 09:45 NM (Rec: 09/11/23 16:09 NM [id number]) Manual Assessments Soft Tissue Assessment Soft Tissue Mobility Assessment Decreased B hamstring length. Tenderness of B paraspinals, Joint Mobility Assessment Joint Mobility Assessment Decreased lumbar lordosis. Decreased mobility with P-A springing along lumbar and thoracic spine. Midline tenderness at thoracic spine near T7; tenderness slightly lateral to spine at L4-S1. PT-OP-G Mobility & Gait Start: 09/11/23 09:44 Freq: Status: Active Protocol: Document 09/11/23 09:45 NM (Rec: 09/11/23 16:09 NM [id number]) OP Gait Assessment Gait Gait Assistance Required: Independent Distance (Feet) 150 Gait Deviations General Gait Pattern Antalgic,Flexed Trunk Factors Limiting Gait Function Factors Limiting Gait Function Decreased Strength,Pain PT-OP-H Neuro Start: 09/11/23 09:44 Freq: Status: Active Protocol: Document 09/11/23 09:45 NM (Rec: 09/11/23 10:34 NM [id number]) Sensation Evaluation Comments Summary Comments BLE equally intact to light touch sensation Deep Tendon Reflex & Clonus Assessment Deep Tendon Reflex Bilateral Patellar Deep Tendon Reflex 2+ Normal PT-OP-J Posture/Palpation/Skin Start: 09/11/23 09:44 Freq: Status: Active Protocol: Document 09/11/23 09:45 NM (Rec: 09/11/23 16:09 NM [id number]) Posture Evaluation Position Standing Head/C-Spine Posture Forward Head T-Spine Posture Flattened L-Spine Posture Decreased Lordosis Pelvis Posture Posterior Tilted Weight Distribution Balanced Hip Posture (L) Externally Rotated,(R) Externally Rotated Palpation Assessment Location back Palpation Findings Soft Tissue Tightness,Muscle Guarding,Tenderness Palpation Details Tenderness: T7, L4-L5, S1-2. Soft tissue tightness of B paraspinals, QL. Mid-thoracic and lower lumbar spine most tender, demos muscle guarding but no spasms PT-OP-K Range of Motion Start: 09/11/23 09:44 Freq: Status: Active Protocol: Document 11/15/23 11:24 NM (Rec: 11/15/23 12:10 NM [id number]) Lumbar Spine Range of Motion Lumbar Spine Active Percentage Flexion 85 Extension 50 Rotation Left 8 Rotation Right 2 Lateral Flexion Left 75 Lateral Flexion Right 50 ROM Limitations Soft Tissue Tightness Comments soreness with ext, B SB, rotation 10/09/23: 3 from floor with cue for leg straight, 60% for R lateral flexion 11/15/23: 3 from floor PT-OP-L Special Tests Start: 09/11/23 09:44 Freq: Status: Active Protocol: Document 09/11/23 09:45 NM (Rec: 09/11/23 10:34 NM [id number]) Special Tests Lumbar Spine Special Tests Plunkett/Quadrant Test Results + Comments local pain B, no radiation distraction Test Results + Comments reports relief of symptoms Straight Leg Raise Test Results + Comments right Slump Test Results - PT-OP-M Strength Start: 09/11/23 09:44 Freq: Status: Active Protocol: Document 11/15/23 11:24 NM (Rec: 11/15/23 12:10 NM [id number]) Trunk Strength Trunk Manual Muscle Testing Flexion 4+ Good+ Extension 4+ Good+ Rotation Left 4 Good Rotation Right 4 Good Lateral Flexion Left 4 Good Lateral Flexion Right 4 Good Comments Pain with resisted R lateral flexion, B rotation 10/09/23: 4/5, pain free 11/15/23: 4/5, pain free PT-OP-Q Treatments Start: 09/11/23 09:44 Freq: Status: Active Protocol: Document 11/15/23 11:24 NM (Rec: 11/15/23 12:10 NM [id number]) Therapeutic Exercises Supine Exercises lower trunk rotation Equipment Used on plinth Reps/Minutes 2x60 figure 4 stretch Supine Exercise Name knee flexed, slight pull to chest Side bilateral Equipment Used towel Reps/Minutes 1x60 ea Comments pain free, reports good feedback w/ stretch francisco j stretch Side bilateral Reps/Minutes 1x60 ea Comments pain free w/ stretch, but diff w/ assume position Standing Exercises squat Standing Exercise Name 30 sec STS Equipment Used 20 chair Reps/Minutes 2 sets: 15, 13 Comments cued for correct execution high row Standing Exercise Name lat pull down- cables Resistance cables 3 plates Reps/Minutes 1x15 Comments cued to squeeze PT fingers w/ lats for form Pallof press Standing Exercise Name seated on montserratian ball: 1. press , 2. rotation away w/ arms extended Side bilateral Resistance lvl 3 band Equipment Used large green montserratian ball Reps/Minutes 1. 3x10 ea, 2. 1x10 ea (pain free) Comments cued for no rotation; improved core stabilization Other Exercises quadruped bird dog Other Exercise Name on montserratian ball, non-alt Side bilateral Reps/Minutes 1x8 ea Comments cued for form; difficulty coordinating; no pain in back Self-Care/Home Management Treatment Education Patient Education Joint Protection,Pain Management Other Education Education on sleeping position with pillow under L hip for comfort. Hand out issued PT-OP-T Assessment and Plan Start: 09/11/23 09:44 Freq: Status: Active Protocol: Document 11/15/23 11:24 NM (Rec: 11/15/23 12:10 NM [id number]) Physical Therapy Assessment Goals Five Impairment HEP Short Term Goal (STG) Pt will report compliance with HEP at least 2-3x/wk in order to maximize progress made during PT sessions. 10/09/23: daily STG Duration 6 weeks Fdc Goal (LTG) Pt will report compliance with HEP at least 3x/wk in order to maintain progress and smoothly transition into independent exercise upon discharge from PT 11/01/23: daily LTG Duration 12 weeks Four Impairment 20 STS in 30 seconds, 20 mat Short Term Goal (STG) Pt will be able to perform at least 10 bilateral squats without compensation and back pain <4/10 in order to demonstrate improved BLE and trunk strength for lifting, ADL, and activity 10/09/23: able to perform 10 squats with moderate cues to table, difficulty with coordinating squat & hip hinge 11/01/23: 10 squats with hip hinge to mesh chair w/o pain STG Duration 6 weeks 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 [employer]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 (LTG) Pt will be able to perform >20 sit to stands in 30 seconds without compensation or back pain in order to demonstrate improved BLE and trunk strength for lifting, ADL, and activity 11/01/23: 19 STS from mesh chair (18), no pain in low back 11/15/23: 15 from 20 chair, fatiguing today LTG Duration 12 weeks PROGRESSING Three Impairment strength/stabilization Impairment B lateral flexion/rotation strength 09/14 Short Term Goal (STG) Pt will improve global trunk strength to at least 5/5 in order to demonstrate improved stability and core bracing during ADLs/activity tolerance 10/09/23: 5/5, improved stabilization STG Duration 6 weeks 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 Metal Goal (LTG) Pt will be able to lift at least 10# from a low surface with good core bracing and body mechanics with back pain <4/10 in order demonstrate improved trunk strength during ADLs/activity tolerance 11/15/23: LTG Duration 12 weeks Two Impairment strength Impairment BLE hip strength 4-/5 to 5 Short Term Goal (STG) Pt will improve B hip flexion, abduction, and extension strength to at least 4/5 MMT in order to demonstrate increased BLE strength required for gait, ADLs 10/09/23: 4/5 bilaterally STG Duration 6 weeks MET Fdc Goal (LTG) Pt will improve B hip flexion, abduction, and extension strength to at least 4+/5 MMT in order to demonstrate increased BLE strength required for gait, ADLs 11/01/23: 4+/5 MMT for all LTG Duration 12 weeks MET One Impairment oswestry Impairment score 9/50 Short Term Goal (STG) Pt will decrease oswestry score <9/50 points in order to demonstrate improved activity tolerance, pain management, and QOL 10/09/23: 4/50 STG Duration 6 weeks 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 Goal (LTG) Pt will decrease oswestry score <5/50 points in order to demonstrate improved activity tolerance, pain management, and QOL 10/09/23: 450 11/01/23: 550 LTG Duration 12 weeks MET Progress Towards Goals Progress Towards Goals Progressing Toward Goals,Goals Met Progress Comments progressing toward STS goal Assessment Summary Assessment Pt tolerated session well, reports fatigue at end of session. Late to session so decreased time. Pt demonstrates improved ability to stabilize core against rotational forces without trunk compensation. However, he requires multiple cues for correct execution. Initiated lat pull downs and seated core on montserratian ball. Cued for form, max lat activation during lat pull down. Minimal reps due to tolerance. Trialed bird dog on montserratian ball, but pt has difficulty with coordinating movements, maintaining neutral spine. He is painfree during all exercises despite soreness he reports after sessions. Educated on sleeping position for L hip pain management. Pt progressing well toward goals, interested in initiating maintenance program at end of plan of care. Physical Therapy Plan Frequency and Duration Frequency of Treatment 2x/Week Duration of treatment (weeks) 12 Plan of Care Start Date 09/11/23 Plan of Care End Date 12/08/23 Therapeutic Interventions Therapeutic Interventions Aquatic Therapy,Balance Training,Coordination Training ,Gait Training,Home Exercise Program,Joint Mobilizations, Manual Therapy,Neuromuscular Re-education,Orthotic/ Prosthetic Management,Patient/ Caregiver Education,Self-Care/ Home Management,Sensory Integration,Soft Tissue Mobilization,Taping, Therapeutic Activities, Therapeutic Exercises Modalities Biofeedback,Cold Pack/Ice Massage,Electric Stimulation, Hot Packs,Traction- Mechanical ,Ultrasound,Vasopneumatic Devices Other Therapeutic Interventions No thoracic spine mobilizations Other Referrals/Consults Referrals/Consults Recommended Due to pt PMH of thoracic stress fractures, would benefit from additional imaging to clear thoracic spine Next Visit Focus/Plan Next Note Type Treatment Note Next Visit Plan squat + OH lift, lat pull down , leg press, step ups with carries (resisted), functional core, picking up objects from floor, HS flexibility Manual: STM only POC: progress into flexion bias for core/lumbar strengthening, hip strengthening/review and progress Pallof press
--- NOTE | 2023-11-17 12:15 | PT.OTN ---
Current Diagnoses Low back pain, unspecified (11/17/23) Weakness (11/17/23) Physical Therapy Treatment Note PT-OP-A Visit Information Start: 09/11/23 09:44 Freq: Status: Active Protocol: Document 11/17/23 11:02 AB (Rec: 11/17/23 12:15 AB [id number]) Out-Patient Physical Therapy Visit Information Visit Information Visit Type Treatment Note Visit Start Time 11:19 Visit Stop Time 12:06 Visit Number 16 Number of AUTOMOTIVE PARTS COORDINATOR Visits 1 Evaluation Information Evaluation Date 09/11/23 Precautions Precautions Hx of thoracic and lumbar stress fractures PT-OP-B Current Condition Start: 09/11/23 09:44 Freq: Status: Active Protocol: Document 09/11/23 09:45 NM (Rec: 09/11/23 10:34 NM [id number]) Current Condition History of Current Condition Onset Date 3 weeks ago Current Complaints pain, decreased activity History of Current Condition Pt presents with low back pain after doing yard work. He was shoveling sand/mulch for 3 hours into a wheelbarrow (to L >R), which over did it. He had immediately increased soreness pain after that day, commonly flared with physical activity now. Reports restricting motions, very easily flared. Pt has hx of stress fracture (T5,7) in spine from from lifting/ carry 75# crate, previous L shoulder injury from fall ( rotator cuff tear) in 2021. Recent lumbar spine imaging reveals no fractures but degenerative disc disease L4-5 and L5-S1. Pt states he has not numbness/tingling, no changes in sensation. 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 Stand to sit with reports of soreness when questioned, ( stand to sit with increased velocity) Patient reports post previous session soreness lasted 24 hours. Patient reports he has done very little of HEP due to activities/out of town to nearly [place]. PT-OP-E Functional Tests Start: 09/11/23 09:44 Freq: Status: Active Protocol: Document 09/11/23 09:45 NM (Rec: 09/11/23 16:09 NM [id number]) Functional Tests 30 Second Sit to Stand Test Score 20 Comments pain free, valgus, fatiguing , feels pull/stretch Other Forward trunk flexion test Name of Test measured finger to floor Score 4 Comment cued knee ext due to hamstring length, no pain but stretch PT-OP-F Manual Assessment Start: 09/11/23 09:44 Freq: Status: Active Protocol: Document 09/11/23 09:45 NM (Rec: 09/11/23 16:09 NM [id number]) Manual Assessments Soft Tissue Assessment Soft Tissue Mobility Assessment Decreased B hamstring length. Tenderness of B paraspinals, Joint Mobility Assessment Joint Mobility Assessment Decreased lumbar lordosis. Decreased mobility with P-A springing along lumbar and thoracic spine. Midline tenderness at thoracic spine near T7; tenderness slightly lateral to spine at L4-S1. PT-OP-G Mobility & Gait Start: 09/11/23 09:44 Freq: Status: Active Protocol: Document 09/11/23 09:45 NM (Rec: 09/11/23 16:09 NM [id number]) OP Gait Assessment Gait Gait Assistance Required: Independent Distance (Feet) 150 Gait Deviations General Gait Pattern Antalgic,Flexed Trunk Factors Limiting Gait Function Factors Limiting Gait Function Decreased Strength,Pain PT-OP-H Neuro Start: 09/11/23 09:44 Freq: Status: Active Protocol: Document 09/11/23 09:45 NM (Rec: 09/11/23 10:34 NM [id number]) Sensation Evaluation Comments Summary Comments BLE equally intact to light touch sensation Deep Tendon Reflex & Clonus Assessment Deep Tendon Reflex Bilateral Patellar Deep Tendon Reflex 2+ Normal PT-OP-J Posture/Palpation/Skin Start: 09/11/23 09:44 Freq: Status: Active Protocol: Document 09/11/23 09:45 NM (Rec: 09/11/23 16:09 NM [id number]) Posture Evaluation Position Standing Head/C-Spine Posture Forward Head T-Spine Posture Flattened L-Spine Posture Decreased Lordosis Pelvis Posture Posterior Tilted Weight Distribution Balanced Hip Posture (L) Externally Rotated,(R) Externally Rotated Palpation Assessment Location back Palpation Findings Soft Tissue Tightness,Muscle Guarding,Tenderness Palpation Details Tenderness: T7, L4-L5, S1-2. Soft tissue tightness of B paraspinals, QL. Mid-thoracic and lower lumbar spine most tender, demos muscle guarding but no spasms PT-OP-K Range of Motion Start: 09/11/23 09:44 Freq: Status: Active Protocol: Document 11/15/23 11:24 NM (Rec: 11/15/23 12:10 NM [id number]) Lumbar Spine Range of Motion Lumbar Spine Active Percentage Flexion 85 Extension 50 Rotation Left 8 Rotation Right 2 Lateral Flexion Left 75 Lateral Flexion Right 50 ROM Limitations Soft Tissue Tightness Comments soreness with ext, B SB, rotation 10/09/23: 3 from floor with cue for leg straight, 60% for R lateral flexion 11/15/23: 3 from floor PT-OP-L Special Tests Start: 09/11/23 09:44 Freq: Status: Active Protocol: Document 09/11/23 09:45 NM (Rec: 09/11/23 10:34 NM [id number]) Special Tests Lumbar Spine Special Tests Plunkett/Quadrant Test Results + Comments local pain B, no radiation distraction Test Results + Comments reports relief of symptoms Straight Leg Raise Test Results + Comments right Slump Test Results - PT-OP-M Strength Start: 09/11/23 09:44 Freq: Status: Active Protocol: Document 11/15/23 11:24 NM (Rec: 11/15/23 12:10 NM [id number]) Trunk Strength Trunk Manual Muscle Testing Flexion 4+ Good+ Extension 4+ Good+ Rotation Left 4 Good Rotation Right 4 Good Lateral Flexion Left 4 Good Lateral Flexion Right 4 Good Comments Pain with resisted R lateral flexion, B rotation 10/09/23: 4/5, pain free 6/5/24: 4/5, pain free PT-OP-Q Treatments Start: 09/11/23 09:44 Freq: Status: Active Protocol: Document 11/17/23 11:02 AB (Rec: 11/17/23 12:15 AB [id number]) Therapeutic Exercises Supine Exercises lower trunk rotation Reps/Minutes 2 min figure 4 stretch Supine Exercise Name knee flexed, slight pull to chest Side bilateral Equipment Used towel Reps/Minutes 1x60 ea Comments pain free, reports good feedback w/ stretch francisco j stretch Side bilateral Reps/Minutes 1x60 ea Comments pain free w/ stretch, but diff w/ assume position hamstring stretch from hooklying Side bilateral Reps/Minutes 2x60 Comments pain free; post manual treatment bridge Side bilateral Reps/Minutes 2x10 Comments monitored for pain Sitting Exercises hip abduction Side bilateral Resistance level 4 band Reps/Minutes 2X15 Comments pain free Standing Exercises squat Standing Exercise Name from mat at chair height Resistance level 4 band above knees Reps/Minutes 2X10 Comments verbal and visual cues for hip hinge, good form through 8 reps of first set Manual Therapy Treatment Soft Tissue Mobilization hamstrings Body Location bilateral hamstrings Mobilization Type Cross-Friction Intensity/Depth Moderate Body Position Sidelying Comments Increased tightness, performed prior to stretching Self-Care/Home Management Treatment Education Other Education Discussed yard equipment, patient comments his edger is too short. Discussed purchasing medical surgical tech equipment ie electric vs gas and purchasing a longer edger, as Bon reports increased back pain with yard work continues to be a problem. PT-OP-T Assessment and Plan Start: 09/11/23 09:44 Freq: Status: Active Protocol: Document 11/17/23 11:02 AB (Rec: 11/17/23 12:15 AB [id number]) Physical Therapy Assessment Goals Five Impairment HEP Short Term Goal (STG) Pt will report compliance with HEP at least 2-3x/wk in order to maximize progress made during PT sessions. 10/09/23: daily STG Duration 6 weeks Surveillance Analyst Goal (LTG) Pt will report compliance with HEP at least 3x/wk in order to maintain progress and smoothly transition into independent exercise upon discharge from PT 11/01/23: daily LTG Duration 12 weeks Four Impairment 20 STS in 30 seconds, 20 mat Short Term Goal (STG) Pt will be able to perform at least 10 bilateral squats without compensation and back pain <4/10 in order to demonstrate improved BLE and trunk strength for lifting, ADL, and activity 10/09/23: able to perform 10 squats with moderate cues to table, difficulty with coordinating squat & hip hinge 11/01/23: 10 squats with hip hinge to mesh chair w/o pain STG Duration 6 weeks MET Longterm Goal (LTG) Pt will be able to perform >20 sit to stands in 30 seconds without compensation or back pain in order to demonstrate improved BLE and trunk strength for lifting, ADL, and activity 11/01/23: 19 STS from mesh chair (18), no pain in low back 11/15/23: 15 from 20 chair, fatiguing today LTG Duration 12 weeks PROGRESSING Three Impairment strength/stabilization Impairment B lateral flexion/rotation strength 09/14 Short Term Goal (STG) Pt will improve global trunk strength to at least 5/5 in order to demonstrate improved stability and core bracing during ADLs/activity tolerance 10/09/23: 5/5, improved stabilization STG Duration 6 weeks MET Surveillance Analyst Goal (LTG) Pt will be able to lift at least 10# from a low surface with good core bracing and body mechanics with back pain <4/10 in order demonstrate improved trunk strength during ADLs/activity tolerance 11/15/23: LTG Duration 12 weeks Two Impairment strength Impairment BLE hip strength 4-/5 to 4/5 Short Term Goal (STG) Pt will improve B hip flexion, abduction, and extension strength to at least 4/5 MMT in order to demonstrate increased BLE strength required for gait, ADLs 10/09/23: 4/5 bilaterally STG Duration 6 weeks MET Surveillance Analyst Goal (LTG) Pt will improve B hip flexion, abduction, and extension strength to at least 4+/5 MMT in order to demonstrate increased BLE strength required for gait, ADLs 11/01/23: 4+/5 MMT for all LTG Duration 12 weeks MET One Impairment oswestry Impairment score 9/50 Short Term Goal (STG) Pt will decrease oswestry score <9/50 points in order to demonstrate improved activity tolerance, pain management, and QOL 10/09/23: 4/50 STG Duration 6 weeks MET Surveillance Analyst Goal (LTG) Pt will decrease oswestry score <5/50 points in order to demonstrate improved activity tolerance, pain management, and QOL 10/09/23: 11/01/23: LTG Duration 12 weeks MET Assessment Summary Assessment Bon tolerated this session well rating back pain 0/10 end of session. Discussed yard equipment, patient comments his edger is too short. Discussed purchasing medical surgical tech equipment ie electric vs gas and purchasing a longer edger, as Bon reports increased back pain with yard work continues to be a problem. Physical Therapy Plan Frequency and Duration Frequency of Treatment 2x/Week Duration of treatment (weeks) 12 Plan of Care Start Date 09/11/23 Plan of Care End Date 12/08/23 Next Visit Focus/Plan Next Note Type Treatment Note Next Visit Plan Condense HEP: squat + OH lift, lat pull down, leg press, step ups with carries ( resisted), functional core, picking up objects from floor, HS flexibility Manual: STM only POC: progress into flexion bias for core/lumbar strengthening, hip strengthening/review and progress Pallof press
--- NOTE | 2023-11-22 14:15 | PT.OTN ---
Current Diagnoses Low back pain, unspecified (11/22/23) Weakness (11/22/23) Physical Therapy Treatment Note PT-OP-A Visit Information Start: 09/11/23 09:44 Freq: Status: Active Protocol: Document 11/22/23 09:38 AB (Rec: 11/22/23 14:15 AB [id number]) Out-Patient Physical Therapy Visit Information Visit Information Visit Type Treatment Note Visit Start Time 11:23 Visit Stop Time 12:10 Visit Number 17 Number of JAVA PROGRAMMER Visits 2 Evaluation Information Evaluation Date 09/11/23 Precautions Precautions Hx of thoracic and lumbar stress fractures PT-OP-B Current Condition Start: 09/11/23 09:44 Freq: Status: Active Protocol: Document 09/11/23 09:45 NM (Rec: 09/11/23 10:34 NM [id number]) Current Condition History of Current Condition Onset Date 3 weeks ago Current Complaints pain, decreased activity History of Current Condition Pt presents with low back pain after doing yard work. He was shoveling sand/mulch for 3 hours into a wheelbarrow (to L >R), which over did it. He had immediately increased soreness pain after that day, commonly flared with physical activity now. Reports restricting motions, very easily flared. Pt has hx of stress fracture (T5,7) in spine from from lifting/ carry 75# crate, previous L shoulder injury from fall ( rotator cuff tear) in 2021. Recent lumbar spine imaging reveals no fractures but degenerative disc disease L4-5 and L5-S1. Pt states he has not numbness/tingling, no changes in sensation. 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 Patient reports back pain is not in any pain today. Patient reports he did the exercises 2/4 days. PT-OP-E Functional Tests Start: 09/11/23 09:44 Freq: Status: Active Protocol: Document 09/11/23 09:45 NM (Rec: 09/11/23 16:09 NM [id number]) Functional Tests 30 Second Sit to Stand Test Score 20 Comments pain free, valgus, fatiguing , feels pull/stretch Other Forward trunk flexion test Name of Test measured finger to floor Score 4 Comment cued knee ext due to hamstring length, no pain but stretch PT-OP-F Manual Assessment Start: 09/11/23 09:44 Freq: Status: Active Protocol: Document 09/11/23 09:45 NM (Rec: 09/11/23 16:09 NM [id number]) Manual Assessments Soft Tissue Assessment Soft Tissue Mobility Assessment Decreased B hamstring length. Tenderness of B paraspinals, Joint Mobility Assessment Joint Mobility Assessment Decreased lumbar lordosis. Decreased mobility with P-A springing along lumbar and thoracic spine. Midline tenderness at thoracic spine near T7; tenderness slightly lateral to spine at L4-S1. PT-OP-G Mobility & Gait Start: 09/11/23 09:44 Freq: Status: Active Protocol: Document 09/11/23 09:45 NM (Rec: 09/11/23 16:09 NM [id number]) OP Gait Assessment Gait Gait Assistance Required: Independent Distance (Feet) 150 Gait Deviations General Gait Pattern Antalgic,Flexed Trunk Factors Limiting Gait Function Factors Limiting Gait Function Decreased Strength,Pain PT-OP-H Neuro Start: 09/11/23 09:44 Freq: Status: Active Protocol: Document 09/11/23 09:45 NM (Rec: 09/11/23 10:34 NM [id number]) Sensation Evaluation Comments Summary Comments BLE equally intact to light touch sensation Deep Tendon Reflex & Clonus Assessment Deep Tendon Reflex Bilateral Patellar Deep Tendon Reflex 2+ Normal PT-OP-J Posture/Palpation/Skin Start: 09/11/23 09:44 Freq: Status: Active Protocol: Document 09/11/23 09:45 NM (Rec: 09/11/23 16:09 NM [id number]) Posture Evaluation Position Standing Head/C-Spine Posture Forward Head T-Spine Posture Flattened L-Spine Posture Decreased Lordosis Pelvis Posture Posterior Tilted Weight Distribution Balanced Hip Posture (L) Externally Rotated,(R) Externally Rotated Palpation Assessment Location back Palpation Findings Soft Tissue Tightness,Muscle Guarding,Tenderness Palpation Details Tenderness: T7, L4-L5, S1-2. Soft tissue tightness of B paraspinals, QL. Mid-thoracic and lower lumbar spine most tender, demos muscle guarding but no spasms PT-OP-K Range of Motion Start: 09/11/23 09:44 Freq: Status: Active Protocol: Document 11/15/23 11:24 NM (Rec: 11/15/23 12:10 NM [id number]) Lumbar Spine Range of Motion Lumbar Spine Active Percentage Flexion 85 Extension 50 Rotation Left 8 Rotation Right 2 Lateral Flexion Left 75 Lateral Flexion Right 50 ROM Limitations Soft Tissue Tightness Comments soreness with ext, B SB, rotation 10/09/23: 3 from floor with cue for leg straight, 60% for R lateral flexion 11/15/23: 3 from floor PT-OP-L Special Tests Start: 09/11/23 09:44 Freq: Status: Active Protocol: Document 09/11/23 09:45 NM (Rec: 09/11/23 10:34 NM [id number]) Special Tests Lumbar Spine Special Tests Plunkett/Quadrant Test Results + Comments local pain B, no radiation distraction Test Results + Comments reports relief of symptoms Straight Leg Raise Test Results + Comments right Slump Test Results - PT-OP-M Strength Start: 09/11/23 09:44 Freq: Status: Active Protocol: Document 11/15/23 11:24 NM (Rec: 11/15/23 12:10 NM [id number]) Trunk Strength Trunk Manual Muscle Testing Flexion 4+ Good+ Extension 4+ Good+ Rotation Left 4 Good Rotation Right 4 Good Lateral Flexion Left 4 Good Lateral Flexion Right 4 Good Comments Pain with resisted R lateral flexion, B rotation 10/09/23: 4/5, pain free 11/15/23: 4/5, pain free PT-OP-Q Treatments Start: 09/11/23 09:44 Freq: Status: Active Protocol: Document 11/22/23 09:38 AB (Rec: 11/22/23 14:15 AB [id number]) Therapeutic Exercises Supine Exercises lower trunk rotation Reps/Minutes 1 min figure 4 stretch Supine Exercise Name knee flexed, slight pull to chest Side bilateral Equipment Used towel Reps/Minutes 1x60 ea Comments pain free, reports good feedback w/ stretch francisco j stretch Side bilateral Reps/Minutes 1x60 ea Comments pain free w/ stretch, but diff w/ assume position breathing from diaphragm in modified restorative pose Reps/Minutes 1 min Comments Pt ed use of self tactile cues abdominal bracing with LE extension Supine Exercise Name from hooklying Side bilateral Reps/Minutes X10 Comments verbal cues to brace as LE is extended hamstring stretch from hooklying Side bilateral Reps/Minutes 2x60 Comments pain free; post manual treatment bridge Side bilateral Reps/Minutes X15 Comments monitored for pain Sitting Exercises pelvic tilts Side bilateral Reps/Minutes X5, also X4 Comments Verbal cues to perform in pain free range hip abduction Side bilateral Resistance level 4 band Reps/Minutes X15 Standing Exercises lunge Side bilateral Reps/Minutes X15 each LE Comments verbal and visual cues for hip hinge torrez carry Standing Exercise Name 1. torrez carry, Side bilateral Resistance 6 lb each UE Reps/Minutes one minute Comments monitored for pain single leg lift Standing Exercise Name to chair height Side bilateral Reps/Minutes X10 each LE side steps Side bilateral Reps/Minutes X5 each LE Comments VC to avoid toeing out squat Standing Exercise Name from mat at chair height Resistance level 4 band above knees Reps/Minutes X10 Comments verbal and visual cues for hip hinge, good form through 8 reps of first set high row Resistance levle 3 band Reps/Minutes X10 Comments Verbal cues for scap squeeze counter plank bird dog Side bilateral Reps/Minutes X15 Comments Verbal, visual, and tactile cues repeatedly Pallof press Resistance level 4 band Reps/Minutes X10 each side Comments cued for no rotation PT-OP-T Assessment and Plan Start: 09/11/23 09:44 Freq: Status: Active Protocol: Document 11/22/23 09:38 AB (Rec: 11/22/23 14:15 AB [id number]) Physical Therapy Assessment Goals Five Impairment HEP Short Term Goal (STG) Pt will report compliance with HEP at least 2-3x/wk in order to maximize progress made during PT sessions. 10/09/23: daily STG Duration 6 weeks Beer Maker Goal (LTG) Pt will report compliance with HEP at least 3x/wk in order to maintain progress and smoothly transition into independent exercise upon discharge from PT 11/01/23: daily LTG Duration 12 weeks Four Impairment 20 STS in 30 seconds, 20 mat Short Term Goal (STG) Pt will be able to perform at least 10 bilateral squats without compensation and back pain <4/10 in order to demonstrate improved BLE and trunk strength for lifting, ADL, and activity 10/09/23: able to perform 10 squats with moderate cues to table, difficulty with coordinating squat & hip hinge 11/01/23: 10 squats with hip hinge to mesh chair w/o pain STG Duration 6 weeks MET Correction Goal (LTG) Pt will be able to perform >20 sit to stands in 30 seconds without compensation or back pain in order to demonstrate improved BLE and trunk strength for lifting, ADL, and activity 11/01/23: 19 STS from mesh chair (18), no pain in low back 11/15/23: 15 from 20 chair, fatiguing today LTG Duration 12 weeks PROGRESSING Three Impairment strength/stabilization Impairment B lateral flexion/rotation strength / Short Term Goal (STG) Pt will improve global trunk strength to at least 5/5 in order to demonstrate improved stability and core bracing during ADLs/activity tolerance 10/09/23: 5/5, improved stabilization STG Duration 6 weeks MET Correction Goal (LTG) Pt will be able to lift at least 10# from a low surface with good core bracing and body mechanics with back pain <4/10 in order demonstrate improved trunk strength during ADLs/activity tolerance 11/15/23: LTG Duration 12 weeks Two Impairment strength Impairment BLE hip strength 4-/5 to 4/5 Short Term Goal (STG) Pt will improve B hip flexion, abduction, and extension strength to at least 4/5 MMT in order to demonstrate increased BLE strength required for gait, ADLs 10/09/23: 4/5 bilaterally STG Duration 6 weeks MET Correction Goal (LTG) Pt will improve B hip flexion, abduction, and extension strength to at least 4+/5 MMT in order to demonstrate increased BLE strength required for gait, ADLs 11/01/23: 4+/5 MMT for all LTG Duration 12 weeks MET One Impairment oswestry Impairment score 9/50 Short Term Goal (STG) Pt will decrease oswestry score <9/50 points in order to demonstrate improved activity tolerance, pain management, and QOL 10/09/23: STG Duration 6 weeks MET Beer Maker Goal (LTG) Pt will decrease oswestry score <5/50 points in order to demonstrate improved activity tolerance, pain management, and QOL 10/09/23: 11/01/23: LTG Duration 12 weeks MET Assessment Summary Assessment HEP has been fully reviewed, and condensed. Increased cues required for bird dog and supine to sit this session. Physical Therapy Plan Frequency and Duration Frequency of Treatment 2x/Week Duration of treatment (weeks) 12 Plan of Care Start Date 09/11/23 Plan of Care End Date 12/08/23 Next Visit Focus/Plan Next Note Type Treatment Note Next Visit Plan Condense HEP: squat + OH lift, lat pull down, leg press, step ups with carries ( resisted), functional core, picking up objects from floor, HS flexibility Manual: STM only POC: progress into flexion bias for core/lumbar strengthening, hip strengthening/review and progress Pallof press Review bird dog and supine to sit.
--- NOTE | 2023-11-24 12:15 | PT.OTN ---
Current Diagnoses Low back pain, unspecified (11/24/23) Weakness (11/24/23) Physical Therapy Treatment Note PT-OP-A Visit Information Start: 09/11/23 09:44 Freq: Status: Active Protocol: Document 11/24/23 11:21 NM (Rec: 11/24/23 12:15 NM [id number]) Out-Patient Physical Therapy Visit Information Visit Information Visit Type Treatment Note Visit Start Time 11:21 Visit Stop Time 12:00 Visit Number 18 PT-OP-B Current Condition Start: 09/11/23 09:44 Freq: Status: Active Protocol: Document 09/11/23 09:45 NM (Rec: 09/11/23 10:34 NM [id number]) Current Condition History of Current Condition Onset Date 3 weeks ago Current Complaints pain, decreased activity History of Current Condition Pt presents with low back pain after doing yard work. He was shoveling sand/mulch for 3 hours into a wheelbarrow (to L >R), which over did it. He had immediately increased soreness pain after that day, commonly flared with physical activity now. Reports restricting motions, very easily flared. Pt has hx of stress fracture (T5,7) in spine from from lifting/ carry 75# crate, previous L shoulder injury from fall ( rotator cuff tear) in 2021. Recent lumbar spine imaging reveals no fractures but degenerative disc disease L4-5 and L5-S1. Pt states he has not numbness/tingling, no changes in sensation. Pt reports no falls, but states balance is worsening and he is having balance issues/neuro issues (eyes, ears) Prior Treatments and Tests Previous PT for back pain injuries from (prone extension exercises helpful, traditional PT not helpful) Current Functional Impairments (Reported) Functional Limitations- ADL's just be careful with dressing/shoes Functional Limitations- Mobility/Gait 1/2 hr-1 hr standing, walk 9- 10 blocks (30-45 min) Functional Limitations- Work/School [employer] 1 day/month (lifting, loading) -unable to lift Functional Limitations- Recreation/ yard work: blower/bending to Hobbies vegetable picker work (1 hr) Functional Limitations- Other sit 1.5 hrs in [address] PT-OP-C Subjective Start: 09/11/23 09:44 Freq: Status: Active Protocol: Document 11/24/23 11:21 NM (Rec: 11/24/23 12:15 NM [id number]) OP-PT Subjective Patient Comments Patient Comments Pt reports that he has some soreness from the HEP but reports that he was trying to do the posterior pelvic tilts and push his back to the floor again. He denies pain, only soreness. Brought HEP and has questions PT-OP-E Functional Tests Start: 09/11/23 09:44 Freq: Status: Active Protocol: Document 09/11/23 09:45 NM (Rec: 09/11/23 16:09 NM [id number]) Functional Tests 30 Second Sit to Stand Test Score 20 Comments pain free, valgus, fatiguing , feels pull/stretch Other Forward trunk flexion test Name of Test measured finger to floor Score 4 Comment cued knee ext due to hamstring length, no pain but stretch PT-OP-F Manual Assessment Start: 09/11/23 09:44 Freq: Status: Active Protocol: Document 09/11/23 09:45 NM (Rec: 09/11/23 16:09 NM [id number]) Manual Assessments Soft Tissue Assessment Soft Tissue Mobility Assessment Decreased B hamstring length. Tenderness of B paraspinals, Joint Mobility Assessment Joint Mobility Assessment Decreased lumbar lordosis. Decreased mobility with P-A springing along lumbar and thoracic spine. Midline tenderness at thoracic spine near T7; tenderness slightly lateral to spine at L4-S1. PT-OP-G Mobility & Gait Start: 09/11/23 09:44 Freq: Status: Active Protocol: Document 09/11/23 09:45 NM (Rec: 09/11/23 16:09 NM [id number]) OP Gait Assessment Gait Gait Assistance Required: Independent Distance (Feet) 150 Gait Deviations General Gait Pattern Antalgic,Flexed Trunk Factors Limiting Gait Function Factors Limiting Gait Function Decreased Strength,Pain PT-OP-H Neuro Start: 09/11/23 09:44 Freq: Status: Active Protocol: Document 09/11/23 09:45 NM (Rec: 09/11/23 10:34 NM [id number]) Sensation Evaluation Comments Summary Comments BLE equally intact to light touch sensation Deep Tendon Reflex & Clonus Assessment Deep Tendon Reflex Bilateral Patellar Deep Tendon Reflex 2+ Normal PT-OP-J Posture/Palpation/Skin Start: 09/11/23 09:44 Freq: Status: Active Protocol: Document 09/11/23 09:45 NM (Rec: 09/11/23 16:09 NM [id number]) Posture Evaluation Position Standing Head/C-Spine Posture Forward Head T-Spine Posture Flattened L-Spine Posture Decreased Lordosis Pelvis Posture Posterior Tilted Weight Distribution Balanced Hip Posture (L) Externally Rotated,(R) Externally Rotated Palpation Assessment Location back Palpation Findings Soft Tissue Tightness,Muscle Guarding,Tenderness Palpation Details Tenderness: T7, L4-L5, S1-2. Soft tissue tightness of B paraspinals, QL. Mid-thoracic and lower lumbar spine most tender, demos muscle guarding but no spasms PT-OP-K Range of Motion Start: 09/11/23 09:44 Freq: Status: Active Protocol: Document 11/15/23 11:24 NM (Rec: 11/15/23 12:10 NM [id number]) Lumbar Spine Range of Motion Lumbar Spine Active Percentage Flexion 85 Extension 50 Rotation Left 8 Rotation Right 2 Lateral Flexion Left 75 Lateral Flexion Right 50 ROM Limitations Soft Tissue Tightness Comments soreness with ext, B SB, rotation 10/09/23: 3 from floor with cue for leg straight, 60% for R lateral flexion 11/15/23: 3 from floor PT-OP-L Special Tests Start: 09/11/23 09:44 Freq: Status: Active Protocol: Document 09/11/23 09:45 NM (Rec: 09/11/23 10:34 NM [id number]) Special Tests Lumbar Spine Special Tests Plunkett/Quadrant Test Results + Comments local pain B, no radiation distraction Test Results + Comments reports relief of symptoms Straight Leg Raise Test Results + Comments right Slump Test Results - PT-OP-M Strength Start: 09/11/23 09:44 Freq: Status: Active Protocol: Document 11/15/23 11:24 NM (Rec: 11/15/23 12:10 NM [id number]) Trunk Strength Trunk Manual Muscle Testing Flexion 4+ Good+ Extension 4+ Good+ Rotation Left 4 Good Rotation Right 4 Good Lateral Flexion Left 4 Good Lateral Flexion Right 4 Good Comments Pain with resisted R lateral flexion, B rotation 10/09/23: 4/5, pain free 11/15/23: 4/5, pain free PT-OP-Q Treatments Start: 09/11/23 09:44 Freq: Status: Active Protocol: Document 11/24/23 11:21 NM (Rec: 11/24/23 12:15 NM [id number]) Therapeutic Exercises Supine Exercises lower trunk rotation Side bilateral Reps/Minutes 60 Comments cued core bracing, smaller range TrA activation Supine Exercise Name HEP review: 1. leg ext, 2. August alternating Side bilateral Reps/Minutes 1. 20 ea, 2. 10 ea Comments cued to zip up your pants for abdominal brace vs navel to spine Standing Exercises torrez carry Standing Exercise Name 1. torrez carry, 2. suitcase carry Resistance 8# db Reps/Minutes 4x50 ft ea Comments pain free; cued maintain upright posture, no arm swing counter plank bird dog Standing Exercise Name neutral spine Side bilateral Equipment Used plinth Reps/Minutes 10 ea Comments hands sliding on plinth; verbal and tactile cues for form, sequencing Therapeutic Activity Therapeutic Activity overhead reaching Comments 1. squat to 24 step to vegetable picker cones, then rotation of hips and shoulders as unit to place cone above head bilaterally. cued to not twist spine with feet planted 2. squat to overhead reach with 6# tball above head to shelf to simulate placing objects in garage Cued extensively initially for coordination of squat with lift to use legs over extending the trunk picking up objects Comments with hip hinge and squat combination to vegetable picker cones from ground hip hinge Comments Reviewed for form, AROM using hip hinge with squat several reps Cued to push hips back more like shutting car down for form vs solely knee flexion with hips extended log roll Reps/Minutes to L Comments Review of log rolling with verbal cues to increase knee flexion and for aligning shoulder and hip. Educated to slow transition with pause in sidelying vs pushing up immediately and twisting spine PT-OP-T Assessment and Plan Start: 09/11/23 09:44 Freq: Status: Active Protocol: Document 11/24/23 11:21 NM (Rec: 11/24/23 12:15 NM [id number]) Physical Therapy Assessment Goals Five Impairment HEP Short Term Goal (STG) Pt will report compliance with HEP at least 2-3x/wk in order to maximize progress made during PT sessions. 10/09/23: daily STG Duration 6 weeks Mcc Goal (LTG) Pt will report compliance with HEP at least 3x/wk in order to maintain progress and smoothly transition into independent exercise upon discharge from PT 11/01/23: daily LTG Duration 12 weeks Four Impairment 20 STS in 30 seconds, 20 mat Short Term Goal (STG) Pt will be able to perform at least 10 bilateral squats without compensation and back pain <4/10 in order to demonstrate improved BLE and trunk strength for lifting, ADL, and activity 10/09/23: able to perform 10 squats with moderate cues to table, difficulty with coordinating squat & hip hinge 11/01/23: 10 squats with hip hinge to mesh chair w/o pain STG Duration 6 weeks MET Zoo Keeper Goal (LTG) Pt will be able to perform >20 sit to stands in 30 seconds without compensation or back pain in order to demonstrate improved BLE and trunk strength for lifting, ADL, and activity 11/01/23: 19 STS from mesh chair (18), no pain in low back 11/15/23: 15 from 20 chair, fatiguing today LTG Duration 12 weeks PROGRESSING Three Impairment strength/stabilization Impairment B lateral flexion/rotation strength 4/5 Short Term Goal (STG) Pt will improve global trunk strength to at least 5/5 in order to demonstrate improved stability and core bracing during ADLs/activity tolerance 10/09/23: 5/5, improved stabilization STG Duration 6 weeks MET Mcc Goal (LTG) Pt will be able to lift at least 10# from a low surface with good core bracing and body mechanics with back pain <4/10 in order demonstrate improved trunk strength during ADLs/activity tolerance 11/15/23: LTG Duration 12 weeks Two Impairment strength Impairment BLE hip strength 4-/5 to 4/5 Short Term Goal (STG) Pt will improve B hip flexion, abduction, and extension strength to at least 4/5 MMT in order to demonstrate increased BLE strength required for gait, ADLs 10/09/23: 4/5 bilaterally STG Duration 6 weeks MET Mcc Goal (LTG) Pt will improve B hip flexion, abduction, and extension strength to at least 4+/5 MMT in order to demonstrate increased BLE strength required for gait, ADLs 11/01/23: 4+/5 MMT for all LTG Duration 12 weeks MET One Impairment oswestry Impairment score 9/50 Short Term Goal (STG) Pt will decrease oswestry score <9/50 points in order to demonstrate improved activity tolerance, pain management, and QOL 10/09/23: 4/50 STG Duration 6 weeks MET Mcc Goal (LTG) Pt will decrease oswestry score <5/50 points in order to demonstrate improved activity tolerance, pain management, and QOL 10/09/23: 11/01/23: LTG Duration 12 weeks MET Assessment Summary Assessment Pt tolerated session well. Emphasis on core bracing in neutral spine during varying positions. PT educated pt again to not perform extension based exercises prescribed by previous PT or forcing a posterior pelvic tilt due to previous incidents leading to recurrence of pain. PT edcuated pt and had pt successfully demonstrate core bracing in neutral spine in both supine and standing positions while performing core exercise or functional task. Pt continues to have tendency to try to extend trunk when reaching overhead or to limit hip hinge and only perform squat when picking up objects. Pt able to vegetable picker objects from floor using good hip hinge and core bracing without trunk rotation. PT and pt discussed discharge at end of plan of care as pt has progressed well toward goals and symptom management with good maintenance program; pt and PT in agreement. Pt would benefit from skilled PT for global core/lumbar and hip strengthening, in addition to body mechanics training in order to improve activity tolerance and minimize risk of reinjury. Physical Therapy Plan Frequency and Duration Frequency of Treatment 2x/Week Duration of treatment (weeks) 12 Plan of Care Start Date 09/11/23 Plan of Care End Date 12/08/23 Therapeutic Interventions Therapeutic Interventions Aquatic Therapy,Balance Training,Coordination Training ,Gait Training,Home Exercise Program,Joint Mobilizations, Manual Therapy,Neuromuscular Re-education,Orthotic/ Prosthetic Management,Patient/ Caregiver Education,Self-Care/ Home Management,Sensory Integration,Soft Tissue Mobilization,Taping, Therapeutic Activities, Therapeutic Exercises Modalities Biofeedback,Cold Pack/Ice Massage,Electric Stimulation, Hot Packs,Traction- Mechanical ,Ultrasound,Vasopneumatic Devices Other Therapeutic Interventions No thoracic spine mobilizations Other Referrals/Consults Referrals/Consults Recommended Due to pt PMH of thoracic stress fractures, would benefit from additional imaging to clear thoracic spine Next Visit Focus/Plan Next Note Type Treatment Note Next Visit Plan continue with functional core bracing and squatting/hip hinge to vegetable picker objects and place at varying heights. HS flexibility, core bracing in supine/sitting Manual: STM only POC: progress into flexion bias for core/lumbar strengthening, hip strengthening/review and progress Pallof press Review bird dog and supine to sit.
--- NOTE | 2023-11-29 12:16 | PT.OTN ---
Current Diagnoses Low back pain, unspecified (11/29/23) Weakness (11/29/23) Physical Therapy Treatment Note PT-OP-A Visit Information Start: 09/11/23 09:44 Freq: Status: Active Protocol: Document 11/29/23 11:19 AB (Rec: 11/29/23 12:16 AB [id number]) Out-Patient Physical Therapy Visit Information Visit Information Visit Type Treatment Note Visit Note Patient late Visit Start Time 11:25 Visit Stop Time 12:00 Visit Number 19 Number of [employer] Visits 1 Evaluation Information Evaluation Date 09/11/23 Precautions Precautions Hx of thoracic and lumbar stress fractures PT-OP-B Current Condition Start: 09/11/23 09:44 Freq: Status: Active Protocol: Document 09/11/23 09:45 NM (Rec: 09/11/23 10:34 NM [id number]) Current Condition History of Current Condition Onset Date 3 weeks ago Current Complaints pain, decreased activity History of Current Condition Pt presents with low back pain after doing yard work. He was shoveling sand/mulch for 3 hours into a wheelbarrow (to L >R), which over did it. He had immediately increased soreness pain after that day, commonly flared with physical activity now. Reports restricting motions, very easily flared. Pt has hx of stress fracture (T5,7) in spine from from lifting/ carry 75# crate, previous L shoulder injury from fall ( rotator cuff tear) in 2021. Recent lumbar spine imaging reveals no fractures but degenerative disc disease L4-5 and L5-S1. Pt states he has not numbness/tingling, no changes in sensation. Pt reports no falls, but states balance is worsening and he is having balance issues/neuro issues (eyes, ears) Prior Treatments and Tests Previous PT for back pain injuries from (prone extension exercises helpful, traditional PT not helpful) Current Functional Impairments (Reported) Functional Limitations- ADL's just be careful with dressing/shoes Functional Limitations- Mobility/Gait 1/2 hr-1 hr standing, walk 9- 10 blocks (30-45 min) Functional Limitations- Work/School [employer] 1 day/month (lifting, loading) -unable to lift Functional Limitations- Recreation/ yard work: blower/bending to 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 Patient reports performing HEP 2X a week. Patient reports he has resumed the ex he was doing when he hurt Thoracic spine, hanging off bed and holding trunk off bed. PT-OP-E Functional Tests Start: 09/11/23 09:44 Freq: Status: Active Protocol: Document 09/11/23 09:45 NM (Rec: 09/11/23 16:09 NM [id number]) Functional Tests 30 Second Sit to Stand Test Score 20 Comments pain free, valgus, fatiguing , feels pull/stretch Other Forward trunk flexion test Name of Test measured finger to floor Score 4 Comment cued knee ext due to hamstring length, no pain but stretch PT-OP-F Manual Assessment Start: 09/11/23 09:44 Freq: Status: Active Protocol: Document 09/11/23 09:45 NM (Rec: 09/11/23 16:09 NM [id number]) Manual Assessments Soft Tissue Assessment Soft Tissue Mobility Assessment Decreased B hamstring length. Tenderness of B paraspinals, Joint Mobility Assessment Joint Mobility Assessment Decreased lumbar lordosis. Decreased mobility with P-A springing along lumbar and thoracic spine. Midline tenderness at thoracic spine near T7; tenderness slightly lateral to spine at L4-S1. PT-OP-G Mobility & Gait Start: 09/11/23 09:44 Freq: Status: Active Protocol: Document 09/11/23 09:45 NM (Rec: 09/11/23 16:09 NM [id number]) OP Gait Assessment Gait Gait Assistance Required: Independent Distance (Feet) 150 Gait Deviations General Gait Pattern Antalgic,Flexed Trunk Factors Limiting Gait Function Factors Limiting Gait Function Decreased Strength,Pain PT-OP-H Neuro Start: 09/11/23 09:44 Freq: Status: Active Protocol: Document 09/11/23 09:45 NM (Rec: 09/11/23 10:34 NM [id number]) Sensation Evaluation Comments Summary Comments BLE equally intact to light touch sensation Deep Tendon Reflex & Clonus Assessment Deep Tendon Reflex Bilateral Patellar Deep Tendon Reflex 2+ Normal PT-OP-J Posture/Palpation/Skin Start: 09/11/23 09:44 Freq: Status: Active Protocol: Document 09/11/23 09:45 NM (Rec: 09/11/23 16:09 NM [id number]) Posture Evaluation Position Standing Head/C-Spine Posture Forward Head T-Spine Posture Flattened L-Spine Posture Decreased Lordosis Pelvis Posture Posterior Tilted Weight Distribution Balanced Hip Posture (L) Externally Rotated,(R) Externally Rotated Palpation Assessment Location back Palpation Findings Soft Tissue Tightness,Muscle Guarding,Tenderness Palpation Details Tenderness: T7, L4-L5, S1-2. Soft tissue tightness of B paraspinals, QL. Mid-thoracic and lower lumbar spine most tender, demos muscle guarding but no spasms PT-OP-K Range of Motion Start: 09/11/23 09:44 Freq: Status: Active Protocol: Document 11/15/23 11:24 NM (Rec: 11/15/23 12:10 NM [id number]) Lumbar Spine Range of Motion Lumbar Spine Active Percentage Flexion 85 Extension 50 Rotation Left 8 Rotation Right 2 Lateral Flexion Left 75 Lateral Flexion Right 50 ROM Limitations Soft Tissue Tightness Comments soreness with ext, B SB, rotation 10/09/23: 3 from floor with cue for leg straight, 60% for R lateral flexion 11/15/23: 3 from floor PT-OP-L Special Tests Start: 09/11/23 09:44 Freq: Status: Active Protocol: Document 09/11/23 09:45 NM (Rec: 09/11/23 10:34 NM [id number]) Special Tests Lumbar Spine Special Tests Plunkett/Quadrant Test Results + Comments local pain B, no radiation distraction Test Results + Comments reports relief of symptoms Straight Leg Raise Test Results + Comments right Slump Test Results - PT-OP-M Strength Start: 09/11/23 09:44 Freq: Status: Active Protocol: Document 11/15/23 11:24 NM (Rec: 11/15/23 12:10 NM [id number]) Trunk Strength Trunk Manual Muscle Testing Flexion 4+ Good+ Extension 4+ Good+ Rotation Left 4 Good Rotation Right 4 Good Lateral Flexion Left 4 Good Lateral Flexion Right 4 Good Comments Pain with resisted R lateral flexion, B rotation 10/09/23: 4/5, pain free 11/15/23: 4/5, pain free PT-OP-Q Treatments Start: 09/11/23 09:44 Freq: Status: Active Protocol: Document 11/29/23 11:19 AB (Rec: 11/29/23 12:16 AB [id number]) Therapeutic Exercises Supine Exercises lower trunk rotation Side bilateral Reps/Minutes 60 Comments cued core bracing, smaller range francisco j stretch Side bilateral Reps/Minutes 1x60 ea Comments pain free w/ stretch, but diff w/ assume position hamstring stretch from hooklying Side bilateral Reps/Minutes 2x60 Comments pain free; post manual treatment Standing Exercises side steps Side bilateral Reps/Minutes X5 each LE Comments VC to avoid toeing out counter plank bird dog Standing Exercise Name neutral spine Side bilateral Equipment Used plinth Reps/Minutes 10 X2 Comments VC for bracing and improved tech with verbal cue right arm left leg, etc Therapeutic Activity Therapeutic Activity picking up objects Name Floor to waise, waist to knee, overhead to c Reps/Minutes 7 lifts Comments 2/7 lifts initiated with lumbar spine vs LE's and required review weights lfited varied between 1.1 lb to 10 lb log roll Reps/Minutes left and right Comments review with verbal cues to bring LE's onto mat during transition to sidelying vs, post trunk reaches mat, and for breathing, increased emphasis on seated to sidelying mvt Self-Care/Home Management Treatment Education Other Education Patient advised to Hold ie not perform the exercise where he holds his trunk off the edge of the bed until cleared by PT Felicity Hernandez. PT-OP-T Assessment and Plan Start: 09/11/23 09:44 Freq: Status: Active Protocol: Document 11/29/23 11:19 AB (Rec: 11/29/23 12:16 AB [id number]) Physical Therapy Assessment Goals Five Impairment HEP Short Term Goal (STG) Pt will report compliance with HEP at least 2-3x/wk in order to maximize progress made during PT sessions. 10/09/23: daily STG Duration 6 weeks Machine Lacer Goal (LTG) Pt will report compliance with HEP at least 3x/wk in order to maintain progress and smoothly transition into independent exercise upon discharge from PT 11/01/23: daily LTG Duration 12 weeks Four Impairment 20 STS in 30 seconds, 20 mat Short Term Goal (STG) Pt will be able to perform at least 10 bilateral squats without compensation and back pain <4/10 in order to demonstrate improved BLE and trunk strength for lifting, ADL, and activity 10/09/23: able to perform 10 squats with moderate cues to table, difficulty with coordinating squat & hip hinge 11/01/23: 10 squats with hip hinge to mesh chair w/o pain STG Duration 6 weeks MET Half-Way Goal (LTG) Pt will be able to perform >20 sit to stands in 30 seconds without compensation or back pain in order to demonstrate improved BLE and trunk strength for lifting, ADL, and activity 11/01/23: 19 STS from mesh chair (18), no pain in low back 11/15/23: 15 from 20 chair, fatiguing today LTG Duration 12 weeks PROGRESSING Three Impairment strength/stabilization Impairment B lateral flexion/rotation strength 4/5 Short Term Goal (STG) Pt will improve global trunk strength to at least 5/5 in order to demonstrate improved stability and core bracing during ADLs/activity tolerance 10/09/23: 5/5, improved stabilization STG Duration 6 weeks MET Half-Way Goal (LTG) Pt will be able to lift at least 10# from a low surface with good core bracing and body mechanics with back pain <4/10 in order demonstrate improved trunk strength during ADLs/activity tolerance 11/15/23: LTG Duration 12 weeks Two Impairment strength Impairment BLE hip strength 4-/5 to 4/5 Short Term Goal (STG) Pt will improve B hip flexion, abduction, and extension strength to at least 4/5 MMT in order to demonstrate increased BLE strength required for gait, ADLs 10/09/23: 4/5 bilaterally STG Duration 6 weeks MET Machine Lacer Goal (LTG) Pt will improve B hip flexion, abduction, and extension strength to at least 4+/5 MMT in order to demonstrate increased BLE strength required for gait, ADLs 11/01/23: 4+/5 MMT for all LTG Duration 12 weeks MET One Impairment oswestry Impairment score 9/50 Short Term Goal (STG) Pt will decrease oswestry score <9/50 points in order to demonstrate improved activity tolerance, pain management, and QOL 10/09/23: 450 STG Duration 6 weeks MET Machine Lacer Goal (LTG) Pt will decrease oswestry score <5/50 points in order to demonstrate improved activity tolerance, pain management, and QOL 10/09/23: 411/01/23: LTG Duration 12 weeks MET Assessment Summary Assessment Patient sunil session well reporting no increase in pain end of session. Patient did require increased verbal cues and review for 2/7 lifts. Physical Therapy Plan Frequency and Duration Frequency of Treatment 2x/Week Duration of treatment (weeks) 12 Plan of Care Start Date 09/11/23 Plan of Care End Date 12/08/23 Next Visit Focus/Plan Next Note Type Discharge Summary Next Visit Plan continue with functional core bracing and squatting/hip hinge to picking tech objects and place at varying heights. HS flexibility, core bracing in supine/sitting Manual: STM only POC: progress into flexion bias for core/lumbar strengthening, hip strengthening/review and progress Pallof press Review cece ortega a
--- NOTE | 2023-12-01 12:07 | PT.OTN ---
Current Diagnoses Low back pain, unspecified (12/01/23) Weakness (12/01/23) Physical Therapy Treatment Note PT-OP-A Visit Information Start: 09/11/23 09:44 Freq: Status: Active Protocol: Document 12/01/23 11:20 NM (Rec: 12/01/23 08:38 NM [id number]) Out-Patient Physical Therapy Visit Information Visit Information Visit Type Discharge Summary Visit Start Time 11:20 Visit Stop Time 12:00 Visit Number 20 Evaluation Information Evaluation Date 09/11/23 Precautions Precautions Hx of thoracic and lumbar stress fractures PT-OP-B Current Condition Start: 09/11/23 09:44 Freq: Status: Active Protocol: Document 09/11/23 09:45 NM (Rec: 09/11/23 10:34 NM [id number]) Current Condition History of Current Condition Onset Date 3 weeks ago Current Complaints pain, decreased activity History of Current Condition Pt presents with low back pain after doing yard work. He was shoveling sand/mulch for 3 hours into a wheelbarrow (to L >R), which over did it. He had immediately increased soreness pain after that day, commonly flared with physical activity now. Reports restricting motions, very easily flared. Pt has hx of stress fracture (T5,7) in spine from from lifting/ carry 75# crate, previous L shoulder injury from fall ( rotator cuff tear) in 2021. Recent lumbar spine imaging reveals no fractures but degenerative disc disease L4-5 and L5-S1. Pt states he has not numbness/tingling, no changes in sensation. Pt reports no falls, but states balance is worsening and he is having balance issues/neuro issues (eyes, ears) Prior Treatments and Tests Previous PT for back pain injuries from (prone extension exercises helpful, traditional PT not helpful) Current Functional Impairments (Reported) Functional Limitations- ADL's just be careful with dressing/shoes Functional Limitations- Mobility/Gait 1/2 hr-1 hr standing, walk 9- 10 blocks (30-45 min) Functional Limitations- Work/School [employer] 1 day/month (lifting, loading) -unable to lift Functional Limitations- Recreation/ yard work: blower/bending to 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 (1 hr) Functional Limitations- Other sit 1.5 [address] in [address] PT-OP-C Subjective Start: 09/11/23 09:44 Freq: Status: Active Protocol: Document 12/01/23 11:20 NM (Rec: 12/01/23 08:38 NM [id number]) OP-PT Subjective Patient Comments Patient Comments Pt reports PT-OP-E Functional Tests Start: 09/11/23 09:44 Freq: Status: Active Protocol: Document 09/11/23 09:45 NM (Rec: 09/11/23 16:09 NM [id number]) Functional Tests 30 Second Sit to Stand Test Score 20 Comments pain free, valgus, fatiguing , feels pull/stretch Other Forward trunk flexion test Name of Test measured finger to floor Score 4 Comment cued knee ext due to hamstring length, no pain but stretch PT-OP-F Manual Assessment Start: 09/11/23 09:44 Freq: Status: Active Protocol: Document 09/11/23 09:45 NM (Rec: 09/11/23 16:09 NM [id number]) Manual Assessments Soft Tissue Assessment Soft Tissue Mobility Assessment Decreased B hamstring length. Tenderness of B paraspinals, Joint Mobility Assessment Joint Mobility Assessment Decreased lumbar lordosis. Decreased mobility with P-A springing along lumbar and thoracic spine. Midline tenderness at thoracic spine near T7; tenderness slightly lateral to spine at L4-S1. PT-OP-G Mobility & Gait Start: 09/11/23 09:44 Freq: Status: Active Protocol: Document 09/11/23 09:45 NM (Rec: 09/11/23 16:09 NM [id number]) OP Gait Assessment Gait Gait Assistance Required: Independent Distance (Feet) 150 Gait Deviations General Gait Pattern Antalgic,Flexed Trunk Factors Limiting Gait Function Factors Limiting Gait Function Decreased Strength,Pain PT-OP-H Neuro Start: 09/11/23 09:44 Freq: Status: Active Protocol: Document 09/11/23 09:45 NM (Rec: 09/11/23 10:34 NM [id number]) Sensation Evaluation Comments Summary Comments BLE equally intact to light touch sensation Deep Tendon Reflex & Clonus Assessment Deep Tendon Reflex Bilateral Patellar Deep Tendon Reflex 2+ Normal PT-OP-J Posture/Palpation/Skin Start: 09/11/23 09:44 Freq: Status: Active Protocol: Document 09/11/23 09:45 NM (Rec: 09/11/23 16:09 NM [id number]) Posture Evaluation Position Standing Head/C-Spine Posture Forward Head T-Spine Posture Flattened L-Spine Posture Decreased Lordosis Pelvis Posture Posterior Tilted Weight Distribution Balanced Hip Posture (L) Externally Rotated,(R) Externally Rotated Palpation Assessment Location back Palpation Findings Soft Tissue Tightness,Muscle Guarding,Tenderness Palpation Details Tenderness: T7, L4-L5, S1-2. Soft tissue tightness of B paraspinals, QL. Mid-thoracic and lower lumbar spine most tender, demos muscle guarding but no spasms PT-OP-K Range of Motion Start: 09/11/23 09:44 Freq: Status: Active Protocol: Document 12/01/23 11:20 NM (Rec: 12/01/23 08:38 NM [id number]) Lumbar Spine Range of Motion Lumbar Spine Active Percentage Flexion 85 Extension 50 Rotation Left 8 Rotation Right 2 Lateral Flexion Left 75 Lateral Flexion Right 50 ROM Limitations Soft Tissue Tightness Comments soreness with ext, B SB, rotation 10/09/23: 3 from floor with cue for leg straight, 60% for R lateral flexion 11/15/23: 3 from floor PT-OP-L Special Tests Start: 09/11/23 09:44 Freq: Status: Active Protocol: Document 09/11/23 09:45 NM (Rec: 09/11/23 10:34 NM [id number]) Special Tests Lumbar Spine Special Tests Plunkett/Quadrant Test Results + Comments local pain B, no radiation distraction Test Results + Comments reports relief of symptoms Straight Leg Raise Test Results + Comments right Slump Test Results - PT-OP-M Strength Start: 09/11/23 09:44 Freq: Status: Active Protocol: Document 12/01/23 11:20 NM (Rec: 12/01/23 08:38 NM [id number]) Trunk Strength Trunk Manual Muscle Testing Flexion 4+ Good+ Extension 4+ Good+ Rotation Left 4 Good Rotation Right 4 Good Lateral Flexion Left 4 Good Lateral Flexion Right 4 Good Comments Pain with resisted R lateral flexion, B rotation 10/09/23: 4/5, pain free 11/15/23: 4/5, pain free Hip Strength Hip Manual Muscle Testing Right Flexion (L2) 4 Good Extension (S1) 4- Good- Abduction 4- Good- Adduction 4+ Good+ External Rotation 4 Good Internal Rotation 4 Good Left Flexion (L2) 4 Good Extension (S1) 4- Good- Abduction 4- Good- Adduction 4+ Good+ External Rotation 4 Good Internal Rotation 4 Good PT-OP-Q Treatments Start: 09/11/23 09:44 Freq: Status: Active Protocol: Document 12/01/23 11:20 NM (Rec: 12/01/23 08:38 NM [id number]) Therapeutic Exercises Sitting Exercises HSC Side bilateral Resistance cables level 4 Reps/Minutes 3x8 LAQ Side bilateral Resistance cables level 4 Reps/Minutes 3x8 Comments cued TKE Standing Exercises sit to stand Standing Exercise Name 30 sec STS test Side bilateral Reps/Minutes 17 Comments cued for form row Side bilateral Resistance cable 3 plates Reps/Minutes 3x8 Comments edu to use cable machine not body wt rowing machine at gym for form squat Standing Exercise Name 1. squat to chair then stand and lift overhead, 2. goblet squat w/ ball Side bilateral Resistance 10# tball Reps/Minutes 10 ea Comments cued for neutral spine, core bracing high row Side bilateral Resistance cables 2 plates Reps/Minutes 3x10 Comments cued for form; for use at gym counter plank bird dog Standing Exercise Name neutral spine Side bilateral Equipment Used plinth Reps/Minutes 10 ea Comments cued for bracing and improved tech with verbal cue right arm left leg, etc Self-Care/Home Management Treatment Education Patient Education Body Mechanics,Home Exercise Program,Joint Protection,Pain Management Other Education Educated not to perform extension-based exercises due to pt radiographs, increased symptoms, and previous exacerbations from same exercises; use of anatomy model to demonstrate explanation Educated also on slow progression with gym, not perform maximal reps or resistance every time with variation between low reps/ higher resistance and high reps/lower resistacne. Recommended starting lower resistance for up to 3x8, then progress resistance once able to comfortably perform 3x15. PT-OP-T Assessment and Plan Start: 09/11/23 09:44 Freq: Status: Active Protocol: Document 12/01/23 11:20 NM (Rec: 12/01/23 08:38 NM [id number]) Physical Therapy Assessment Goals Five Impairment HEP Short Term Goal (STG) Pt will report compliance with HEP at least 2-3x/wk in order to maximize progress made during PT sessions. 10/09/23: daily STG Duration 6 weeks Penitentiary Goal (LTG) Pt will report compliance with HEP at least 3x/wk in order to maintain progress and smoothly transition into independent exercise upon discharge from PT 5/22/24: daily LTG Duration 12 weeks MET Four Impairment 20 STS in 30 seconds, 20 mat Short Term Goal (STG) Pt will be able to perform at least 10 bilateral squats without compensation and back pain <4/10 in order to demonstrate improved BLE and trunk strength for lifting, ADL, and activity 10/09/23: able to perform 10 squats with moderate cues to table, difficulty with coordinating squat & hip hinge 11/01/23: 10 squats with hip hinge to mesh chair w/o pain STG Duration 6 weeks MET Telecasting Technician Goal (LTG) Pt will be able to perform >20 sit to stands in 30 seconds without compensation or back pain in order to demonstrate improved BLE and trunk strength for lifting, ADL, and activity 11/01/23: 19 STS from mesh chair (18), no pain in low back 11/15/23: 15 from 20 chair, fatiguing today 12/01/23: 17 with good form from chair in 30 seconds (can do more but form compensates) LTG Duration 12 weeks PARTIALLY MET Three Impairment strength/stabilization Impairment B lateral flexion/rotation strength 09/14 Short Term Goal (STG) Pt will improve global trunk strength to at least 5/5 in order to demonstrate improved stability and core bracing during ADLs/activity tolerance 10/09/23: 5/5, improved stabilization STG Duration 6 weeks MET Telecasting Technician Goal (LTG) Pt will be able to lift at least 10# from a low surface with good core bracing and body mechanics with back pain <4/10 in order demonstrate improved trunk strength during ADLs/activity tolerance 11/22/23: can lift 10# from ground with improved form; prn cueing but able to perform pain free and without cues for form for most reps LTG Duration 12 weeks MET Two Impairment strength Impairment BLE hip strength 4-/5 to 5 Short Term Goal (STG) Pt will improve B hip flexion, abduction, and extension strength to at least 4/5 MMT in order to demonstrate increased BLE strength required for gait, ADLs 10/09/23: 4/5 bilaterally STG Duration 6 weeks MET Telecasting Technician Goal (LTG) Pt will improve B hip flexion, abduction, and extension strength to at least 4+/5 MMT in order to demonstrate increased BLE strength required for gait, ADLs 11/01/23: 4+/5 MMT for all LTG Duration 12 weeks MET One Impairment oswestry Impairment score 9/50 Short Term Goal (STG) Pt will decrease oswestry score <9/50 points in order to demonstrate improved activity tolerance, pain management, and QOL 10/09/23: 4/50 STG Duration 6 weeks MET Penitentiary Goal (LTG) Pt will decrease oswestry score <5/50 points in order to demonstrate improved activity tolerance, pain management, and QOL 10/09/23: 11/01/23: 12/01/23: 5/10 LTG Duration 12 weeks MET Progress Towards Goals Progress Towards Goals Progressing Toward Goals,Goals Met Progress Comments STS goal partially met; all other goals met Assessment Summary Assessment Pt tolerated session well. Session emphasis on reviewing past HEP as needed for maintenance program and reviewing proper form with gym equipment for safety. PT educated pt extensively while pt performing exercises for form, correct load, and how to progress safely. Pt demonstrates good form with most exercises. Continued with squat using hip hinge to poultry picking machine tender objects from the ground and for reaching overhead. Pt able to perform squat with more smooth form vs segmentally, but still requires occasional cues for core bracing. PT continued to cue pt for neutral spine with squats and counter top bird dogs. Pt able to coordinate well with occasional cueing. Physical Therapy Plan Frequency and Duration Frequency of Treatment 2x/Week Duration of treatment (weeks) 12 Plan of Care Start Date 09/11/23 Plan of Care End Date 12/08/23 Therapeutic Interventions Therapeutic Interventions Aquatic Therapy,Balance Training,Coordination Training ,Gait Training,Home Exercise Program,Joint Mobilizations, Manual Therapy,Neuromuscular Re-education,Orthotic/ Prosthetic Management,Patient/ Caregiver Education,Self-Care/ Home Management,Sensory Integration,Soft Tissue Mobilization,Taping, Therapeutic Activities, Therapeutic Exercises Modalities Biofeedback,Cold Pack/Ice Massage,Electric Stimulation, Hot Packs,Traction- Mechanical ,Ultrasound,Vasopneumatic Devices Other Therapeutic Interventions No thoracic spine mobilizations Other Referrals/Consults Referrals/Consults Recommended Due to pt PMH of thoracic stress fractures, would benefit from additional imaging to clear thoracic spine Discharge Physical Therapy Discharge Reasons Goals Met Next Visit Focus/Plan Next Visit Plan Discharge from PT
== END 2024-01-01 11:34 | disposition home or self-care (01) ==
LOC: PHYS 11:15
PROVIDERS: Family Provider Internal Medicine; PCP Internal Medicine; Referring Provider Internal Medicine; Visit Provider Internal Medicine
DX: M54.50 Low back pain, unspecified (principal); R53.1 Weakness
CPT/HCPCS: 97110; 97140; 97161; 97530; 97535

== ENCOUNTER → 2024-03-26 12:53 | Outpatient (CLI) | payer MEDICARE, OTHER, SELFPAY ==
[2024-03-26 14:02] LABS: Prostate Specific Antigen 1.59 ng/mL (0.10-4.00)
== END ==
LOC: LAB 12:54
PROVIDERS: Family Provider Internal Medicine; PCP Internal Medicine; Referring Provider Urology; Visit Provider Urology
DX: N40.1 Benign prostatic hyperplasia with lower urinary tract symptoms (principal); N13.8 Other obstructive and reflux uropathy
CPT/HCPCS: 36415; 84153

== ENCOUNTER → 2024-04-06 12:20 | Outpatient (CLI) | payer MEDICARE, OTHER, SELFPAY ==
[2024-04-06 13:23] LABS: Add Manual Diff / Slide Review NO; Basophils Absolute Auto 0 /uL (0-100); Basophils Percent Auto 0.8 % (0-2); Eosinophils Absolute Auto 100 /uL (0-450); Eosinophils Percent Auto 4.3 % (2-4); Hematocrit 44.6 % (41-53); Hemoglobin 14.5 g/dL (13.5-17.5); Lymphocytes Absolute Auto 800 /uL (1100-4500); Lymphocytes Percent Auto 24.6 % (25-40); Mean Corpuscular HGB Conc 32.5 % (30-36); Mean Corpuscular Hemoglobin 31.6 PG (26-34); Mean Corpuscular Volume 97.3 fL (80-100); Monocytes Absolute Auto 400 /uL (0-900); Monocytes Percent Auto 13.6 % (3-14); Neutrophils Absolute Auto 1800 /uL (1500-7000); Neutrophils Percent Auto 56.7 % (50-75); Platelet Count 155 X10^3/uL (150-400); Red Blood Cell Count 4.58 X10^6/uL (4.5-5.9); Red Cell Distribution Width 13.3 % (11.6-14.8); White Blood Cell Count 3.2 X10^3/uL (4.5-11.0)
[2024-04-06 13:30] LABS: Hemoglobin A1C% w Est Avg Glu 6.3 % (4.0-6.0)
[2024-04-06 13:37] LABS: Alanine Aminotransferase 38 IU/L (<50); Albumin 4.5 g/dL (3.5-5.0); Albumin Globulin Ratio 1.9 (1.0-2.8); Alkaline Phosphatase 82 U/L (38-126); Aspartate Aminotransferase 49 IU/L (17-59); Bilirubin Total 0.8 mg/dL (0.2-1.3); Blood Urea Nitrogen 20 mg/dL (9-20); Carbon Dioxide 26 mmol/L (22-32); Chloride 106 mmol/L (98-107); Cholesterol 145 mg/dL (140-199); Estimated Glomerular Filt Rate > 60 mL/min (>60); Globulin 2.4 g/dL (1.7-4.1); Glucose 114 mg/dL (80-110); HDL Cholesterol 68 mg/dL (40-60); HEMOLYSIS 56 (0-50); LDL Cholesterol Calculated 67 mg/dL (<100); Potassium 4.6 mmol/L (3.4-5.1); Sodium 138 mmol/L (137-145); Total Protein 6.9 g/dL (6.3-8.2); Triglycerides 50 mg/dL (35-150)
[2024-04-06 13:54] LABS: Free T4, Direct Thyroxine 0.83 ng/dL (0.78-2.19)
[2024-04-06 14:07] LABS: Thyroid Stimulating Hormone 1.49 uIU/mL (0.47-4.68)
[2024-04-10 11:22] LABS: Lipoprotein (a) 330.4 nmol/L (<75.0)
== END ==
PROVIDERS: Family Provider Internal Medicine; PCP Internal Medicine; Referring Provider Internal Medicine Endocrinology, Diabetes & Metabolism; Visit Provider Internal Medicine Endocrinology, Diabetes & Metabolism
DX: E78.01 Familial hypercholesterolemia (principal); R79.9 Abnormal finding of blood chemistry, unspecified
CPT/HCPCS: 36415; 80053; 80061; 83036; 83695; 84439; 84443; 85025

== ENCOUNTER 2024-06-26 19:55 | Emergency (ER) | payer MEDICARE, OTHER, SELFPAY ==
[2024-06-26 19:57] VITALS: BP 117/73; PULSE 74; RESP 18; TEMP 36.9; O2SAT 96; BMI 25.0
--- NOTE | 2024-06-26 20:17 | DI.CT.S_ITS ---
PROCEDURE: CT CERVICAL SPINE WO CON INDICATIONS: fall, head trauma TECHNIQUE: Noncontrast 3 mm thick sections acquired from the skull base to the T4 level. Sagittal and coronal reformats were then constructed. For radiation dose reduction, the following was used: automated exposure control, adjustment of mA and/or kV according to patient size. COMPARISON: None. FINDINGS: Image quality: Diagnostic. Bones: No fractures or dislocations. Visualized superior ribs are intact. Soft tissues: Prevertebral soft tissues are normal in thickness. No paravertebral hematomas. No apical pneumothoraces. IMPRESSION: No acute displaced fracture or traumatic subluxation. Approved by: Carrie Duque M.D.,Ph.D. on 06/26/2024 at 21:17
--- NOTE | 2024-06-26 20:17 | DI.CT.S_ITS ---
PROCEDURE: CT HEAD/BRAIN WO CON INDICATIONS: fall, head trauma TECHNIQUE: Noncontrast 4.5 mm thick angled axial sections acquired from the foramen magnum to the vertex, with coronal and sagittal reformats. For radiation dose reduction, the following was used: automated exposure control, adjustment of mA and/or kV according to patient size. COMPARISON: [facility], CT, CT HEAD/BRAIN WO CON, 03/28/2018, 10:14. FINDINGS: Image quality: Diagnostic. CSF spaces: Basal cisterns are patent. No extra-axial fluid collections. The ventricles are symmetric in size and shape. Brain: No intracranial bleeds or masses. There is cerebral volume loss for age, with resultant ventricular and sulcal prominence. There are periventricular and deep white matter chronic small vessel ischemic changes. There is intracranial internal carotid artery atherosclerosis. Skull and face: Calvarium and visualized facial bones appear intact, without suspicious lesions. Left frontal scalp hematoma/swelling Sinuses: Visualized sinuses and mastoids are clear. IMPRESSION: No acute intracranial pathology. Left frontal scalp hematoma without underlying calvarial fracture. Approved by: Carrie Duque M.D.,Ph.D. on 06/26/2024 at 21:16
--- NOTE | 2024-06-26 23:43 | ED_ITS ---
HPI - Fall General Chief Complaint: Fall Stated Complaint: GFL, hit head, on blood thinners Time Seen by Provider: 06/26/24 23:42 Source: patient, RN notes reviewed and old records reviewed Mode of arrival: Ambulatory Limitations: no limitations History of Present Illness HPI Narrative: 83-year-old male presents with complaint of trip and fall with ground level fall hitting his head. Patient states no loss of consciousness but was stunned. He still feels a little bit stunned or off. Has felt a little bit off balance but been able to ambulate. Denies any neck pain, no chest pain or shortness of breath. Has a little bit of pain in his right knee but states he has been able to walk on it and ambulate without issue has a little abrasion also little bit discomfort of his thumb but states full range of motion he does not think he broke it more that he just landed on it. Patient denies any chest pain or shortness of breath. No nausea or vomiting. No other GI or urinary symptoms. No loss of bowel or bladder control. Patient states he does take an aspirin daily. Denies any other anticoagulants. Allergic to sulfa. Former smoker, occasional alcohol, no recreational drugs. Related Data Home Medications Medication Instructions Recorded Confirmed ezetimibe 10 mg tablet (Zetia) 10 mg PO QPM ##0 06/10/12 04/26/24 multivitamin 1 tab PO DAILY 03/28/18 04/26/24 niacin 500 mg tablet,extended 500 mg PO DAILY 07/14/20 04/26/24 release rosuvastatin 40 mg tablet 40 mg PO DAILY 07/14/20 04/26/24 omeprazole 20 mg capsule,delayed 20 mg PO DAILY 09/04/20 04/26/24 release tadalafil 10 mg tablet 10 mg PO DAILY PRN 09/04/20 04/26/24 cholecalciferol (vitamin D3) 50 50 mcg PO DAILY 09/08/20 04/26/24 mcg (2,000 unit) capsule omega-3 fatty acids 1,250 mg 1,250 mg PO DAILY 09/08/20 04/26/24 capsule vit R-[id number]-[id number] palmetto 160 cap PO 09/08/20 04/26/24 mg-[place] africanum 12.5 mg capsule (Urinozinc Prostate Classic) s-adenosylmethionine 400 mg tablet 400 mg PO DAILY PRN 03/25/21 04/26/24 (MARILU-e) ascorbic acid (vitamin C) 500 mg 500 mg PO DAILY PRN onset of cold 07/30/21 04/26/24 tablet (Vitamin C) symptoms aspirin 81 mg tablet 81 mg PO Q OTHER DAY 07/30/21 04/26/24 clobetasol 0.05 % scalp solution 1 applic topical 2XW PRN 07/30/21 04/26/24 turmeric root extract 500 mg 1,000 mg PO DAILY PRN 07/30/21 04/26/24 capsule Previous Rx's Medication Instructions Recorded tamsulosin 0.4 mg capsule 0.8 mg (2 x 0.4 mg) PO .hs #180 12/05/22 caps finasteride 5 mg tablet 5 mg PO DAILY #90 tabs 01/02/24 Allergies Allergy/AdvReac Type Severity Reaction Status Date / Time Sulfa (Sulfonamide Allergy Unknown Verified 04/26/24 09:21 Antibiotics) Review of Systems Review of Systems ROS Unobtainable: All systems reviewed & are unremarkable except as noted in HPI and below Patient History Medical History 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 Diabetes type 2, controlled Primary osteoarthritis involving multiple joints Impaired glucose tolerance History of adenomatous polyp of colon 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) Essential hypertension Mixed hyperlipidemia Coronary heart disease Arthritis Urinary frequency History of migraine Gastroesophageal reflux disease History of TIA (transient ischemic attack) History of myocardial infarction Migraine Surgical History History of circumcision History of testicular surgery History of hernia repair History of coronary artery stent placement (~1999) History of angioplasty Family History Father Hyperlipidemia Coronary artery disease Mother Hearing impairment Arrhythmia Social History marital status: household members: none occupational status: previously employed Smoking Status: Former smoker Tobacco: How many years used: 5 alcohol intake: current caffeine: Yes Smoking Status: Former smoker alcohol intake frequency: 0-2 drinks per day Exam Narrative Exam Narrative: GEN: Patient appears in moderate distress. HEAD: Patient has laceration tracking from the upper frontal scalp towards the left brow proximally 6 cm in length, no raccoon/Truong sign. NECK: Nontender, painless range of motion, trachea midline [Negative/positive] Nexus criteria, no line tenderness, distracting injury, altered mental status, neuro deficit, recent EtOH. EYES: PERRLA, EOMI ENT: External inspection normal, trachea is midline, TM's are normal no hemotypanum, Nares are clear, no septal hematoma, no dental or oral injury, airway is normal and with normal occlusion, No bony tenderness RESP: Chest is nontender and has symmetric movement, no ecchymosis, breath sounds are normal no crackles, wheezes or rales CVS: Heart sounds are normal, no murmur noted, No JVD. ABG/GI: Nontender, soft, normal bowel sounds, no distention, no organomegaly, pelvic rock is negative NEURO: Oriented AOx3, neuro is grossly intact, sensation and motor is normal all 4 extremities moving, cranial nerves II through XII are intact, GCS is 15 PSYCH: Normal mood and affect SKIN: Abrasion to right knee, warm and dry, no crepitus and without decubitus BACK: No CVA tenderness, no vertebral tenderness, no step-off's, no crepitus EXT: Atraumatic, joints are nontender. Patient does not have any bony tenderness of the hand on the right with full range of motion. No other bony tenderness of the right knee or other extremities. Hips are nontender, no pedal edema, normal color and temperature, normal range of motion of extremities with normal tendon exam, 2+ pulses in all four extremities Initial Vital Signs Initial Vital Signs: Vital Signs Temperature 98.4 F 06/26/24 19:57 Pulse Rate 74 06/26/24 19:57 Respiratory Rate 18 06/26/24 19:57 Blood Pressure 117/73 06/26/24 19:57 Pulse Oximetry 96 06/26/24 19:57 Oxygen Delivery Method Room Air 06/26/24 19:57 Procedures Laceration Repair Laceration 1: Site: scalp and face Side (If applicable): left Size (cm): 6 Description: irregular (2 irregular laceration in line) and clean Depth: simple, single layer Local Anesthetic: lidocaine 1% and with epi Amount of anesthesia used (mL): 8 Pre-repair: wound explored, irrigated extensively and deep structures intact Skin layer closed with: vicryl Skin layer suture size: 5-0 Number of sutures: 15 Technique: simple, interrupted Scores [place] Head Rule Patient on blood thinners: Yes (asa) Seizure after injury: No GCS < 15 at 2 hr post trauma: No Suspected open or depressed skull fracture: No Any sign of basilar skull fracture (hemotympanum, raccoon eyes, Truong's sign, CSF kurt-/rhinorrhea): No Two or more episodes of vomiting: No Age greater or equal to 65 years: Yes Retrograde amnesia to the event greater or equal to 30 min: No Dangerous Mechanism (pedestrian vs. mv, occupant ejected from mv, fall from >3 ft or > 5 stairs): No Recommendation: Consider CT. The [place] Head CT Rule cannot rule out need for Imaging. GCS Brenna coma scale eye opening: Spontaneous [place] coma scale verbal response: Orientated Brenna coma scale motor response: Obey commands [place] coma scale total score: 15 Course Orders Ordered: Discontinued Medications Acetaminophen (Acetaminophen 325 Mg Tablet) 975 mg PO NOW ONE Stop: 06/27/24 01:34 Last Admin: 06/27/24 01:51 Dose: Not Given Documented By: AB Vital Signs Vital signs: Vital Signs - 8 hr 06/27/24 01:51 Pulse Rate 58 L Respiratory Rate 16 Blood Pressure 168/87 H Pulse Oximetry 97 Oxygen Delivery Method Room Air MDM - Fall MDM Narrative Medical decision making narrative: 83-year-old male with mechanical ground level fall on aspirin. Patient had a trip and fall outside hit head on asphalt no loss of consciousness. Based on age and take aspirin daily the sounds like maybe more of a supplement had CN CT were obtained which are both negative for acute change. Patient does have a large laceration over his forehead requiring repair. Patient states tetanus is up-to-date. Does have symptoms consistent with concussion. Head CT shows no acute change CT cervical spine shows no acute fracture or traumatic subluxation. Patient tolerated well discussed return precautions all questions answered. Patient was given a dose of Tylenol. Discharge Plan Departure Patient Disposition: Home Clinical Impression: Concussion, Facial laceration, Fall Instructions: DI for Concussion Activity Restrictions/Additional Instructions: Please follow up for recheck with your physician in the next week if you are having persistent symptoms. You have sutures in your forehead but these are absorbable you do not have to have them removed unless they are still present at 7 days. Wound Care: Keep wound(s) clean and dry. Wash daily with soap and water only. Do not use over the counter products (alcohol or peroxide)on the wounds unless instructed by a physician. If wound condition worsens (increased/expanding redness, developing fluid blisters, or worsening pain), either contact your doctor for an urgent re- assessment , or return to the Emergency Department. You can continue your home medications as prescribed. You can take acetaminophen up to a 1000 mg every 6 hours as needed for pain. Please return for severe headaches, new redness, swelling or signs of infection at your laceration, new neck or back pain, chest pain or shortness of breath, nausea or vomiting, new numbness tingling or weakness difficulty with ambulation or other new or concerning changes. Prescriptions: No Action ezetimibe [Zetia] 10 MG tablet 10 mg PO QPM Qty: 0 tadalafil 10 mg tablet 10 mg PO DAILY PRN Rx Instructions: administer approximately 30min before sexual activity; do not use more than 1 dose per 24hrs omeprazole 20 mg capsule,delayed release(DR/EC) 20 mg PO DAILY tamsulosin 0.4 mg capsule 0.8 mg PO .hs Qty: 180 3RF Rx Instructions: Take 2 tabs by mouth at HS finasteride 5 mg tablet 5 mg PO DAILY Qty: 90 3RF clobetasol 0.05 % solution 1 applic topical 2XW PRN Patient Comments: APPLY TO AFFECTED AREA ON SCALP DAILY FOR ITCHING--USE FOR 2 WEEK ON AND 2 WEEKS OFF THE MEDICATION multivitamin Tablet 1 tab PO DAILY ascorbic acid (vitamin C) [Vitamin C] 500 mg tablet 500 mg PO DAILY PRN (Reason: onset of cold symptoms) rosuvastatin 40 mg tablet 40 mg PO DAILY niacin 500 mg tablet extended release 500 mg PO DAILY aspirin 81 mg tablet 81 mg PO Q OTHER DAY cholecalciferol (vitamin D3) 50 mcg (2,000 unit) capsule 50 mcg PO DAILY omega-3 fatty acids 1,250 mg capsule 1,250 mg PO DAILY Urinozinc Prostate Classic 160-12.5 mg capsule PO MARILU-e 400 mg tablet 400 mg PO DAILY PRN Rx Instructions: administer on an empty stomach turmeric root extract 500 mg capsule 1,000 mg PO DAILY PRN Referrals: Rogers Martinez MD [Primary Care Provider] - Stand Alone Forms: Patient Portal/API/Survey
[2024-06-27 01:51] VITALS: BP 168/87; PULSE 58; RESP 16; O2SAT 97
== END 2024-06-27 01:52 | disposition home or self-care (01) ==
PROVIDERS: Emergency Provider Emergency Medicine; Family Provider Internal Medicine; PCP Internal Medicine
DX: S06.0X0A Concussion without loss of consciousness, initial encounter (principal); S01.01XA Laceration without foreign body of scalp, initial encounter; S01.81XA Laceration without foreign body of other part of head, initial encounter; R40.2412 Glasgow coma scale score 13-15, at arrival to emergency department; M25.561 Pain in right knee; W01.0XXA Fall on same level from slipping, tripping and stumbling without subsequent striking against object, initial encounter; Z79.82 Long term (current) use of aspirin; Z88.2 Allergy status to sulfonamides; Z87.891 Personal history of nicotine dependence
CPT/HCPCS: 12014; 70450; 72125; 99283; 99284

== ENCOUNTER → 2024-10-15 08:43 | Outpatient (CLI) | payer MEDICARE, OTHER, SELFPAY ==
[2024-10-15 09:28] LABS: Hemoglobin A1C% w Est Avg Glu 5.9 % (4.0-6.0)
[2024-10-15 09:45] LABS: Alanine Aminotransferase 40 IU/L (<50); Albumin 4.1 g/dL (3.5-5.0); Albumin Globulin Ratio 1.9 (1.0-2.8); Alkaline Phosphatase 72 U/L (38-126); Aspartate Aminotransferase 42 IU/L (17-59); Blood Urea Nitrogen 17 mg/dL (9-20); Calcium 9.3 mg/dL (8.4-10.2); Carbon Dioxide 29 mmol/L (22-32); Chloride 104 mmol/L (98-107); Cholesterol 156 mg/dL (140-199); Estimated Glomerular Filt Rate > 60 mL/min (>60); Globulin 2.2 g/dL (1.7-4.1); Glucose 121 mg/dL (70-99); HDL Cholesterol 61 mg/dL (40-60); HEMOLYSIS < 15 (0-50); LDL Cholesterol Calculated 81 mg/dL (<100); Potassium 4.2 mmol/L (3.4-5.1); Sodium 137 mmol/L (137-145); Total Protein 6.3 g/dL (6.3-8.2); Triglycerides 69 mg/dL (35-150)
== END ==
PROVIDERS: Family Provider Internal Medicine; PCP Internal Medicine; Referring Provider Internal Medicine; Visit Provider Internal Medicine
DX: E11.9 Type 2 diabetes mellitus without complications (principal); E78.2 Mixed hyperlipidemia; I10 Essential (primary) hypertension
CPT/HCPCS: 36415; 80053; 80061; 83036

== ENCOUNTER → 2025-03-21 10:28 | Outpatient (CLI) | payer MEDICARE, OTHER, SELFPAY ==
[2025-03-21 11:31] LABS: Hemoglobin A1C% w Est Avg Glu 6.2 % (4.0-6.0)
[2025-03-21 12:22] LABS: Alanine Aminotransferase 29 IU/L (<50); Albumin 4.4 g/dL (3.5-5.0); Albumin Globulin Ratio 1.8 (1.0-2.8); Alkaline Phosphatase 83 U/L (38-126); Blood Urea Nitrogen 18 mg/dL (9-20); Calcium 9.4 mg/dL (8.4-10.2); Carbon Dioxide 27 mmol/L (22-32); Chloride 104 mmol/L (98-107); Estimated Glomerular Filt Rate > 60 mL/min (>60); Globulin 2.5 g/dL (1.7-4.1); Glucose 118 mg/dL (70-99); HEMOLYSIS < 15 (0-50); Lipase 87 U/L (23-300); Potassium 4.5 mmol/L (3.4-5.1); Sodium 139 mmol/L (137-145); Total Protein 6.9 g/dL (6.3-8.2)
[2025-03-21 12:41] LABS: Free T4, Direct Thyroxine 1.05 ng/dL (0.78-2.19)
[2025-03-21 12:49] LABS: Prostate Specific Antigen 1.89 ng/mL (0.10-4.00)
[2025-03-21 12:55] LABS: Thyroid Stimulating Hormone 2.20 uIU/mL (0.47-4.68)
== END ==
PROVIDERS: Family Provider Internal Medicine; PCP Internal Medicine; Referring Provider Urology; Visit Provider Urology
DX: N40.1 Benign prostatic hyperplasia with lower urinary tract symptoms (principal); E11.9 Type 2 diabetes mellitus without complications; Z12.5 Encounter for screening for malignant neoplasm of prostate; N13.8 Other obstructive and reflux uropathy; I10 Essential (primary) hypertension; E78.2 Mixed hyperlipidemia
CPT/HCPCS: 36415; 80053; 83036; 83690; 84153; 84439; 84443